=== PATIENT | male | born 1945 | race Caucasian/White ===

== ENCOUNTER 2016-12-02 07:48 | Emergency (ER) | payer MEDICARE ==
[2016-12-02 08:50] LABS: Urine Bacteria Absent (Absent); Urine Bilirubin Negative (Negative); Urine Glucose Negative (Negative); Urine Nitrite Negative (Negative)
[2016-12-02] MEDS ORDERED: Sulfamethox/Trimethoprim DS 800/160* TAB PO ONE (09:38)
--- NOTE | 2016-12-02 09:46 | ED ---
Nargis Carrasquillo Matthew, scribed for Ray Lodr MD on 12/02/16 at 0813 . GI/ HPI - HPI Summary HPI Summary: A 71 y/o male presents to the ED with urinary retention since yesterday night. Associated symptoms include subprapubic pain that is described as burning and rated 10/10 in severity, and dysuria. The patient denies fever. He has been unable to urinated since last night. He's on flomax for an enlarged prostate and hasn't recently been seen by a urologist. - History of Current Complaint Chief Complaint: EDUrogenitalProblems Time Seen by Provider: 12/02/16 08:03 Stated Complaint: UNABLE TO URINATE Hx Obtained From: Patient Onset/Duration: Started Days Ago, Atraumatic, Still Present Timing: Constant Severity: Moderate Current Severity: Moderate Pain Intensity: 10 Location of Pain: Suprapubic Pain Characteristics: Burning Associated Signs and Symptoms: Negative: Fever - Additional Pertinent History Primary Care Physician: CHUCK - Allergy/Home Medications Allergies/Adverse Reactions: Allergies Allergy/AdvReac Type Severity Reaction Status Date / Time Penicillins [PCN] Allergy Mild Rash Verified 12/02/16 07:50 PMH/Surg Hx/FS Hx/Imm Hx Endocrine/Hematology History: Denies: Hx Anticoagulant Therapy, Hx Diabetes, Hx Thyroid Disease Cardiovascular History: Denies: Hx Hypertension, Hx Pacemaker/ICD Respiratory History: Denies: Hx Asthma, Hx Chronic Obstructive Pulmonary Disease (COPD) History: Reports: Hx Benign Prostatic Hyperplasia Denies: Hx Renal Disease Musculoskeletal History: Denies: Hx Back Problems Sensory History: Reports: Hx Contacts or Glasses Opthamlomology History: Reports: Hx Contacts or Glasses Neurological History: Denies: Hx Dementia, Hx Seizures Psychiatric History: Denies: Hx Substance Abuse - Cancer History Cancer Type, Location and Year: bph - Surgical History Surgery Procedure, Year, and Place: HERNIA REPAIR 08/29/16. TESTICLE - Immunization History Date of Influenza Vaccine: up to date Infectious Disease History: No Infectious Disease History: Denies: Hx Hepatitis, Hx Human Immunodeficiency Virus (HIV), Traveled Outside the US in Last 30 Days - Family History Known Family History: Positive: Other - CA Family History: FHx of CA (brothers) - Social History Alcohol Use: Rare Hx Substance Use: No Substance Use Type: Reports: None Hx Tobacco Use: Yes Smoking Status (MU): Former Smoker Review of Systems Constitutional: Negative Negative: Fever Eyes: Negative ENT: Negative Cardiovascular: Negative Respiratory: Negative Gastrointestinal: Negative Genitourinary: Other - urinary retention Positive: burning, dysuria Musculoskeletal: Negative Skin: Negative Neurological: Negative Positive: Anxious All Other Systems Reviewed And Are Negative: Yes Physical Exam Triage Information Reviewed: Yes Vital Signs On Initial Exam: Initial Vitals Temp Pulse Resp BP Pulse Ox 98.8 F 96 16 146/78 98 12/02/16 07:50 12/02/16 07:50 12/02/16 07:50 12/02/16 07:50 12/02/16 07:50 Vital Signs Reviewed: Yes Appearance: Positive: Well-Appearing, Pain Distress - modertae Skin: Positive: Warm, Skin Color Reflects Adequate Perfusion, Dry Head/Face: Positive: Normal Head/Face Inspection Eyes: Positive: EOMI, [place] ENT: Positive: Normal ENT inspection Neck: Positive: Supple, Nontender Cardiovascular: Positive: RRR Abdomen Description: Positive: Soft, Other: - subprapubic tenderness. Negative : Guarding Musculoskeletal: Positive: Normal, Strength/ROM Intact Neurological: Positive: Normal, Sensory/Motor Intact, Alert, Oriented to Person Place, Time Psychiatric: Positive: Normal, Affect/Mood Appropriate Diagnostics - Vital Signs Vital Signs Temp Pulse Resp BP Pulse Ox 12/02/16 07:50 98.8 F 96 16 146/78 98 - Laboratory Lab Results: Lab Results 12/02/16 Range/Units 08:26 Urine Color Yellow Urine Appearance Clear Urine pH 6.0 (5-9) Ur Specific [place] 1.005 L (1.010-1.030) Urine Protein Negative (Negative) Urine Ketones Negative (Negative) Urine Blood 3+ H (Negative) Urine Nitrate Negative (Negative) Urine Bilirubin Negative (Negative) Urine Urobilinogen Negative (Negative) Ur Leukocyte Esterase 3+ H (Negative) Urine WBC (Auto) 2+(11-20/hpf) H (Absent) Urine RBC (Auto) 3+(>10/hpf) H (Absent) Urine Bacteria Absent (Absent) Urine Glucose Negative (Negative) Lab Statement: Any lab studies that have been ordered have been reviewed, and results considered in the medical decision making process. Re-Evaluation - Re-Evaluation First Eval Re-Evaluation Time: 09:36 Change: Improved Comment: The labs were reviewed with the patient and he states that he's feeling much better. GIGU Course/Dx - Course Assessment/Plan: WELL IN ED. PRESSURE RELIEVED WITH LUCERO. 400ML OUT. WILL RX BACTRIM AND F/U UROLOGY. DISCHARGE HOME STABLE. - Diagnoses Provider Diagnoses: Urinary retention, UTI (urinary tract infection) Discharge - Discharge Plan Condition: Stable Disposition: HOME Prescriptions: Sulfamethox/Trimethoprim DS* [Bactrim DS 800/160 TAB*] 1 tab PO BID #19 tab Patient Education Materials: Urinary Retention in Men (ED), Urinary Tract Infection in Men (ED), Lucero Catheter Placement and Care (ED) Referrals: Nickie Agosto, ASSOCIATE PROFESSOR OF ART [Primary Care Provider] - Additional Instructions: FOLLOW UP WITH YOUR DOCTOR AND WITH UROLOGY. CALL UROLOGY TODAY FOR FOLLOW UP. RETURN TO THE EMERGENCY DEPARTMENT FOR ANY WORSENING OF YOUR CONDITION; PAIN, FEVER, YOU FEEL ILL, THE LUCERO CATHETER IS NOT DRAINING OR QUESTIONS OR CONCERNS. The documentation as recorded by the Nargis smith Matthew accurately reflects the service I personally performed and the decisions made by me, Ray Lord MD.
[2016-12-02 10:02] VITALS: BP 113/70
--- NOTE | 2016-12-05 07:44 | PN ---
Progress Note - Progress Note Note: Patient discharged on Bactrim, which is sensitive on culture report. No further action needed.
== END 2016-12-02 10:01 | disposition home or self-care (01) ==
LOC: ED 07:48
DX: N40.1 Benign prostatic hyperplasia with lower urinary tract symptoms (principal); N39.0 Urinary tract infection, site not specified; R33.8 Other retention of urine; Z88.0 Allergy status to penicillin
CPT/HCPCS: 51702; 81003; 81015; 87077; 87086; 87186; 99282; A9270-GY

== ENCOUNTER 2017-01-24 08:15 | Inpatient (IN) | payer MEDICARE ==
[2017-01-24] MEDS ORDERED: NS 0.9% 1000 ML* 1,000 ML IV ONE (08:33)
--- NOTE | 2017-01-24 09:28 | RAD ---
INDICATION: Shortness of breath. COMPARISON: Comparison is made with a prior chest x-ray study from September 30, 2016. TECHNIQUE: AP and lateral views of the chest were obtained. FINDINGS: The heart is within normal limits in size. Mediastinal and hilar contours appear within normal limits. The lungs are hyperinflated and clear with flattening of the diaphragms consistent with chronic obstructive pulmonary disease. No pleural effusion is seen. IMPRESSION: COPD, NO EVIDENCE FOR ACUTE FINDING.
[2017-01-24] MEDS: Albuterol/Ipratropium NEB.SOL* Albuterol 2.5 MG/Ipratropium 0.5 MG 3 ML INH SCH ×3 (09:37→10:43)
[2017-01-24 09:52] LABS: Hematocrit 40 % (42-52); Hemoglobin 12.9 g/dl (14.0-18.0); Mean Corpuscular HGB Conc 32 g/dl (31-36); Mean Corpuscular Hemoglobin 28 pg (27-31); Mean Corpuscular Volume 86 fL (80-94); Mean Platelet Volume 10 um3 (7.4-10.4); Red Blood Count 4.64 10^6/ul (4.0-5.4); Red Cell Distribution Width 18 % (10.5-15)
[2017-01-24 10:05] LABS: C Reactive Protein 7.77 mg/L (< 5.00); Calcium 9.1 mg/dL (8.6-10.3); EGFR Non-African American 73.9 (>60); Globulin 2.5 g/dL (2-4); Potassium 3.3 mmol/L (3.5-5.0); Total Bilirubin 0.5 mg/dL (0.2-1.0); Total Protein 6.5 g/dL (6.4-8.9)
[2017-01-24 10:07] LABS: Troponin I 0.01 ng/mL (<0.04)
[2017-01-24] MEDS ORDERED: Albuterol/Ipratropium NEB.SOL* Albuterol 2.5 MG/Ipratropium 0.5 MG 3 ML INH PRN (11:36)
[2017-01-24] MEDS ORDERED: Potassium Chlor TAB* 20 MEQ TAB.ER PO ONE (11:38)
[2017-01-24] MEDS ORDERED: Acetaminophen TAB* 325 MG PO PRN (11:38)
--- NOTE | 2017-01-24 14:49 | ED ---
Jony Carrasquillo Billy, scribed for Bret Sanchez MD on 01/24/17 at 0832 . Shortness of Breath - HPI Summary HPI Summary: Patient is a 71 year-old male with a history of emphysema [place] [facility] [place]. Patient states that his symptoms began 3-4 days ago and have gradually worsened over time. SOB is improved with upright position, worse laying down. Duoneb and Solu-Medrol given en route LEAD NETWORK ARCHITECT improved his symptoms. He also reports a moderately productive cough, yellow sputum. Denies chest pain , N/V, fevers, or chills. - History of Current Complaint Chief Complaint: EDShortnessOfBreath Time Seen by Provider: 01/24/17 08:28 Hx Obtained From: Patient Onset/Duration: Gradual Onset, Lasting Days, Still Present Timing: Constant Current Severity: Moderate Dyspnea At: Rest Aggrevating Factors: Recumbent Position Alleviating Factors: EMS Tx, Upright Position Associated Signs & Symptoms: Cough (Productive) - Allergy/Home Medications Allergies/Adverse Reactions: Allergies Allergy/AdvReac Type Severity Reaction Status Date / Time Penicillins [PCN] Allergy Mild Rash Verified 12/02/16 07:50 PMH/Surg Hx/FS Hx/Imm Hx Endocrine/Hematology History: Denies: Hx Anticoagulant Therapy, Hx Diabetes, Hx Thyroid Disease Cardiovascular History: Denies: Hx Hypertension, Hx Pacemaker/ICD Respiratory History: Reports: Hx Chronic Obstructive Pulmonary Disease (COPD), Other Respiratory Problems/Disorders - emphysema Denies: Hx Asthma History: Reports: Hx Benign Prostatic Hyperplasia Denies: Hx Renal Disease Musculoskeletal History: Denies: Hx Back Problems Sensory History: Reports: Hx Contacts or Glasses Opthamlomology History: Reports: Hx Contacts or Glasses Neurological History: Denies: Hx Dementia, Hx Seizures Psychiatric History: Denies: Hx Substance Abuse - Cancer History Cancer Type, Location and Year: bph - Surgical History Surgery Procedure, Year, and Place: HERNIA REPAIR 08/29/16. TESTICLE - Immunization History Date of Influenza Vaccine: up to date Infectious Disease History: No Infectious Disease History: Denies: Hx Hepatitis, Hx Human Immunodeficiency Virus (HIV), Traveled Outside the US in Last 30 Days - Family History Known Family History: Positive: Diabetes - sister, Other - CA Family History: FHx of CA (brothers) - Social History Alcohol Use: Rare Hx Substance Use: No Substance Use Type: Reports: None Hx Tobacco Use: Yes Smoking Status (MU): Former Smoker - quit 2016 Review of Systems Negative: Fever, Chills Negative: Chest Pain Positive: Shortness Of Breath, Cough Negative: Vomiting, Nausea All Other Systems Reviewed And Are Negative: Yes Physical Exam - Summary Physical Exam Summary: The patient is a thin male in no acute distress and in no acute pain. The skin is warm and dry and skin color reflects adequate perfusion. HEENT: The head is normocephalic and atraumatic. The pupils are equal and reactive. The conjunctivae are clear and without drainage. Nares are patent and without drainage. Mouth reveals moist mucous membranes and the throat is without erythema and exudate. The external ears are intact. The ear canals are patent and without drainage. The tympanic membranes are intact. Neck is supple with full range of motion and non-tender. There are no carotid bruits. There is no neck vein distension. Respiratory: Chest is non-tender. Patient is speaking in full sentences. Bilateral wheezing, decreased breath sounds crackles in bases of the lungs. Cardiovascular: Heart is regular rate and rhythm. There is no murmur or rub auscultated. There is no peripheral edema and pulses are symmetrical and equal. Abdomen: The abdomen is soft and non-tender. There are normal bowel sounds heard in all four quadrants and there is no organomegaly palpated. Musculoskeletal: There is no back pain noted. Extremities are non-tender with full range of motion. There is good capillary refill. There is no peripheral edema or calf tenderness elicited. Neurological: Patient is alert and oriented to person, place and time. The patient has symmetrical motor strength in all four extremities. Cranial nerves are grossly intact. Deep tendon reflexes are symmetrical and equal in all four extremities. Psychiatric: The patient has an appropriate affect and does not exhibit any anxiety or depression. Triage Information Reviewed: Yes Vital Signs On Initial Exam: Initial Vitals Temp Pulse Resp BP Pulse Ox 98.6 F 77 22 144/73 95 01/24/17 08:22 01/24/17 08:22 01/24/17 08:22 01/24/17 08:22 01/24/17 08:22 Vital Signs Reviewed: Yes Diagnostics - Vital Signs Vital Signs Temp Pulse Resp BP Pulse Ox 01/24/17 08:22 98.6 F 77 22 144/73 95 - Laboratory Result Diagrams: 01/24/17 09:15 01/24/17 09:15 Lab Statement: Any lab studies that have been ordered have been reviewed, and results considered in the medical decision making process. - Radiology CXR Radiology Interpretation Completed By: Radiologist - COPD. NO ACUTE FINDINGS. - EKG 0834 EKG Interpretation: NSR 72 bpm, no ST elevation Course/Dx - Course Assessment/Plan: Patient is a 71 year-old male with a history of emphysema BIBA to [facility] presenting with SOB. Patient states that his symptoms began 3-4 days ago and have gradually worsened over time. SOB is improved with upright position , worse laying down. Duoneb and Solu-Medrol given en route LEAD NETWORK ARCHITECT improved his symptoms. He also reports a moderately productive cough, yellow sputum. Denies chest pain, N/V, fevers, or chills. Bloodwork with slight anemia, no bandemia, potassium of 3.3, and CRP of 7.77. Influenza A and B are negative. CXR shows COPD without evidence of acute findings. EKG showed NSR 77 bpm. EMS gave the patient 2x Duonebs, solu-medrol, and 2 g of magnesium en route. He was unable to speak in full sentences at that time. By the time of his arrival, he was able to speak in full sentences, although he still has diffuse wheezing and crackles. He was given more duonebs with improvement. However, when we removed the oxygen, he became hypoxic. Therefore I discussed the findings and test results with Dr. Herrera who accepted the patient for admission. A&Ox3, hemodynamically stable. - Diagnoses Provider Diagnoses: COPD exacerbation - Physician Notifications Discussed Care of Patient With: Dr. Herrera (hospitalist) @ 1030: accepted admission. Discharge - Discharge Plan Condition: Stable Disposition: ADMITTED TO [facility] Referrals: Nickie Agosto, AFTER SCHOOL PROGRAM TEACHER [Primary Care Provider] - The documentation as recorded by the Jony smith Billy accurately reflects the service I personally performed and the decisions made by me, Bret Sanchez MD.
--- NOTE | 2017-01-24 14:55 | HP ---
AMENDED REPORT NOW INCLUDES COSIGNER DESIGNATION - ESIGNED BEFORE ADJUSTMENT HISTORY AND PHYSICAL: DATE OF ADMISSION: 01/24/17 PRIMARY CARE PHYSICIAN: Nickie Agosto in [place]. ATTENDING PHYSICIAN: Dr. Justin Herrera *(dictation provided by Yara Kennedy NP). CHIEF COMPLAINT: Shortness of breath. HISTORY OF PRESENT ILLNESS: Mr. Reyes is a 71-year-old male with a past medical history of prolonged smoking for over 50 years and emphysema who presents to the hospital today with complaint of shortness of breath. Mr. Reyes states that his symptoms began approximately 2 to 3 days ago. He describes chest congestion and coughing. Last night he became acutely much more ill. He had difficulty lying flat in bed. He was very short of breath. By early this morning he could hardly catch his breath at all and EMS was called. EMS notes that the patient was tripoding and unable to speak in complete sentences. They transported him to the emergency room. En route, he was given Solu-Medrol and magnesium with good improvement. Mr. Reyes denies any other complaints. He has had no fevers, no chills, no unintended weight loss, no chest pain. No nausea or vomiting. He has been eating well. In the emergency room, Mr. Reyes was requiring 2 L nasal cannula but was breathing easily. Laboratory values were essentially unremarkable. Chest x- ray was negative. PAST MEDICAL HISTORY: 1. Emphysema. 2. BPH. 3. Duodenal ulcer in September 2016. 4. Right inguinal hernia repair in 2015. 5. Tonsillectomy. 6. Adenoidectomy. MEDICATIONS: 1. Finasteride 5 mg p.o. daily. 2. Omeprazole 20 mg p.o. b.i.d. 3. Tamsulosin 0.4 mg p.o. daily. 4. Albuterol p.r.n. ALLERGIES: PENICILLIN. FAMILY HISTORY: The patient's mother and father but he does not know the cause of their . He has 2 brothers who related to cancer. SOCIAL HISTORY: The patient is to be a 1 to 2 pack a day smoker for over 49 years but quit last year. Denies any alcohol use. Has been reported to have occasional marijuana use. He lives with his son but his daughter Jennifer Haile is the healthcare proxy. REVIEW OF SYSTEMS: A 14-point review of systems was completed on Mr. Reyes and all those not mentioned above were negative. PHYSICAL EXAMINATION GENERAL: Mr. Reyes is sitting up in the bed. He is in no acute distress. VITAL SIGNS: Blood pressure 128/67, heart rate 67, temperature 98.6, respiratory rate 21, O2 saturation 98% on 2 L nasal cannula. LUNGS: Diminished with wheezing bilaterally. There is no accessory muscle use. HEART: S1, S2. No murmur, rub or gallop and regular. ABDOMEN: Soft, nontender with bowel sounds positive x4. EXTREMITIES: There is no cyanosis or edema. NEUROLOGIC: He is alert and oriented x3. He moves all extremities equally. There is no facial asymmetry or focal weakness. Extraocular movements are intact. SKIN: Intact. LABORATORY DATA AND DIAGNOSTIC STUDIES: Sodium 140, potassium 3.3, chloride 100, serum bicarbonate 32, BUN 22, creatinine 1.00, glucose 130. WBC 5.0, hemoglobin 12.0, hematocrit 40, platelets 112. Lactic acid 1.4. CRP 7.77, troponin 0.01. Flu swab is negative. EKG shows a sinus rhythm with a heart rate in 80s. No evidence of ischemia. Chest x-ray is negative. ASSESSMENT: Mr. Reyes is a 71-year-old male with past medical history of emphysema who presents to the hospital today with 2 to 3 days of congestion culminating in severe shortness of breath last evening with suspected chronic obstructive pulmonary disease exacerbation. Our plans are for inpatient admission as the expected length of stay will be greater than 2 days for the following. 1. Chronic obstructive pulmonary disease exacerbation: The patient has been given Solu-Medrol en route to the hospital with good improvement. Plan to continue Solu- Medrol 60 mg IV q.12 h. The patient can go on to prednisone taper when clear clinical improvement is noted. The patient is on doxycycline for antibiotic coverage. I see no evidence of pneumonia on chest x-ray. The patient is on DuoNeb q.4 h. as needed. She will have oxygen available per respiratory therapy protocol. The patient is not currently on any medications other than albuterol outpatient. The patient would benefit from long-acting agent such as Spiriva and possibly Advair as well at the time of discharge. 2. Benign prostatic hypertrophy. Continue finasteride and tamsulosin. 3. History of duodenal ulcer. Continue omeprazole. 4. DVT prophylaxis with SCDs. 5. Code status is DNR with a trial period of intubation. A MOLST form has been completed. TIME SPENT: Approximately 60 minutes were spent on the admission of this patient, more than half time spent with the patient at the bedside reviewing the events leading up to this hospitalization, performing physical examination and reviewing my [place] [id number]/CPS #: [id number] JACQUELINE
[2017-01-24 15:07] LABS: Urine Bacteria Absent (Absent); Urine Bilirubin Negative (Negative); Urine Glucose Negative (Negative); Urine Nitrite Negative (Negative)
[2017-01-24] MEDS: Omeprazole CAP* 20 MG PO SCH (15:51)
[2017-01-24] MEDS: DOXYcycline CAP(*) 100 MG PO SCH (20:08)
[2017-01-24] MEDS: methylPREDNISolone SOD SUCC* 125 MG 2 ML VIAL IV SCH (20:08)
[2017-01-25] MEDS: Finasteride TAB* 5 MG PO SCH (07:48)
[2017-01-25] MEDS: DOXYcycline CAP(*) 100 MG PO SCH ×2 (07:48→21:07)
[2017-01-25] MEDS: methylPREDNISolone SOD SUCC* 125 MG 2 ML VIAL IV SCH ×2 (07:48→21:07)
[2017-01-25] MEDS: Omeprazole CAP* 20 MG PO SCH ×2 (07:48→17:23)
[2017-01-25] MEDS: Tamsulosin CAP* 0.4 MG PO SCH (07:48)
[2017-01-25 07:59] LABS: Hematocrit 38 % (42-52); Hemoglobin 12.5 g/dl (14.0-18.0); Mean Corpuscular HGB Conc 33 g/dl (31-36); Mean Corpuscular Hemoglobin 28 pg (27-31); Mean Corpuscular Volume 86 fL (80-94); Mean Platelet Volume 9 um3 (7.4-10.4); Red Blood Count 4.42 10^6/ul (4.0-5.4); Red Cell Distribution Width 18 % (10.5-15); White Blood Count 10.1 10^3/ul (3.5-10.8)
[2017-01-25 08:13] LABS: BUN/Creatinine Ratio 25.3 (8-20); Calcium 8.8 mg/dL (8.6-10.3); EGFR African American 124.7 (>60); Magnesium 1.9 mg/dL (1.9-2.7); Potassium 4.8 mmol/L (3.5-5.0)
--- NOTE | 2017-01-25 16:32 | PN ---
Subjective Date of Service: 01/25/17 Interval History: patient reports he feels better today. Continue to have intermittent cough that is occasionally productive reporting thick white/yellow sputum. Reports sob with exertion. No fever or chills. reports good appetite. Objective Active Medications: Acetaminophen (Tylenol Tab*) 650 mg PO Q6H PRN PRN Reason: PAIN Albuterol/Ipratropium (Duoneb Neb.Tammie*) 1 neb INH Q4H PRN PRN Reason: SOB/WHEEZING Doxycycline Hyclate (Vibramycin Cap(*)) 100 mg PO BID [facility] Last Admin: 01/25/17 07:48 Dose: 100 mg Finasteride (Proscar Tab*) 5 mg PO DAILY [facility] Last Admin: 01/25/17 07:48 Dose: 5 mg Methylprednisolone Sodium Succinate (Solu-Medrol*) 40 mg IV Q12H [facility] Omeprazole (Prilosec Cap*) 20 mg PO BID@0730,1630 [facility] Last Admin: 01/25/17 07:48 Dose: 20 mg Tamsulosin HCl (Flomax Cap*) 0.4 mg PO DAILY [facility] Last Admin: 01/25/17 07:48 Dose: 0.4 mg Vital Signs 01/24/17 01/24/17 01/24/17 16:48 19:43 20:00 Temperature 97.5 F Pulse Rate 65 Respiratory 20 20 Rate Blood Pressure 121/66 (mmHg) O2 Sat by Pulse 98 97 Oximetry 01/24/17 01/25/17 01/25/17 23:23 00:00 03:27 Temperature 97.6 F 97.4 F Pulse Rate 69 57 Respiratory 16 16 Rate Blood Pressure 122/67 114/66 (mmHg) O2 Sat by Pulse 98 97 99 Oximetry 01/25/17 01/25/17 01/25/17 08:00 08:04 09:09 Temperature 97.2 F Pulse Rate 63 72 Respiratory 16 19 16 Rate Blood Pressure 139/66 (mmHg) O2 Sat by Pulse 99 97 99 Oximetry Oxygen Devices in Use Now: None Appearance: elderly male sitting up in bed in NAD A+Ox3 Eyes: No Scleral Icterus, PERRLA Ears/Nose/Mouth/Throat: NL Teeth, Lips, Gums, Mucous Membranes Moist Neck: NL Appearance and Movements; NL JVP Respiratory: Symmetrical Chest Expansion and Respiratory Effort, - - expiratory wheezing throughout with good aeration noted Cardiovascular: NL Sounds; No Murmurs; No JVD, RRR, No Edema Abdominal: NL Sounds; No Tenderness; No Distention Extremities: No Edema, No Clubbing, Cyanosis Skin: No Rash or Ulcers, No Nodules or Sclerosis Neurological: Alert and Oriented x 3, NL Sensation, NL Muscle Strength and Tone Lines/Tubes/Other Access: Clean, Dry and Intact Peripheral IV Nutrition: Taking PO's Result Diagrams: 01/25/17 07:46 01/25/17 07:46 Microbiology and Other Data: Microbiology 01/24/17 14:35 Gram Stain - Final Sputum Expectorated Assess/Plan/Problems-Billing Assessment: Mr. Reyes is 71 yo male with PMH emphysema who presents to the hospital on 01/24 with c/o congestion and SOB. Per daughter 60 lb unintentional weight loss in the past year and is being worked up by PCP. - Patient Problems (1) COPD exacerbation Comment: - negative influenza. suspect reactive airway 2nd to viral illness. - negative blood cx. No leukocytosis or fevers. - improving. continue agressive pulm tolieting. - start Duoneb Q4hr while awake. - Continue Doxy, titrate solumedrol. - start mucinex (2) BPH (benign prostatic hyperplasia) Comment: - continue flomax (3) Hx of duodenal ulcer Comment: - 09/2016 - continue PPI (4) DVT prophylaxis Comment: HSQ Status and Disposition: inpatient with COPD exacerbation. Home when stable. Updated daughter Jennifer.
[2017-01-25] MEDS: guaiFENesin ER TAB 600 MG PO SCH ×2 (17:23→21:06)
[2017-01-25] MEDS: Albuterol/Ipratropium NEB.SOL* Albuterol 2.5 MG/Ipratropium 0.5 MG 3 ML INH SCH ×3 (17:45→23:02)
[2017-01-25] MEDS: Heparin VIAL(*) 5000 UNITS/ML VIAL (FIVE THOUSAND) SUBCUT SCH (21:02)
[2017-01-26] MEDS: Albuterol/Ipratropium NEB.SOL* Albuterol 2.5 MG/Ipratropium 0.5 MG 3 ML INH SCH ×3 (04:37→11:41)
[2017-01-26 08:35] VITALS: BP 108/58
[2017-01-26 09:08] LABS: Hematocrit 39 % (42-52); Hemoglobin 12.7 g/dl (14.0-18.0); Mean Corpuscular HGB Conc 33 g/dl (31-36); Mean Corpuscular Hemoglobin 28 pg (27-31); Mean Corpuscular Volume 85 fL (80-94); Mean Platelet Volume 10 um3 (7.4-10.4); Red Cell Distribution Width 18 % (10.5-15); White Blood Count 10.1 10^3/ul (3.5-10.8)
[2017-01-26 09:09] LABS: BUN/Creatinine Ratio 29.6 (8-20); EGFR African American 121.2 (>60); EGFR Non-African American 94.2 (>60); Potassium 4.3 mmol/L (3.5-5.0)
[2017-01-26] MEDS: guaiFENesin ER TAB 600 MG PO SCH (09:11)
[2017-01-26] MEDS: DOXYcycline CAP(*) 100 MG PO SCH (09:11)
[2017-01-26] MEDS: Finasteride TAB* 5 MG PO SCH (09:11)
[2017-01-26] MEDS: Tamsulosin CAP* 0.4 MG PO SCH (09:11)
[2017-01-26] MEDS: Heparin VIAL(*) 5000 UNITS/ML VIAL (FIVE THOUSAND) SUBCUT SCH (09:11)
[2017-01-26] MEDS: methylPREDNISolone SOD SUCC* 125 MG 2 ML VIAL IV SCH (09:12)
--- NOTE | 2017-01-26 11:30 | DCNOTE ---
Subjective Date of Service: 01/26/17 Interval History: Patient reports he feels much better today and wants to go home. Reports he slept well last nihght. Cough is much better, less sputum production. Reports SOB is much better and feels that he is at his baseline. He reports he isnt very active at home and mostly sits around and watches TV. Pt ambulated on RA 96 %. No fevers or chills. Reports good appetite. No N/V/D or abdominal pain. Discussed his weight loss over the past year per daughter around 60 lbs. He reports his appetite is good and he eats well. Denies night sweats. He reports his brothers also lost "a lot of weight" when they were older but states they did have colon and prostate cancer. His last colonoscopy was "a long time ago". Encouraged patient to f/u with his PCP and consider another colonoscopy. Objective Active Medications: Acetaminophen (Tylenol Tab*) 650 mg PO Q6H PRN PRN Reason: PAIN Albuterol/Ipratropium (Duoneb Neb.Tammie*) 1 neb INH [id number] AWAKE [facility] Last Admin: 01/26/17 08:10 Dose: 1 neb Doxycycline Hyclate (Vibramycin Cap(*)) 100 mg PO BID [facility] Last Admin: 01/26/17 09:11 Dose: 100 mg Finasteride (Proscar Tab*) 5 mg PO DAILY [facility] Last Admin: 01/26/17 09:11 Dose: 5 mg Guaifenesin (Mucinex*) 1,200 mg PO Q12HR [facility] Last Admin: 01/26/17 09:11 Dose: 1,200 mg Heparin Sodium (Porcine) (Heparin Vial(*)) 5,000 units SUBCUT Q12HR [facility] Last Admin: 01/26/17 09:11 Dose: 5,000 units Methylprednisolone Sodium Succinate (Solu-Medrol*) 40 mg IV Q12H [facility] Last Admin: 01/26/17 09:12 Dose: 40 mg Omeprazole (Prilosec Cap*) 20 mg PO BID@0730,1630 [facility] Last Admin: 01/25/17 17:23 Dose: 20 mg Tamsulosin HCl (Flomax Cap*) 0.4 mg PO DAILY [facility] Last Admin: 01/26/17 09:11 Dose: 0.4 mg Vital Signs 01/25/17 01/25/17 01/25/17 15:59 16:35 20:00 Temperature 98.2 F Pulse Rate 60 66 Respiratory 28 16 18 Rate Blood Pressure 126/79 (mmHg) O2 Sat by Pulse 99 93 Oximetry 01/25/17 01/25/17 01/26/17 23:03 23:43 00:00 Temperature 97.3 F Pulse Rate 60 73 Respiratory 18 16 Rate Blood Pressure 113/59 (mmHg) O2 Sat by Pulse 99 91 93 Oximetry 01/26/17 01/26/17 01/26/17 00:57 07:52 08:00 Temperature 97.7 F Pulse Rate 64 Respiratory 24 16 Rate Blood Pressure 108/58 (mmHg) O2 Sat by Pulse 93 94 99 Oximetry 01/26/17 08:12 Temperature Pulse Rate 78 Respiratory 16 Rate Blood Pressure (mmHg) O2 Sat by Pulse 99 Oximetry Oxygen Devices in Use Now: None Appearance: 71 yo male sitting up in bed in NAD. A+O x3. Eyes: No Scleral Icterus, PERRLA Ears/Nose/Mouth/Throat: NL Teeth, Lips, Gums, Mucous Membranes Moist Neck: NL Appearance and Movements; NL JVP Respiratory: Symmetrical Chest Expansion and Respiratory Effort, - - mild right exp wheezes noted in upper lobe, left lung clear. no dyspnes noted Cardiovascular: NL Sounds; No Murmurs; No JVD, RRR, No Edema Abdominal: NL Sounds; No Tenderness; No Distention Lymphatic: No Cervical Adenopathy Extremities: No Edema, No Clubbing, Cyanosis Skin: No Rash or Ulcers, No Nodules or Sclerosis Neurological: Alert and Oriented x 3, NL Sensation, NL Gait, NL Muscle Strength and Tone Lines/Tubes/Other Access: Clean, Dry and Intact PICC Line Nutrition: Taking PO's Result Diagrams: 01/26/17 08:39 01/26/17 08:39 Microbiology and Other Data: Microbiology 01/24/17 14:35 Gram Stain - Final Sputum Expectorated Assess/Plan/Problems-Billing Assessment: Mr. Reyes is 71 yo male with PMH emphysema who presents to the hospital on 01/24 with c/o congestion and SOB. Per daughter 60 lb unintentional weight loss in the past year - Patient Problems (1) COPD exacerbation Comment: - negative influenza. suspect reactive airway 2nd to viral illness. Much improvement today. Off oxygen. - negative blood, urine and sputum cx. No leukocytosis or fevers. - plan to set pt up with a home nebulizer - Continue Doxy x 5 days and prednisione x 3 days - continue mucinex - send pt home on Spirivia and albuterol HFA. Follow up with PCP and referral to pulm. (2) Weight loss Comment: - unointentional weight loss. Close f/u with PCP. Pt should undergo a colonoscopy and prostate screening - protein and albumin wnls. (3) BPH (benign prostatic hyperplasia) Comment: - continue flomax (4) Hx of duodenal ulcer Comment: - 09/2016 - continue PPI (5) DVT prophylaxis Comment: HSQ Status and Disposition: inpatient with COPD exacerbation. stable for DC to home.
[2017-01-26] MEDS: Omeprazole CAP* 20 MG PO SCH (12:42)
--- NOTE | 2017-01-26 13:21 | DS ---
DISCHARGE SUMMARY: DATE OF ADMISSION: 01/24/17 DATE OF DISCHARGE: 01/26/17 PROVIDER: Luis Angel Davis NP. ATTENDING PHYSICIAN: Dr. Rosado *(report dictated by Luis Angel Davis NP). PRIMARY CARE PROVIDER: Ashlyn Stinson. PRIMARY DIAGNOSIS: Chronic obstructive pulmonary disease exacerbation. SECONDARY DIAGNOSES: 1. Long history of tobacco abuse quitting 1 year ago. 2. Unintentional weight loss in the past year, approximately 60 pounds per daughter. 3. History of emphysema. 4. Benign prostatic hyperplasia. 5. Duodenal ulcer in September 2016 which was thought to be secondary to Aleve. 6. Right inguinal hernia repair in 2016. 7. Status post tonsillectomy. 8. Status post adenoidectomy. DISCHARGE MEDICATIONS: 1. Proscar 5 mg p.o. daily. 2. Flomax 0.4 mg p.o. daily. 3. Omeprazole 20 mg p.o. b.i.d. New medications prescribed at discharge: 1. Mucinex 600 mg p.o. b.i.d. p.r.n. x5 days. 2. Spiriva 1 cap inhalation daily. 3. Doxycycline 100 mg p.o. b.i.d. x5 days. 4. Albuterol HFA inhaler 1 puff INH q. 4 hours p.r.n. 5. Albuterol 2.5 mg/3mL nebulizer INH q. 4 hours p.r.n. shortness of breath. 6. Prednisone 40 mg p.o. daily x3. HISTORY OF PRESENT ILLNESS AND HOSPITAL COURSE: Please see history and physical by Yara Kennedy NP, for full admission details, but in summary, this is a 71-year-old male with a 50-year smoking history with history of emphysema who presented to the hospital on 01/24/17 with complaint of shortness of breath for 2 to 3 days. He reports initially he developed chest congestion, runny nose, and cough. He became concerned. He became very short of breath and he could hardly catch his breath and he called EMS. Per EMS notes, the patient was tripoding, unable to speak in complete sentences. He was brought to the emergency department and was admitted to the hospitalist service for COPD exacerbation. He was started on IV Solu-Medrol, doxycycline and DuoNebs with aggressive pulmonary toileting. The patient had no leukocytosis and his chest x -ray on admission showed "COPD, no evidence for acute finding." The patient initially was not requiring oxygen. On admission, he was noted to have O2 sats between 90 and 98. However, by the next day, the patient did require 3 L which has since resolved for the past 24 hours. The patient has done well throughout his hospitalization. Since last evening, he has been off oxygen and ambulating with noted O2 sat around 95% to 96%. Today, the patient reports that he feels much better and would like to go home. The patient was given a lot of education in the hospital about his lung disease and that he is not on the appropriate medications and will be started on Spiriva at discharge as well. He is being setup with a nebulizer machine for home with albuterol nebulizing solution and an albuterol HFA inhaler. The patient is interested in seeing a insurance loss adjuster at discharge. I have referred him to Dr. De Jesus, however due to that he goes to the CT and is unclear if this will be covered by his insurance and this was discussed with his daughter. I referred the patient to talk to his primary care provider and he may need to be referred to insurance loss adjuster at the CT. Per daughter, the patient has lost approximately 60 pounds of unintentional weight loss over the past year and reports that both of his brothers lost a lot of weight at this age, however talking with the daughter and the patient, his brothers had prostate and/or colon cancer. It was discussed with the daughter and the patient that he should undergo cancer screening for lung, colon, and prostate and follow up closely with his primary care provider. His protein and albumin levels are within normal limits. The patient reports that he has a good appetite. It sounds like the patient had a colonoscopy many years ago and is not thrilled to undergo that experience again, however I did discuss the patient that I do have concerns about his unintentional weight loss. The patient denies any night sweats. DISCHARGE PLAN: The patient is stable for discharge to home. He was instructed that he needs to call Nickie Agosto tomorrow to make an appointment to be seen this week. As well, he has been referred to Dr. De Jesus. I discussed with him he could call her office to give insurance information to see if it would be covered as it is local and the patient reports that it is difficult to drive to [place] at the [place]. If that is the case, then I encouraged the patient to follow up with the CT insurance loss adjuster. The patient has been setup with the nebulizing machine at home. Worsening signs and symptoms were discussed with the patient and when to return to the emergency department, he states understanding. TIME SPENT: Approximately 60 minutes was spent on this discharge. LUIS ANGEL DAVIS, SEAN [id number]/CPS #: [id number] [id number]
== END 2017-01-26 13:10 | disposition home or self-care (01) | DRG 191 ==
LOC: ED 08:15 → MED 10:31
PROVIDERS: ADMIT Internal Medicine; ATTEND Internal Medicine
DX: J44.1 Chronic obstructive pulmonary disease with (acute) exacerbation (principal); Z68.1 Body mass index [BMI] 19.9 or less, adult; N40.0 Benign prostatic hyperplasia without lower urinary tract symptoms; F12.90 Cannabis use, unspecified, uncomplicated; Z66 Do not resuscitate; R63.4 Abnormal weight loss; Z80.42 Family history of malignant neoplasm of prostate; Z87.891 Personal history of nicotine dependence; Z88.0 Allergy status to penicillin; Z80.0 Family history of malignant neoplasm of digestive organs
CPT/HCPCS: 36415; 71020; 80048; 80053; 81003; 81015; 82553; 83605; 83735; 83880; 84484; 85025; 86140; 87040; 87070; 87086; 87205; 87502; 93005; 94640; 94760; A9270-GY; J1644; J2930

== ENCOUNTER 2017-02-09 13:46 | Emergency (ER) | payer MEDICARE ==
[2017-02-09] MEDS ORDERED: Ondansetron INJ* 2 MG/ML VIAL IV ONE (14:07)
[2017-02-09] MEDS ORDERED: NS 0.9% 1000 ML* 1,000 ML IV ONE (14:07)
--- NOTE | 2017-02-09 14:37 | RAD ---
INDICATION: Constipation and abdominal distention COMPARISON: CT abdomen pelvis dated August 31, 2016 TECHNIQUE: Supine and upright views of the abdomen were obtained. FINDINGS: AP and lateral views of the abdomen depict a large amount of stool overlying the cecum and proximal colon with a relative possibility of stool and gas overlying the more distal colon. There is gas overlying the expected location of the rectum. There is no free intraperitoneal air. No grossly abnormal or pathologic appearing calcifications are noted. Visualized bones are within normal limits for the patient's age. IMPRESSION: Radiographic findings described in the bilateral port can be compatible with constipation in the correct clinical setting.
[2017-02-09 15:38] LABS: Hematocrit 37 % (42-52); Hemoglobin 12.1 g/dl (14.0-18.0); Mean Corpuscular HGB Conc 32 g/dl (31-36); Mean Corpuscular Hemoglobin 28 pg (27-31); Mean Corpuscular Volume 87 fL (80-94); Mean Platelet Volume 9 um3 (7.4-10.4); Red Blood Count 4.32 10^6/ul (4.0-5.4); Red Cell Distribution Width 19 % (10.5-15)
[2017-02-09 16:05] LABS: Albumin 3.9 g/dL (3.2-5.2); BUN/Creatinine Ratio 25.8 (8-20); C Reactive Protein 3.57 mg/L (< 5.00); Calcium 9.6 mg/dL (8.6-10.3); EGFR African American 103.3 (>60); EGFR Non-African American 80.3 (>60); Globulin 2.8 g/dL (2-4); Potassium 3.9 mmol/L (3.5-5.0); Total Bilirubin 0.9 mg/dL (0.2-1.0); Total Protein 6.7 g/dL (6.4-8.9)
[2017-02-09] MEDS ORDERED: Albuterol/Ipratropium NEB.SOL* Albuterol 2.5 MG/Ipratropium 0.5 MG 3 ML INH ONE (16:21)
[2017-02-09] MEDS ORDERED: Magnesium CITRATE* 300 ML BTL PO ONE (16:22)
[2017-02-09 16:54] VITALS: BP 122/77
--- NOTE | 2017-02-11 07:50 | ED ---
Adrianne Carrasquillo Erika, scribed for Jin Zambrano MD on 02/09/17 at 1422 . GI/ HPI - HPI Summary HPI Summary: Patient is a 71-year-old male presenting to the ED with a CC of constipation. Patient reports he normally has a BM every morning, but his last BM was yesterday morning. Last night, patient developed abdominal distension and diffuse abdominal pain, which has been worsening. Pain is aggravated by palpation. Patient also reports nausea and decreased appetite, and vomiting starting now while in the room. Patient denies urinary symptoms. PSHx inguinal hernia repair. - History of Current Complaint Chief Complaint: EDShortnessOfBreath Time Seen by Provider: 02/09/17 13:57 Stated Complaint: DIFF BREATHING Hx Obtained From: Patient Onset/Duration: Started Hours Ago, Atraumatic, Still Present Timing: Constant Severity: Moderate Pain Intensity: 6 Location of Pain: Diffuse Associated Signs and Symptoms: Positive: Nausea, Vomiting, Constipation, Abdominal Pain - Additional Pertinent History Primary Care Physician: CHUCK - Allergy/Home Medications Allergies/Adverse Reactions: Allergies Allergy/AdvReac Type Severity Reaction Status Date / Time Penicillins [PCN] Allergy Mild Rash Verified 02/09/17 13:50 PMH/Surg Hx/FS Hx/Imm Hx Endocrine/Hematology History: Denies: Hx Anticoagulant Therapy, Hx Diabetes, Hx Thyroid Disease Cardiovascular History: Denies: Hx Hypertension, Hx Pacemaker/ICD Respiratory History: Reports: Hx Chronic Obstructive Pulmonary Disease (COPD), Other Respiratory Problems/Disorders - emphysema Denies: Hx Asthma GI History: Reports: Hx Gastroesophageal Reflux Disease History: Reports: Hx Benign Prostatic Hyperplasia Denies: Hx Renal Disease Musculoskeletal History: Denies: Hx Back Problems Sensory History: Reports: Hx Contacts or Glasses Opthamlomology History: Reports: Hx Contacts or Glasses Neurological History: Denies: Hx Dementia, Hx Seizures Psychiatric History: Denies: Hx Substance Abuse - Surgical History Surgery Procedure, Year, and Place: HERNIA REPAIR 08/29/16. TESTICLE - Immunization History Date of Influenza Vaccine: up to date Infectious Disease History: No Infectious Disease History: Denies: Hx Hepatitis, Hx Human Immunodeficiency Virus (HIV), Traveled Outside the [place] in Last 30 Days - Family History Known Family History: Positive: Diabetes - sister, Other - CA Family History: FHx of CA (brothers) - Social History Lives: With Family Alcohol Use: Rare Hx Substance Use: No Substance Use Type: Reports: None Hx Tobacco Use: Yes Smoking Status (MU): Former Smoker - quit 2016 Review of Systems Gastrointestinal: Other - constipation Positive: Abdominal Pain, Vomiting, Nausea Negative: dysuria All Other Systems Reviewed And Are Negative: Yes Physical Exam Triage Information Reviewed: Yes Vital Signs On Initial Exam: Initial Vitals Temp Pulse Resp BP Pulse Ox 98.2 F 81 26 161/92 95 02/09/17 13:50 02/09/17 13:50 02/09/17 13:50 02/09/17 13:50 02/09/17 13:50 Vital Signs Reviewed: Yes Appearance: Positive: Well-Appearing, No Pain Distress Skin: Positive: Warm, Skin Color Reflects Adequate Perfusion, Dry Head/Face: Positive: Normal Head/Face Inspection Eyes: Positive: Normal ENT: Positive: Normal ENT inspection Neck: Positive: Supple, Nontender Cardiovascular: Positive: RRR Abdomen Description: Positive: Distended - and slightly tympanitic, Other: - tender diffusely, worse epigastric Bowel Sounds: Positive: Absent Musculoskeletal: Positive: Normal Neurological: Positive: Normal Psychiatric: Positive: Affect/Mood Appropriate Diagnostics - Vital Signs Vital Signs Temp Pulse Resp BP Pulse Ox 02/09/17 13:50 98.2 F 81 26 161/92 95 - Laboratory Lab Results: Lab Results 02/09/17 02/09/17 02/09/17 Range/Units 15:27 15:27 15:27 WBC 7.0 (3.5-10.8) 10^3/ul RBC 4.32 (4.0-5.4) 10^6/ul Hgb 12.1 L (14.0-18.0) g/dl Hct 37 L (42-52) % MCV 87 (80-94) fL MCH 28 (27-31) pg MCHC 32 (31-36) g/dl RDW 19 H (10.5-15) % Plt Count 152 (150-450) 10^3/ul MPV 9 (7.4-10.4) um3 Neut % (Auto) 87.4 H (38-83) % Lymph % (Auto) 6.5 L (25-47) % [place] % (Auto) 4.8 (1-9) % Eos % (Auto) 0.5 (0-6) % Baso % (Auto) 0.8 (0-2) % Absolute Neuts (auto) 6.1 (1.5-7.7) 10^3/ul Absolute Lymphs (auto) 0.5 L (1.0-4.8) 10^3/ul Absolute Monos (auto) 0.3 (0-0.8) 10^3/ul Absolute Eos (auto) 0 (0-0.6) 10^3/ul Absolute Basos (auto) 0.1 (0-0.2) 10^3/ul Absolute Nucleated RBC 0 10^3/ul Nucleated RBC % 0.1 INR (Anticoag Therapy) 0.92 (0.89-1.11) Sodium 139 (133-145) mmol/L Potassium 3.9 (3.5-5.0) mmol/L Chloride 98 L (101-111) mmol/L Carbon Dioxide 35 H (22-32) mmol/L Anion Gap 6 (2-11) mmol/L BUN 24 (6-24) mg/dL Creatinine 0.93 (0.67-1.17) mg/dL Est GFR ( Amer) 103.3 (>60) Est GFR (Non-Af Amer) 80.3 (>60) BUN/Creatinine Ratio 25.8 H (8-20) Glucose 123 H (70-100) mg/dL Calcium 9.6 (8.6-10.3) mg/dL Total Bilirubin 0.90 (0.2-1.0) mg/dL AST 17 (13-39) U/L ALT 14 (7-52) U/L Alkaline Phosphatase 56 (34-104) U/L C-Reactive Protein 3.57 (< 5.00) mg/L Total Protein 6.7 (6.4-8.9) g/dL Albumin 3.9 (3.2-5.2) g/dL Globulin 2.8 (2-4) g/dL Albumin/Globulin Ratio 1.4 (1-3) Result Diagrams: 02/09/17 15:27 02/09/17 15:27 Lab Statement: Any lab studies that have been ordered have been reviewed, and results considered in the medical decision making process. - Radiology Abdomen XR Radiology Interpretation Completed By: Radiologist - IMPRESSION: Radiographic findings described in the bilateral port can be compatible with constipation in the correct clinical setting. - EKG 13:50 Cardiac Rate: NL - at 78 bpm EKG Rhythm: Sinus Rhythm EKG Interpretation: Non-specific mild ST elevation in inferior leads EKG Comparison: Other - Slightly more pronounced than 01/24/2017 13:51 Cardiac Rate: NL - at 80 bpm EKG Rhythm: Sinus Rhythm EKG Interpretation: As above Re-Evaluation - Re-Evaluation First Eval Re-Evaluation Time: 16:20 Comment: Discussed lab and imaging results with patient and answered patient's questions. Patient requests a nebulizer as he usually has at home. Patient will then be discharged. GIGU Course/Dx - Course Course Of Treatment: Shortly after arrival, Mr. Reyes vomited voluminously and then began to feel better. He did still feel constipated and there was a great deal of stool on his plain film. He felt fine to go home and I gave him some laxative to try to prevent a second occurence. - Diagnoses Provider Diagnoses: Vomiting, Constipation Discharge - Discharge Plan Condition: Stable Disposition: HOME Patient Education Materials: Constipation (ED) Referrals: Nickie Agosto, ANGULAR JS DEVELOPER [Primary Care Provider] - 2 Days Additional Instructions: Please follow up with your PCP. The documentation as recorded by the Adrianne smith Erika accurately reflects the service I personally performed and the decisions made by me, Jin Zambrano MD.
== END 2017-02-09 16:53 | disposition home or self-care (01) ==
LOC: ED 13:46
DX: K59.00 Constipation, unspecified (principal); R11.2 Nausea with vomiting, unspecified; R10.9 Unspecified abdominal pain; Z87.891 Personal history of nicotine dependence
CPT/HCPCS: 36415; 74020; 80053; 85025; 85610; 86140; 93005; 96374; 99283; A9270-GY; J2405

== ENCOUNTER 2017-02-10 12:50 | Inpatient (IN) | payer MEDICARE ==
[2017-02-10] MEDS ORDERED: NS 0.9% 1000 ML* 2,000 ML IV ONE (14:32)
[2017-02-10] MEDS ORDERED: Morphine INJ* 4 MG/ML 1 ML SYRINGE IV ONE (14:32)
[2017-02-10] MEDS ORDERED: Ondansetron INJ* 2 MG/ML VIAL IV ONE (14:32)
[2017-02-10 15:36] LABS: Hematocrit 44 % (42-52); Hemoglobin 13.9 g/dl (14.0-18.0); Mean Corpuscular HGB Conc 32 g/dl (31-36); Mean Corpuscular Hemoglobin 28 pg (27-31); Mean Corpuscular Volume 87 fL (80-94); Mean Platelet Volume 10 um3 (7.4-10.4); Red Blood Count 5.02 10^6/ul (4.0-5.4); Red Cell Distribution Width 19 % (10.5-15); White Blood Count 8.1 10^3/ul (3.5-10.8)
[2017-02-10 15:48] LABS: ALT 16 U/L (7-52); AST 19 U/L (13-39); Albumin 4.7 g/dL (3.2-5.2); Alkaline Phosphatase 71 U/L (34-104); BUN/Creatinine Ratio 18.1 (8-20); Blood Urea Nitrogen 38 mg/dL (6-24); C Reactive Protein 5.12 mg/L (< 5.00); Calcium 10.6 mg/dL (8.6-10.3); Chloride 78 mmol/L (101-111); EGFR African American 40.4 (>60); EGFR Non-African American 31.4 (>60); Globulin 3.2 g/dL (2-4); Glucose 134 mg/dL (70-100); Lipase < 10 U/L (11.0-82.0); Potassium 3.3 mmol/L (3.5-5.0); Sodium 143 mmol/L (133-145); Total Protein 7.9 g/dL (6.4-8.9)
[2017-02-10] MEDS ORDERED: NS 0.9% 1000 ML* 1,000 ML IV ONE (16:03)
[2017-02-10 16:08] LABS: Anion Gap 18 mmol/L (2-11); CO2 Carbon Dioxide 47 mmol/L (22-32)
[2017-02-10] MEDS ORDERED: Iodixanol* (CONTRAST) 320 MG/ML 100 ML SDV IV ONE (16:21)
--- NOTE | 2017-02-10 16:56 | RAD ---
CLINICAL HISTORY: Abdominal pain, constipation, vomiting COMPARISON: August 31, 2016 TECHNIQUE: Multiple contiguous axial CT scans were obtained of the abdomen and pelvis after the administration of intravenous contrast. Coronal and sagittal multiplanar reformations are submitted for review. Oral contrast was administered. No FINDINGS: LUNG BASES: There are emphysematous changes of the lungs LIVER: The liver is diffusely low in attenuation compared to the spleen. There are no focal hepatic parenchymal masses. BILE DUCTS: There is no intrahepatic or extrahepatic biliary dilatation. GALLBLADDER: The gallbladder is normal, without pericholecystic inflammatory change. PANCREAS: The pancreas is normal, without mass or ductal dilatation. SPLEEN: Normal in size and appearance. UPPER GI TRACT: Evaluation of the gastrointestinal tract is limited by incomplete gastric distention. There is marked distention of the stomach and proximal duodenum to the level of the third stage of the duodenum SMALL BOWEL AND MESENTERY: The small bowel is normal in contour, course, and caliber. There is no obstruction or dilatation. COLON: The colon is normal in contour, course, caliber. There is no pericolonic inflammatory change. ADRENALS: Normal bilaterally. KIDNEYS: The kidneys are normal in shape, size, contour, and axis. There is no hydronephrosis or nephrolithiasis. BLADDER: The bladder is incompletely distended but is grossly normal. PELVIC ORGANS: The prostate is diffusely enlarged. The seminal vesicles are symmetric. AORTA: There is calcific atherosclerotic disease of the abdominal aorta and its branches, without aneurysmal dilatation IVC: Unremarkable LYMPH NODES: There is no lymphadenopathy by size criteria. ABDOMINAL WALL: There is no evidence for abdominal wall hernia. BONES AND SOFT TISSUES: Degenerative changes are noted of the spine OTHER: None IMPRESSION: THERE IS MARKED DISTENTION OF THE STOMACH, WITH DISTENTION OF THE PROXIMAL DUODENUM TO THE LEVEL OF THE THIRD STAGE OF THE DUODENUM SUGGESTIVE OF OBSTRUCTION OF THE UPPER GI TRACT AT THIS LEVEL.
[2017-02-10] MEDS ORDERED: Ondansetron INJ* 2 MG/ML VIAL IV PRN (16:59)
[2017-02-10] MEDS ORDERED: Morphine INJ* 4 MG/ML 1 ML SYRINGE IV PRN (17:01)
--- NOTE | 2017-02-10 20:05 | ED ---
Niles Carrasquillo Adam, scribed for Pinky Ochoa MD on 02/10/17 at 1406 . GI/ HPI - HPI Summary HPI Summary: Pt is a 71 year old male presenting with constipation and emesis. He has been constipated for the past 2 days and he began vomiting yesterday. He came to the ED yesterday and states that he was vomiting black emesis. He was given magnesium citrate which he drank yesterday but he continued to vomit black emesis throughout the night. Pt was a smoker for 49 years. He has a nebulizer for COPD. PMHx of GI bleed as well. No Hx of HTN, HLD, TN or CVA. FMHx of DM. - History of Current Complaint Chief Complaint: EDAbdPain Time Seen by Provider: 02/10/17 14:04 Stated Complaint: NO BOWEL MOVEMENT 2DAYS Hx Obtained From: Patient Onset/Duration: Started Days Ago, Atraumatic, Still Present Timing: Constant Severity: Moderate Current Severity: Moderate Pain Intensity: 4 Associated Signs and Symptoms: Positive: Vomiting, Constipation Aggravating Factor(s): Nothing Alleviating Factor(s): Nothing - Additional Pertinent History Primary Care Physician: [id number] - Allergy/Home Medications Allergies/Adverse Reactions: Allergies Allergy/AdvReac Type Severity Reaction Status Date / Time Penicillins [PCN] Allergy Mild Rash Verified 02/09/17 13:50 PMH/Surg Hx/FS Hx/Imm Hx Endocrine/Hematology History: Denies: Hx Anticoagulant Therapy, Hx Diabetes, Hx Thyroid Disease Cardiovascular History: Denies: Hx Hypertension, Hx Pacemaker/ICD Respiratory History: Reports: Hx Chronic Obstructive Pulmonary Disease (COPD), Other Respiratory Problems/Disorders - emphysema Denies: Hx Asthma GI History: Reports: Hx Gastroesophageal Reflux Disease History: Reports: Hx Benign Prostatic Hyperplasia Denies: Hx Renal Disease Musculoskeletal History: Denies: Hx Back Problems Sensory History: Reports: Hx Contacts or Glasses Opthamlomology History: Reports: Hx Contacts or Glasses Neurological History: Denies: Hx Dementia, Hx Seizures Psychiatric History: Denies: Hx Substance Abuse - Cancer History Cancer Type, Location and Year: bph - Surgical History Surgery Procedure, Year, and Place: HERNIA REPAIR 08/29/16. TESTICLE - Immunization History Date of Influenza Vaccine: up to date Infectious Disease History: No Infectious Disease History: Denies: Hx Hepatitis, Hx Human Immunodeficiency Virus (HIV), Traveled Outside the [place] in Last 30 Days - Family History Known Family History: Positive: Diabetes - sister, Other - CA Family History: FHx of CA (brothers) - Social History Occupation: Disabled Lives: Alone Alcohol Use: Rare Hx Substance Use: No Substance Use Type: Reports: None Hx Tobacco Use: Yes Smoking Status (MU): Former Smoker Review of Systems Negative: Fever Positive: Vomiting, Other - Constipation All Other Systems Reviewed And Are Negative: Yes Physical Exam Triage Information Reviewed: Yes Vital Signs On Initial Exam: Initial Vitals Temp Pulse Resp BP Pulse Ox 97.5 F 101 18 130/68 96 02/10/17 12:54 02/10/17 12:54 02/10/17 12:54 02/10/17 12:54 02/10/17 12:54 Vital Signs Reviewed: Yes Appearance: Positive: Well-Appearing, No Pain Distress Skin: Positive: Warm, Skin Color Reflects Adequate Perfusion, Dry Eyes: Positive: EOMI, [place] ENT: Positive: Pharynx normal, TMs normal Neck: Positive: Supple, Nontender Respiratory/Lung Sounds: Positive: Clear to Auscultation. Negative: Rales, Rhonchi, Wheezes Cardiovascular: Positive: RRR. Negative: Murmur, Rub Abdomen Description: Positive: Nontender, Soft. Negative: Distended, Guarding Bowel Sounds: Positive: Present Musculoskeletal: Positive: Strength/ROM Intact. Negative: Edema Left, Edema Right Neurological: Positive: Sensory/Motor Intact, Alert, Oriented to Person Place, Time, CN Intact II-III Psychiatric: Positive: Affect/Mood Appropriate Diagnostics - Vital Signs Vital Signs Temp Pulse Resp BP Pulse Ox 02/10/17 13:51 99.1 F 93 20 113/71 93 02/10/17 12:54 97.5 F 101 18 130/68 96 - Laboratory Lab Results: Lab Results 02/10/17 02/10/17 02/10/17 Range/Units 14:20 14:20 14:20 WBC 8.1 (3.5-10.8) 10^3/ul RBC 5.02 (4.0-5.4) 10^6/ul Hgb 13.9 L (14.0-18.0) g/dl Hct 44 (42-52) % MCV 87 (80-94) fL MCH 28 (27-31) pg MCHC 32 (31-36) g/dl RDW 19 H (10.5-15) % Plt Count 174 (150-450) 10^3/ul MPV 10 (7.4-10.4) um3 Neut % (Auto) 82.9 (38-83) % Lymph % (Auto) 8.5 L (25-47) % [place] % (Auto) 8.2 (1-9) % Eos % (Auto) 0.1 (0-6) % Baso % (Auto) 0.3 (0-2) % Absolute Neuts (auto) 6.7 (1.5-7.7) 10^3/ul Absolute Lymphs (auto) 0.7 L (1.0-4.8) 10^3/ul Absolute Monos (auto) 0.7 (0-0.8) 10^3/ul Absolute Eos (auto) 0 (0-0.6) 10^3/ul Absolute Basos (auto) 0 (0-0.2) 10^3/ul Absolute Nucleated RBC 0 10^3/ul Nucleated RBC % 0.1 Sodium 143 (133-145) mmol/L Potassium 3.3 L (3.5-5.0) mmol/L Chloride 78 L (101-111) mmol/L Carbon Dioxide 47 H* (22-32) mmol/L Anion Gap 18 H (2-11) mmol/L BUN 38 H (6-24) mg/dL Creatinine 2.10 H (0.67-1.17) mg/dL Est GFR ( Amer) 40.4 (>60) Est GFR (Non-Af Amer) 31.4 (>60) BUN/Creatinine Ratio 18.1 (8-20) Glucose 134 H (70-100) mg/dL Lactic Acid 3.2 H* (0.5-2.0) mmol/L Calcium 10.6 H (8.6-10.3) mg/dL Total Bilirubin 1.10 H (0.2-1.0) mg/dL AST 19 (13-39) U/L ALT 16 (7-52) U/L Alkaline Phosphatase 71 (34-104) U/L C-Reactive Protein 5.12 H (< 5.00) mg/L Total Protein 7.9 (6.4-8.9) g/dL Albumin 4.7 (3.2-5.2) g/dL Globulin 3.2 (2-4) g/dL Albumin/Globulin Ratio 1.5 (1-3) Lipase < 10 L (11.0-82.0) U/L Result Diagrams: 02/10/17 14:20 02/10/17 14:20 Lab Statement: Any lab studies that have been ordered have been reviewed, and results considered in the medical decision making process. - CT A/P CT Interpretation Completed By: Radiologist - IMPRESSION: THERE IS MARKED DISTENTION OF THE STOMACH, WITH DISTENTION OF THE PROXIMAL DUODENUM TO THE LEVEL OF THE THIRD STAGE OF THE DUODENUM SUGGESTIVE OF OBSTRUCTION OF THE UPPER GI TRACT AT THIS LEVEL. - Additional Comments Diagnostic Additional Comments: Carbon Dioxide - 47 Lactic Acid - 3.2 GIGU Course/Dx - Course Course Of Treatment: 71 yo male with upper gi bleed and likely obstruction and dehydration leading to renal failure. pt accepted by hospitalists for admission - Diagnoses Provider Diagnoses: ABDOMINAL PAIN, N/V, SARABJIT - Physician Notifications Discussed Care Of Patient With: Patient's daughter. Discussed lab results and informed her that we are awaiting CT results. Discharge - Discharge Plan Condition: Stable Disposition: ADMITTED TO [facility] The documentation as recorded by the Niles smith Adam accurately reflects the service I personally performed and the decisions made by me, Pinky Ochoa MD.
[2017-02-10] MEDS: Pantoprazole IV* 40 MG IV SCH (21:26)
[2017-02-10] MEDS: NS 0.9% 1000 ML* 1,000 ML IV SCH (23:50)
--- NOTE | 2017-02-11 01:23 | HP ---
ADDENDUM NOW INCLUDED ON THIS REPORT ADMISSION HISTORY AND PHYSICAL: DATE OF ADMISSION: PRIMARY CARE PROVIDER: Nickie Agosto NP ADMITTING PROVIDER: FREDDY Sterling SUPERVISING PHYSICIAN: Dr. Eun Haynes.* (DICTATED BY FREDDY STERLING) CHIEF COMPLAINT: Abdominal pain with vomiting. HISTORY OF PRESENT ILLNESS: This is a 71-year-old gentleman with a history of COPD, BPH, and prior history of bleeding duodenal ulcer, who presented to the emergency department for the second day in a row with complaints of abdominal pain. He was seen yesterday with these complaints and plain films indicated constipation. The patient was discharged to home with laxative. The patient states that he took the laxatives as directed and began vomiting last night. He reported some black- looking vomitus and associated abdominal pain. He denies any associated fevers or chills. The patient was admitted earlier this month with the COPD exacerbation, discharged on the . He states that he still has been having some difficulty breathing and occasional cough since discharge home. He believes that perhaps home oxygen is necessary for him. He states that he has been taking his inhaled medications as directed. Of note, the patient's daughter during his last admission reported that he had lost approximately 60 pounds over the last 6 months or so. He has a family history of both prostate cancer and colon cancer as well as significant smoking history personally, which raises the concern for malignancy associated with this weight loss. He again denies recent fevers or chills, denies night sweats. His weight loss has been unintentional. BMI is currently measuring 18.6. Recommendations at the time of discharge for followup with his primary care provider for prostate, lung, and colorectal cancer screenings. It does not appear that the patient was able to follow up approximately. PAST MEDICAL HISTORY: 1. COPD. 2. BPH. 3. History of bleeding duodenal ulcer. PAST SURGICAL HISTORY: 1. Inguinal hernia repair. 2. Tonsillectomy. 3. Adenoidectomy. HOME MEDICATIONS: 1. Nebulized albuterol 2.5 mg inhaled q.4 hours as needed for shortness of breath. 2. Finasteride 5 mg p.o. daily. 3. Omeprazole 20 mg p.o. b.i.d. 4. Spiriva 1 puff inhaled daily. 5. Flomax 0.4 mg p.o. daily. 6. Mucinex 600 mg p.o. twice daily. FAMILY HISTORY: The patient's brothers had history of prostate cancer and colon cancer. SOCIAL HISTORY: The patient lives at home with his grandson and his grandson's girlfriend. He has a [id number] smoking history, quit about 1 year ago. He denies any regular alcohol consumption. REVIEW OF SYSTEMS: As listed above in HPI, otherwise negative. PHYSICAL EXAMINATION GENERAL: This is a cachectic-appearing elderly gentleman, who is lying in hospital bed with frequent bouts of nausea and occasional emesis. VITAL SIGNS: Initial vitals, temperature 97.5 degrees Fahrenheit, pulse 101 beats per minute, respiratory rate 18 per minute, oxygen saturation 96% on room air, and blood pressure of 130/68 mmHg. HEENT: Head is normocephalic and atraumatic. Mucous membranes are dry. RESPIRATORY: Lungs are clear to auscultation without wheezes, crackles, or rhonchi. CARDIOVASCULAR: Heart has regular rate and rhythm without murmurs, rubs, or gallops. ABDOMEN: Distended with bowel sounds slightly hyperactive and diffusely tender to palpation. EXTREMITIES: No lower extremity edema. SKIN: No concerning rashes or lesions. DIAGNOSTIC STUDIES/LAB DATA: CBC is unremarkable with a white blood cell count of 8100, hemoglobin 13.9 g/dL, and platelet count 174,000. Comprehensive metabolic panel: Sodium of 143 mmol/L, potassium is 3.3, serum bicarb of 47, anion gap of 18, BUN 38, creatinine 2.1, random glucose of 134, lactic acid 3.2, calcium of 10.6. Total bilirubin 1.1, and remainder of transaminases within normal limits. CRP essentially normal at 5.1. Lipase normal at less than 10. Imaging: CT of the abdomen and pelvis demonstrates a significantly distended stomach and proximal small bowel indicative of small bowel obstruction. ASSESSMENT AND PLAN: This is a 71-year-old gentleman with history of chronic obstructive pulmonary disease and benign prostatic hyperplasia, who presents with a small bowel obstruction and significant weight loss over the last 6 months as well as multiple metabolic derangements secondary to gastrointestinal loss. 1. Small bowel obstruction. The patient is vomiting frequently in the emergency department. Order has been given to place an NG tube. P.r.n. antiemetics have been administered as well. Given his history of significant weight loss as well as his smoking history and family history of malignancy, this destruction is concerning for possibly being related to a malignancy. We will treat supportively at this time either during this hospital admission or at a later date, the patient requires upper and lower endoscopy. 2. Metabolic alkalosis secondary to severe gastrointestinal losses. Rehydrating with normal saline. At this time, we will repeat labs in the morning. 3. Acute kidney injury secondary to hypovolemia - treat with IV fluids. 4. Elevated lactic acid secondary to hypoperfusion related to hypovolemia. 5. Suspected gastrointestinal bleed - of note gastric occult testing was positive with some concern for black-appearing emesis. We will start on bolus IV Protonix. Hemoglobin is within normal limits at this time and no evidence of significant amount of bleeding. The patient is normotensive without significant tachycardia. 6. Code status. The patient is full code. 7. DVT prophylaxis. Place on SCDs. Chemical prophylaxis is contraindicated in the setting of possible gastrointestinal bleed. 8. Healthcare proxy is the patient's daughter, Jennifer Haile. DISPOSITION: The patient is being admitted to the inpatient service. Anticipate length of stay to be greater than 2 midnights. FREDDY STERLING ADDENDUM: SECONDARY ADMISSION DIAGNOSES: 1. Chronic obstructive pulmonary disease without evidence of acute exacerbation. We will continue inhaled home medications including Spiriva and p.r.n. albuterol. 2. Benign prostatic hyperplasia. Resume Flomax and finasteride when he is able to take oral medications again. FREDDY STERLING CC: Nickie Agosto, SEAN* [id number]/[facility] #: [id number]/[facility] #: [id number] JACQUELINE
--- NOTE | 2017-02-11 01:40 | HP ---
HISTORY AND PHYSICAL:* ADDENDUM: SECONDARY ADMISSION DIAGNOSES: 1. Chronic obstructive pulmonary disease without evidence of acute exacerbation. We will continue inhaled home medications including Spiriva and p.r.n. albuterol. 2. Benign prostatic hyperplasia. Resume Flomax and finasteride when he is able to take oral medications again. FREDDY STERLING [id number]/[facility] #: [id number] [facility]ITAL[facility]
[2017-02-11] MEDS: NS 0.9% 1000 ML* 1,000 ML IV SCH (06:00)
[2017-02-11 07:24] LABS: Hematocrit 34 % (42-52); Hemoglobin 11.1 g/dl (14.0-18.0); Mean Corpuscular HGB Conc 32 g/dl (31-36); Mean Corpuscular Hemoglobin 29 pg (27-31); Mean Corpuscular Volume 88 fL (80-94); Mean Platelet Volume 10 um3 (7.4-10.4); Red Blood Count 3.88 10^6/ul (4.0-5.4); Red Cell Distribution Width 19 % (10.5-15)
[2017-02-11 07:39] LABS: Albumin 3.3 g/dL (3.2-5.2); BUN/Creatinine Ratio 21.3 (8-20); EGFR African American 42.2 (>60); EGFR Non-African American 32.8 (>60); Globulin 2.3 g/dL (2-4); Potassium 2.8 mmol/L (3.5-5.0); Total Bilirubin 1.3 mg/dL (0.2-1.0); Total Protein 5.6 g/dL (6.4-8.9)
[2017-02-11] MEDS ORDERED: Spiriva Inhaler DEVICE* 1 EACH DEVICE ONE (08:00)
[2017-02-11] MEDS: Finasteride TAB* 5 MG PO SCH (08:07)
[2017-02-11] MEDS: Pantoprazole IV* 40 MG IV SCH ×2 (08:07→20:32)
[2017-02-11] MEDS: Tamsulosin CAP* 0.4 MG PO SCH (08:07)
[2017-02-11] MEDS: Tiotropium CAP.INH* CAP.INH/18 MCG INH SCH (08:07)
[2017-02-11] MEDS ORDERED: Magnesium Sulfate 2 GM IV* 2 GM/50 ML BAG IVPB ONE (09:00)
[2017-02-11 09:23] LABS: Magnesium 2.4 mg/dL (1.9-2.7)
[2017-02-11] MEDS: KCL 10 MEQ/50 ML IVPREMIX* 10 MEQ/50 ML BAG IV SCH ×3 (10:21→12:48)
[2017-02-11 11:20] LABS: Urine Bacteria Absent (Absent); Urine Bilirubin Negative (Negative); Urine Glucose Negative (Negative); Urine Nitrite Negative (Negative)
[2017-02-11] MEDS ORDERED: KCL 10 MEQ/50 ML IVPREMIX* 10 MEQ/50 ML BAG ONE (12:45)
--- NOTE | 2017-02-11 13:44 | RAD ---
INDICATION: Small bowel obstruction COMPARISON: Abdomen February 09, 2017 TECHNIQUE: A single view of the abdomen is submitted. FINDINGS: Bones: There are no acute bony findings. Soft tissues: The soft tissues appear normal. The psoas margins are sharp. Bowel gas pattern: Nondiagnostic. The stomach is decompressed with nasogastric tube. There is no small bowel dilatation. There is stool small amount of air within the colon. No small bowel Calcifications: There are no abnormal calcifications. Other: Residual contrast within the bladder and kidneys from earlier CT imaging IMPRESSION: THE STOMACH IS DECOMPRESSED WITH A. NASOGASTRIC TUBE. THERE ARE NO PLAIN RADIOGRAPHIC FINDINGS OF OBSTRUCTION ON THE SINGLE VIEW
[2017-02-11 14:56] LABS: Venous Bicarbonate HCO3 36.8 mmol/L (24-28)
[2017-02-11 15:12] LABS: BUN/Creatinine Ratio 23.6 (8-20); Calcium 8.1 mg/dL (8.6-10.3); EGFR African American 47.6 (>60); Potassium 3.6 mmol/L (3.5-5.0)
--- NOTE | 2017-02-11 16:12 | PN ---
Subjective Date of Service: 02/11/17 Interval History: This is a 71 yo gentleman with BPH and COPD who presented with SBO yesterday. NG tube was placed at admission. He had ~3.5L of gastric output overnight, but rate has slowed this am. Patient reports that he is hungry and would very much like his NG tube out. He has not passed gas or had a BM. He denies abd pain. He was trialed on clear liquids which was successful and NG tube is out at this time. This am, patient was unable to urinate, bladder scan demonstrated >700ml urine. Straight cath performed. Patient reports no prior h/o urinary obstruction but is treated for BPH. Finesteride and Flomax and have resumed. Objective Active Medications: Albuterol/Ipratropium (Duoneb (Albuterol 2.5 Mg/Ipratropium 0.5 Mg)) 1 neb INH [id number] AWAKE PRN PRN Reason: sob/wheexing Finasteride (Proscar Tab*) 5 mg PO DAILY [facility] Last Admin: 02/11/17 08:07 Dose: 5 mg Potassium Chloride 40 meq/ (Lactated Ringer's) 1,020 mls @ 150 mls/hr IVPB Q6H [facility] Last Admin: 02/11/17 09:12 Dose: 150 mls/hr Morphine Sulfate (Morphine Inj (Syringe)*) 4 mg IV Q4H PRN PRN Reason: PAIN Ondansetron HCl (Zofran Inj*) 4 mg IV Q4H PRN PRN Reason: VOMITING Pantoprazole Sodium (Protonix Iv*) 40 mg IV BID [facility] Last Admin: 02/11/17 08:07 Dose: 40 mg Tamsulosin HCl (Flomax Cap*) 0.4 mg PO DAILY [facility] Last Admin: 02/11/17 08:07 Dose: 0.4 mg Tiotropium Ethel (Spiriva Cap.Inh*) 1 cap INH DAILY [facility] Last Admin: 02/11/17 08:07 Dose: 1 cap Vital Signs: Temp Pulse Resp BP Pulse Ox 97.3 F 82 14 102/56 92 02/11/17 15:38 02/11/17 15:38 02/11/17 15:38 02/11/17 15:38 02/11/17 15:38 Appearance: Well appearing, in NAD Respiratory: Symmetrical Chest Expansion and Respiratory Effort, Clear to Auscultation Cardiovascular: NL Sounds; No Murmurs; No JVD, RRR Abdominal: NL Sounds; No Tenderness; No Distention, - - bowel sounds hypoactive Extremities: No Edema Skin: No Rash or Ulcers Neurological: Alert and Oriented x 3 Result Diagrams: 02/11/17 06:27 02/11/17 14:35 Additional Lab and Data: . Diagnostic Imaging: CT abd/pelvis 02/10 - SBO, distended stomach and proximal small bowel KUB 02/11 - decompressed stomach and small bowel Assess/Plan/Problems-Billing Assessment: This is a 71 yo male with COPD and BPH with recent significant weight loss who presents with SBO. - Patient Problems (1) SBO (small bowel obstruction) Comment: NG tube now removed, stomch appears decompressed on KUB Patient is tolerating clear liquids Will continue clear liquids until his bowel begin to move Plan to repeat KUB in am (2) Urinary obstruction Comment: Acute obstruction this am, requiring straight cath h/o BPH Finesteride and flomax resumed Monitor post void residual (3) Hypokalemia Comment: Replaced IV, resolved Secondary to GI loss (4) Metabolic alkalosis Comment: Improving Secondary to GI loss (5) COPD (chronic obstructive pulmonary disease) Comment: No associated exacerbation Cont home inhaled medications (6) BPH (benign prostatic hyperplasia) Comment: Continue flomax and finesteride (7) Weight loss Comment: Patient has lost ~60 lbs in the last 6 months He has a cachectic appearance Strong family h/o malignancy and personal h/o smoking Concern that his SBO may be related to occult malignancy, no obvious mass on abdominal CT Patient requires upper and lower endoscopy and chest CT for further evaluation Status and Disposition: Patient requires continues continued hospital stay. Anticipate dc in 1-2d. Inpatient status.
[2017-02-12 06:15] LABS: BUN/Creatinine Ratio 27.5 (8-20); Calcium 7.6 mg/dL (8.6-10.3); EGFR African American 63.4 (>60); EGFR Non-African American 49.3 (>60); Potassium 4.2 mmol/L (3.5-5.0)
--- NOTE | 2017-02-12 08:38 | RAD ---
Indication: Small bowel obstruction follow-up. Comparison: February 11, 2017 abdomen radiograph and February 10, 2017 CT abdomen. Technique: Supine abdomen. Report: No suggestion of persistent gastric distention. The nasogastric tube has been removed. No dilated small or large bowel loops evident. Moderate rectal distention with stool. No suspicious calcifications or mass effect. Elevated lung volumes with rarefaction of the pulmonary markings consistent with emphysema. IMPRESSION: No evidence for bowel obstruction.
[2017-02-12] MEDS ORDERED: Bisacodyl SUPP* 10 MG SUPP PR ONE (08:47)
[2017-02-12] MEDS: Tamsulosin CAP* 0.4 MG PO SCH (08:55)
[2017-02-12] MEDS: Pantoprazole IV* 40 MG IV SCH ×2 (08:55→22:08)
[2017-02-12] MEDS: Tiotropium CAP.INH* CAP.INH/18 MCG INH SCH (08:55)
[2017-02-12] MEDS: Finasteride TAB* 5 MG PO SCH (08:55)
[2017-02-12] MEDS: Albuterol/Ipratropium NEB.SOL* Albuterol 2.5 MG/Ipratropium 0.5 MG 3 ML INH PRN ×3 (10:31→17:40)
--- NOTE | 2017-02-12 11:43 | PN ---
Subjective Date of Service: 02/12/17 Interval History: Patient tolerated clear liquids well yesterday. Denies recurrence of abdominal pain nausea or vomiting. He had a large BM this am after a suppository. He denies any acute complaints Objective Active Medications: Albuterol/Ipratropium (Duoneb (Albuterol 2.5 Mg/Ipratropium 0.5 Mg)) 1 neb INH [id number] AWAKE PRN PRN Reason: sob/wheexing Last Admin: 02/12/17 10:31 Dose: 1 neb Finasteride (Proscar Tab*) 5 mg PO DAILY [facility] Last Admin: 02/12/17 08:55 Dose: 5 mg Morphine Sulfate (Morphine Inj (Syringe)*) 4 mg IV Q4H PRN PRN Reason: PAIN Ondansetron HCl (Zofran Inj*) 4 mg IV Q4H PRN PRN Reason: VOMITING Pantoprazole Sodium (Protonix Iv*) 40 mg IV BID [facility] Last Admin: 02/12/17 08:55 Dose: 40 mg Tamsulosin HCl (Flomax Cap*) 0.4 mg PO DAILY [facility] Last Admin: 02/12/17 08:55 Dose: 0.4 mg Tiotropium [place] (Spiriva Cap.Inh*) 1 cap INH DAILY [facility] Last Admin: 02/12/17 08:55 Dose: 1 cap Vital Signs: Temp Pulse Resp BP Pulse Ox 97.9 F 59 18 96/62 100 02/12/17 07:17 02/12/17 07:17 02/12/17 08:00 02/12/17 07:17 02/12/17 07:17 Oxygen Devices in Use Now: None Appearance: Well appearing, elderly gentleman in NAD Neck: NL Appearance and Movements; NL JVP Respiratory: Symmetrical Chest Expansion and Respiratory Effort, Clear to Auscultation Cardiovascular: NL Sounds; No Murmurs; No JVD, RRR Abdominal: NL Sounds; No Tenderness; No Distention Extremities: No Edema Skin: No Rash or Ulcers Neurological: Alert and Oriented x 3 Result Diagrams: 02/11/17 06:27 02/12/17 05:13 Additional Lab and Data: . Diagnostic Imaging: CT abd/pelvis 02/10 - SBO, distended stomach and proximal small bowel KUB 02/11 - decompressed stomach and small bowel KUB 02/12 - no distended bowel. Rectal distention with a large amount of stool Assess/Plan/Problems-Billing Assessment: This is a 71 yo male with COPD and BPH with recent significant weight loss who presents with SBO. - Patient Problems (1) SBO (small bowel obstruction) Comment: Repeat KUB remains WNL He had a large BM this am Will advance to a soft diet and re-evaulate in the afternoon (2) Urinary obstruction Comment: Resolved Acute obstruction yesterday am, requiring straight cath h/o BPH Finesteride and flomax resumed Now able to void freely (3) Hypokalemia Comment: Replaced IV, resolved Secondary to GI loss (4) Metabolic alkalosis Comment: Improving Secondary to GI loss (5) COPD (chronic obstructive pulmonary disease) Comment: No associated exacerbation Cont home inhaled medications (6) BPH (benign prostatic hyperplasia) Comment: Continue flomax and finesteride (7) Weight loss Comment: Patient has lost ~60 lbs in the last 6 months He has a cachectic appearance Strong family h/o malignancy and personal h/o smoking Concern that his SBO may be related to occult malignancy, no obvious mass on abdominal CT Patient requires upper and lower endoscopy and chest CT for further evaluation LM with his PCP Nickie Agosto NP to discuss concerns for acute malignancy Status and Disposition: Patient requires continues continued hospital stay. Anticipate dc tomorrow. Inpatient status.
[2017-02-12] MEDS: Mometasone/Formoter 200/5 MDI INH SCH (21:09)
[2017-02-12] MEDS ORDERED: Pantoprazole TAB (NF) 40 MG TAB PO ONE (22:00)
[2017-02-13 07:48] VITALS: BP 122/81
[2017-02-13 08:34] LABS: Hematocrit 30 % (42-52); Hemoglobin 10.2 g/dl (14.0-18.0); Mean Corpuscular HGB Conc 34 g/dl (31-36); Mean Corpuscular Hemoglobin 30 pg (27-31); Mean Corpuscular Volume 88 fL (80-94); Mean Platelet Volume 10 um3 (7.4-10.4); Red Blood Count 3.45 10^6/ul (4.0-5.4); Red Cell Distribution Width 19 % (10.5-15); White Blood Count 5.8 10^3/ul (3.5-10.8)
[2017-02-13] MEDS: Tiotropium CAP.INH* CAP.INH/18 MCG INH SCH (08:36)
[2017-02-13] MEDS: Mometasone/Formoter 200/5 MDI INH SCH (08:37)
[2017-02-13 08:48] LABS: BUN/Creatinine Ratio 24.3 (8-20); Calcium 7.8 mg/dL (8.6-10.3); EGFR African American 84.2 (>60); EGFR Non-African American 65.5 (>60); Potassium 3.7 mmol/L (3.5-5.0)
[2017-02-13] MEDS: Tamsulosin CAP* 0.4 MG PO SCH (09:29)
[2017-02-13] MEDS: Finasteride TAB* 5 MG PO SCH (09:29)
--- NOTE | 2017-02-13 09:46 | DS ---
DISCHARGE SUMMARY: * DATE OF ADMISSION: 02/10/17 ADDENDUM: Please add this to the original dictation. Included in primary discharge diagnoses should be acute kidney injury secondary to hypovolemia related to GI losses, which resolved with IV fluids hydration by the time of discharge. FREDDY STERLING [id number]/[facility] #: [id number] JACQUELINE
--- NOTE | 2017-02-13 10:03 | DS ---
DIAGNOSIS ADDENDUM NOW INCLUDED ON THIS REPORT DISCHARGE SUMMARY: DATE OF ADMISSION: 02/10/17 DATE OF DISCHARGE: 02/13/17 PRIMARY CARE PROVIDER: Nickie Agosto NP DISCHARGING PROVIDER: FREDDY Sterling SUPERVISING PHYSICIAN: Dr. Eun Haynes *(dictated by FREDDY Sterling) PRIMARY DISCHARGE DIAGNOSES: 1. Small-bowel obstruction - resolved. 2. GI bleed. 3. Metabolic alkalosis - resolved. 4. Hypokalemia - resolved. 5. Acute urinary obstruction - resolved. ADDENDUM: Please include in primary discharge diagnoses: 6. Acute kidney injury secondary to hypovolemia related to GI losses, which resolved with IV fluids hydration by the time of discharge. SECONDARY DISCHARGE DIAGNOSES: 1. COPD without acute exacerbation. 2. BPH. 3. Significant weight loss requiring further malignancy evaluation. HOME MEDICATIONS: 1. Nebulized albuterol q.4 hours as needed for shortness of breath. 2. Albuterol inhaler one puff inhaled q.4 hours as needed for shortness of breath. 3. Finasteride 5 mg p.o. daily. 4. Dulera two puffs inhaled twice daily. 5. Protonix 40 mg p.o. daily x2 weeks. 6. Spiriva one capsule inhaled daily. 7. Flomax 0.4 mg p.o. daily. 7. Mucinex 600 mg p.o. b.i.d. as needed. MEDICATION CHANGES: 1. Start Dulera. 2. Protonix x2 weeks. HOSPITAL IMAGIN. CT of the abdomen and pelvis on 02/10/17 shows marked distention of the stomach with distention of the proximal duodenum to the level of the third stage of the duodenum suggestive of obstruction of the upper GI tract at this level. 2. Abdominal x-ray on 02/11/17 shows stomach is decompressed with a nasogastric tube. No evidence of obstruction. 3. Abdominal x-ray on 02/12/17 shows no evidence of bowel obstruction. 4. Overnight pulse oximetry shows oxygen saturation dropped as low as 87% for just a few moments; the mean low was 89% and mean high 93.9%. HOSPITAL COURSE: This is a very pleasant 71-year-old gentleman with a history of COPD and BPH, as well as marked weight loss in the last 6 months, who presented to the emergency department on two occasions with complaints of abdominal pain. His initial evaluation in the emergency department revealed constipation, and the patient was discharged home with laxative. He returned the following day with intractable vomiting and CT scan demonstrated a small- bowel obstruction. The patient was subsequently admitted for management of his small-bowel obstruction. He required placement of an NG tube for gastric decompression. The NG tube was removed the day following admission, and the patient was able to tolerate clear liquids without abdominal pain, nausea, or vomiting. He had a bowel movement the following morning and was advanced to a soft diet, again without return of abdominal pain, nausea, or vomiting. Gastric sampling at the time of admission was positive for occult blood. The patient was started on IV Protonix. He had no evidence of severe bleeding. The patient also was significantly hypokalemic with evidence of a metabolic alkalosis secondary to GI losses, which were corrected with IV fluid replacement. The patient was recently hospitalized with a COPD exacerbation. At the time of this admission, he had no evidence of an acute exacerbation. He did have some complaints of shortness of breath during his hospital stay that would resolve with the use of a nebulizer. He felt that he would benefit from home oxygen. Oxygen saturation throughout his hospital stay remained in the high 90s. He was placed on overnight pulse oximetry to evaluate for need for nighttime oxygen. He did dip to 87% on one occasion, but this was for a brief period of time did not qualify for home oxygen therapy. The patient is currently on Spiriva and as-needed albuterol nebs at home. Recommend adding a long-acting beta agonist and inhaled corticosteroid to his home inhaler regimen. He was discharged with Dulera as described above. In regards to the patient's marked weight loss, he has a strong family history of malignancy and a personal history of smoking. CT scan of his abdomen and pelvis did not demonstrate an obvious mass, but his weight loss in the setting of recent small bowel obstruction is certainly concerning for an occult malignancy. Strongly recommend upper and lower endoscopy as well as a PSA and CT scan of the chest to evaluate for possibility of underlying malignancy. Left a message for the patient's primary care provider on two occasions to discuss these concerns, but, unfortunately, was not able to discuss this prior to his discharge. DISPOSITION: The patient is being discharged from the hospital to home where he lives with his grandson. Followup is recommended with his primary care provider regarding this hospital admission. Referral initiated to Gastroenterology for upper and lower endoscopy. As described above, the patient also requires PSA screening and a CT scan of the chest to evaluate for concern for occult malignancy. Recommend using Dulera as described above and a PPI for the next two weeks. FREDDY STERLING CC: Nickie Agosto NP; Dr. Eddie Howell* [id number]/CPS #: [id number] #: [id number] JACQUELINE
== END 2017-02-13 13:20 | disposition home or self-care (01) | DRG 389 ==
LOC: ED 12:50 → SSU 16:16
PROVIDERS: ADMIT Internal Medicine; ATTEND Hospitalist
PROC: 0D9670Z Drainage of Stomach with Drainage Device, Via Natural or Artificial Opening (ICD-10-PCS; principal; 2017-02-10)
DX: K56.60 Unspecified intestinal obstruction (principal); K92.2 Gastrointestinal hemorrhage, unspecified; N17.9 Acute kidney failure, unspecified; E87.3 Alkalosis; C17.9 Malignant neoplasm of small intestine, unspecified; J44.1 Chronic obstructive pulmonary disease with (acute) exacerbation; N13.8 Other obstructive and reflux uropathy; E86.1 Hypovolemia; Z68.1 Body mass index [BMI] 19.9 or less, adult; E87.6 Hypokalemia; N40.1 Benign prostatic hyperplasia with lower urinary tract symptoms; R63.4 Abnormal weight loss; Z83.3 Family history of diabetes mellitus; Z87.891 Personal history of nicotine dependence; Z80.42 Family history of malignant neoplasm of prostate; Z80.0 Family history of malignant neoplasm of digestive organs
CPT/HCPCS: 36415; 74000; 74177; 80048; 80053; 81003; 81015; 82271; 82803; 83605; 83690; 83735; 85025; 86140; 93005; 94640; 94760; 94762; A9270-GY; J2270; J2405; J3480; Q9967

== ENCOUNTER 2017-02-13 20:03 | Emergency (ER) | payer MEDICARE ==
[2017-02-13 21:39] LABS: Urine Bacteria Absent (Absent); Urine Bilirubin Negative (Negative); Urine Glucose Negative (Negative); Urine Nitrite Negative (Negative)
--- NOTE | 2017-02-13 22:12 | ED ---
Prasanna Carrasquillo Claudia, scribed for Pinky Ochoa MD on 02/13/17 at 2035 . Complex/Multi-Sys Presentation - HPI Summary HPI Summary: 71 year old male presents to the ED with dysuria and the inability to urinate. Pt was d/c from [facility] at 12:30pm today after SBO and Upper GI Bleed. His family noted that he was able to urinate on his own before he was d/c however pt mentioned to them at 7:30pm that he has been unable to urinate with some burning and discomfort. They then decided to bring him to the ED. Upon entering the ED pt became SOB and suffered a mechanical fall. He does note once in ED and in a room he feels comfortable and no longer SOB. It is noted that he does not used O2 at home. - History Of Current Complaint Chief Complaint: EDUrogenitalProblems Time Seen by Provider: 02/13/17 20:13 Hx Obtained From: Patient Onset/Duration: Sudden Onset Associated Signs And Symptoms: Positive: SOB, Dysuria, Other - unable to urinate - Allergies/Home Medications Allergies/Adverse Reactions: Allergies Allergy/AdvReac Type Severity Reaction Status Date / Time Penicillins [PCN] Allergy Mild Rash Verified 02/09/17 13:50 PMH/Surg Hx/FS Hx/Imm Hx Previously Healthy: Yes Endocrine/Hematology History: Denies: Hx Anticoagulant Therapy, Hx Diabetes, Hx Thyroid Disease Cardiovascular History: Denies: Hx Hypertension, Hx Pacemaker/ICD Respiratory History: Reports: Hx Chronic Obstructive Pulmonary Disease (COPD), Other Respiratory Problems/Disorders - emphysema Denies: Hx Asthma, Hx Chronic Bronchitis, Hx Pneumonia GI History: Reports: Hx Gastroesophageal Reflux Disease, Hx Ulcer - duoden, Other GI Disorders - recent GI bleed History: Reports: Hx Benign Prostatic Hyperplasia Denies: Hx Renal Disease Musculoskeletal History: Denies: Hx Back Problems Sensory History: Reports: Hx Contacts or Glasses Denies: Hx Hearing Aid Opthamlomology History: Reports: Hx Contacts or Glasses Neurological History: Denies: Hx Dementia, Hx Seizures Psychiatric History: Denies: Hx Substance Abuse - Cancer History Cancer Type, Location and Year: bph - Surgical History Surgery Procedure, Year, and Place: HERNIA REPAIR 08/29/16. TESTICLE Hx Anesthesia Reactions: No - Immunization History Date of Influenza Vaccine: up to date Infectious Disease History: Denies: Hx Hepatitis, Hx Human Immunodeficiency Virus (HIV), Traveled Outside the [place] in Last 30 Days - Family History Known Family History: Positive: Diabetes - sister, Other - CA Family History: FHx of CA (brothers) - Social History Occupation: Retired Lives: With Family Alcohol Use: Rare Hx Substance Use: No Substance Use Type: Reports: None Hx Tobacco Use: Yes Smoking Status (MU): Former Smoker - quit 2016 Review of Systems Constitutional: Negative Eyes: Negative ENT: Negative Cardiovascular: Negative Positive: Shortness Of Breath Gastrointestinal: Negative Positive: burning, other - unable to urinate Skin: Negative Neurological: Negative Psychological: Normal All Other Systems Reviewed And Are Negative: Yes Physical Exam Triage Information Reviewed: Yes Vital Signs On Initial Exam: Initial Vitals Temp Pulse Resp BP Pulse Ox 96.8 F 83 24 151/84 100 02/13/17 20:09 02/13/17 20:09 02/13/17 20:09 02/13/17 20:09 02/13/17 20:09 Vital Signs Reviewed: Yes Appearance: Positive: Well-Appearing, No Pain Distress Skin: Positive: Warm, Skin Color Reflects Adequate Perfusion, Dry Eyes: Positive: EOMI, [place] Neck: Positive: Supple, Nontender Respiratory/Lung Sounds: Positive: Clear to Auscultation, Breath Sounds Present. Negative: Rales, Rhonchi, Wheezes Cardiovascular: Positive: RRR. Negative: Murmur, Rub, Leg Edema Left, Leg Edema Right Abdomen Description: Positive: Nontender, Soft. Negative: Distended, Guarding Bowel Sounds: Positive: Present Musculoskeletal: Positive: Normal, Strength/ROM Intact Neurological: Positive: Sensory/Motor Intact, Alert, Oriented to Person Place, Time, CN Intact II-III Psychiatric: Positive: Affect/Mood Appropriate Diagnostics - Vital Signs Vital Signs Temp Pulse Resp BP Pulse Ox 02/13/17 20:09 96.8 F 83 24 151/84 100 - Laboratory Lab Results: Lab Results 02/13/17 Range/Units 20:45 Urine Color Yellow Urine Appearance Clear Urine pH 8.0 (5-9) Ur Specific [place] 1.016 (1.010-1.030) Urine Protein Negative (Negative) Urine Ketones Negative (Negative) Urine Blood 2+ H (Negative) Urine Nitrate Negative (Negative) Urine Bilirubin Negative (Negative) Urine Urobilinogen Negative (Negative) Ur Leukocyte Esterase Negative (Negative) Urine WBC (Auto) Trace(0-5/hpf) (Absent) Urine RBC (Auto) 3+(>10/hpf) H (Absent) Urine Bacteria Absent (Absent) Urine Glucose Negative (Negative) Lab Statement: Any lab studies that have been ordered have been reviewed, and results considered in the medical decision making process. - EKG 2102 Cardiac Rate: NL EKG Rhythm: Sinus Bradycardia - 58 beats/min Complex Multi-Symp Course/Dx Course Of Treatment: pt arrived apparently seeming sob but also with bladder obstruction, once johnson in pt felt much better able to ambulate without being sob. Ok to go home, ua negative except for blood will be cultured - Diagnoses Provider Diagnoses: Urinary obstruction Discharge - Discharge Plan Condition: Stable Disposition: HOME The documentation as recorded by the Prasanna smith Claudia accurately reflects the service I personally performed and the decisions made by me, Pinky Ochoa MD.
[2017-02-13 23:50] VITALS: BP 123/73
== END 2017-02-13 23:45 | disposition home or self-care (01) ==
LOC: ED 20:03
DX: N13.8 Other obstructive and reflux uropathy (principal); R06.02 Shortness of breath; R30.0 Dysuria; Z87.891 Personal history of nicotine dependence
CPT/HCPCS: 81003; 81015; 99282

== ENCOUNTER 2017-03-13 14:28 | Inpatient (IN) | payer MEDICARE ==
[2017-03-13] MEDS ORDERED: NS 0.9% 1000 ML* 2,000 ML IV ONE (15:00)
[2017-03-13] MEDS ORDERED: Morphine INJ* 4 MG/ML 1 ML SYRINGE IV ONE ×2 (15:00→20:26)
[2017-03-13] MEDS ORDERED: Ondansetron INJ* 2 MG/ML VIAL IV ONE (15:00)
[2017-03-13 16:56] LABS: Hematocrit 36 % (42-52); Hemoglobin 11.6 g/dl (14.0-18.0); Mean Corpuscular HGB Conc 33 g/dl (31-36); Mean Corpuscular Hemoglobin 30 pg (27-31); Mean Corpuscular Volume 92 fL (80-94); Mean Platelet Volume 9 um3 (7.4-10.4); Red Blood Count 3.89 10^6/ul (4.0-5.4); Red Cell Distribution Width 17 % (10.5-15); White Blood Count 7.8 10^3/ul (3.5-10.8)
[2017-03-13 17:10] LABS: Albumin 3.4 g/dL (3.2-5.2); BUN/Creatinine Ratio 23.3 (8-20); C Reactive Protein 4.22 mg/L (< 5.00); Calcium 8.2 mg/dL (8.6-10.3); EGFR African American 91.8 (>60); EGFR Non-African American 71.4 (>60); Globulin 2.6 g/dL (2-4); Magnesium 1.8 mg/dL (1.9-2.7); Potassium 4.8 mmol/L (3.5-5.0); Total Bilirubin 1.2 mg/dL (0.2-1.0)
[2017-03-13] MEDS ORDERED: Iohexol 350* (CONTRAST) 500 ML MDV IV ONE (17:22)
[2017-03-13 17:45] LABS: Troponin I 0.01 ng/mL (<0.04)
[2017-03-13 18:23] LABS: TSH (Thyroid Stimulating Horm) 0.72 mcIU/mL (0.34-5.60)
--- NOTE | 2017-03-13 19:20 | RAD ---
INDICATION: Abdominal pain, diarrhea, shortness of breath and cough. The patient is status post right inguinal hernia repair August 29, 2016. COMPARISON: CT abdomen pelvis February 10, 2017 TECHNIQUE: Multidetector CT images of the chest, abdomen and pelvis were obtained from the lung apices to the ischial tuberosities after the injection of 100 mL Omnipaque 350. The patient received oral contrast as well. CHEST: There are diffuse centrilobular emphysematous changes. At the right lower lobe there is a 5 mm pulmonary nodule (image 49) unchanged from the previous CT examination. More superiorly there is a 6 mm pulmonary nodule (image 43) unchanged from the previous CT examination. There is no mediastinal or hilar lymphadenopathy. The heart and major vascular structures are grossly normal in appearance. ABDOMEN \T\ PELVIS: The liver, spleen, pancreas and adrenal glands are grossly normal in appearance. The gallbladder is normal. The kidneys are normal in appearance without focal mass, calcification or signs of hydronephrosis. The oral contrast has progressed as far as the transverse colon. The small and large bowel are not distended. The normal appendix is identified in the right lower quadrant (image 48 of 82). There is no gross retroperitoneal or mesenteric lymphadenopathy. The prostate is heterogeneous and enlarged measuring 4.6 x 5.5 cm in the axial plane and 5.5 cm in the cephalocaudal projection. The prostate gland extends into the base of the urinary bladder. The coarsely calcified abdominal aorta does not exhibit any pathologic dilatation. Atherosclerosis is seen in the bilateral common femoral arteries and iliac arteries. There are multilevel degenerative changes of the thoracic and lumbar spine including loss of intervertebral disc height and marginal osteophyte formation. There are no sinister bone lesions. IMPRESSION: 1. No CT evidence of acute pulmonary embolism. 2. There are 2 pulmonary nodules in the right lower lobe measuring 5 and 6 cm in diameter. These can be followed up according to the Fleischner Society criteria. 3. The stomach appears to be mildly distended, but to a lesser degree than was described on the previous CT examination. Please correlate to signs and symptoms of gastric outlet obstruction and/or GI hypomotility. 4. Prostatomegaly. 5. There are additional chronic and degenerative changes described in the body of the report that are unlikely to be directly related to the patient's current presentation.
[2017-03-13] MEDS: NS 0.9% 1000 ML* 1,000 ML IV SCH ×2 (20:37→23:21)
[2017-03-13] MEDS ORDERED: guaiFENesin ER TAB 600 MG PO PRN (21:26)
[2017-03-13] MEDS ORDERED: Albuterol 2.5 MG/3 ML NEB.SOL* (0.083%) INH PRN (21:26)
[2017-03-13] MEDS ORDERED: Albuterol HFA INHALER* 8 gm MDI INH PRN (21:26)
--- NOTE | 2017-03-13 22:06 | ED ---
Christopher Carrasquillo Anna, scribed for Ray Lord MD on 03/13/17 at 1455 . Abdominal Pain/Male - HPI Summary HPI Summary: Patient is a 71 y/o male coming to [facility] presenting with the sudden onset of central abdominal pain that began yesterday morning. He describes the severity of the pain as 9/10. He had additionally had watery diarrhea. He has had a few episodes of diarrhea today, most recently 2-3 hours ago. He has had no appetite since yesterday morning and has not eaten since then. He denies melena, blood in stool, fever, or urinary symptoms. Denies recent Abx use. Since November, he has had unintentional weight loss. He has been taking his stool softener as normal. On 03/05/2017, he had a transurethral resection of prostate, removal of bladder calculi with Dr. White. His HR has been low since then. His Hx is significant for ulcers. His current pain is in the same spot but of worse severity than his ulcer pain. His Hx is significant for hernia surgery. - History of Current Complaint Chief Complaint: EDAbdPain Stated Complaint: ABD PAIN / DIARRHEA Time Seen by Provider: 03/13/17 14:46 Hx Obtained From: Patient, Family/Practice Or Student Teacher - Accompanied by family Onset/Duration: Still Present Timing: Lasting Days Severity Initially: Moderate Severity Currently: Moderate Pain Intensity: 9 Pain Scale Used: 0-10 Numeric - Allergies/Home Medications Allergies/Adverse Reactions: Allergies Allergy/AdvReac Type Severity Reaction Status Date / Time Penicillins [PCN] Allergy Mild Rash Verified 03/13/17 14:32 PMH/Surg Hx/FS Hx/Imm Hx Endocrine/Hematology History: Reports: Hx Anemia - r/t bleeding ulcer - on protonix Denies: Hx Anticoagulant Therapy, Hx Diabetes, Hx Thyroid Disease Cardiovascular History: Denies: Hx Hypertension, Hx Pacemaker/ICD Respiratory History: Reports: Hx Chronic Obstructive Pulmonary Disease (COPD), Other Respiratory Problems/Disorders - emphysema Denies: Hx Asthma, Hx Chronic Bronchitis, Hx Pneumonia GI History: Reports: Hx Gastroesophageal Reflux Disease, Hx Ulcer - duodenal ulcer - 1-2 months ago, Other GI Disorders - hx of SBO History: Reports: Hx Benign Prostatic Hyperplasia, Hx Kidney Stones - bladder calculi, Other Problems/Disorders - BPH - has a lucero Denies: Hx Renal Disease Musculoskeletal History: Reports: Hx Arthritis - right knee Denies: Hx Back Problems Sensory History: Reports: Hx Cataracts - slight cataract, Hx Contacts or Glasses Denies: Hx Hearing Aid Opthamlomology History: Reports: Hx Cataracts - slight cataract, Hx Contacts or Glasses Neurological History: Denies: Hx Dementia, Hx Seizures Psychiatric History: Denies: Hx Substance Abuse - Cancer History Cancer Type, Location and Year: bph - Surgical History Surgery Procedure, Year, and Place: right inguinal HERNIA REPAIR 08/29/16. tonsillectomy and adenoids as a child Hx Anesthesia Reactions: No - Immunization History Date of Influenza Vaccine: up to date Infectious Disease History: Denies: Hx Hepatitis, Hx Human Immunodeficiency Virus (HIV), Traveled Outside the US in Last 30 Days - Family History Known Family History: Positive: Diabetes - sister, Other - [place] Family History: FHx of [place] (brothers) - Social History Occupation: Retired Alcohol Use: Rare Hx Substance Use: No Substance Use Type: Reports: None Hx Tobacco Use: Yes Smoking Status (MU): Former Smoker Review of Systems Positive: Other - decreased appetite, unintentional weight loss. Negative: Fever Positive: Abdominal Pain, Diarrhea Negative: frequency All Other Systems Reviewed And Are Negative: Yes Physical Exam Triage Information Reviewed: Yes Vital Signs On Initial Exam: Initial Vitals Temp Pulse Resp BP Pulse Ox 98.5 F 52 16 143/73 95 03/13/17 14:32 03/13/17 14:32 03/13/17 14:32 03/13/17 14:32 03/13/17 14:32 Vital Signs Reviewed: Yes Appearance: Positive: Well-Appearing, Pain Distress - mild Skin: Positive: Warm, Skin Color Reflects Adequate Perfusion, Dry Head/Face: Positive: Normal Head/Face Inspection Eyes: Positive: EOMI, [place] ENT: Positive: Other - Dry mucous membranes Neck: Positive: Supple, Nontender Respiratory/Lung Sounds: Positive: Clear to Auscultation, Breath Sounds Present Cardiovascular: Positive: RRR Abdomen Description: Positive: Soft, Other: - Tender in periumbilical region Bowel Sounds: Positive: Hypoactive Musculoskeletal: Positive: Normal, Strength/ROM Intact Neurological: Positive: Normal, Sensory/Motor Intact, Alert, Oriented to Person Place, Time Psychiatric: Positive: Affect/Mood Appropriate Diagnostics - Vital Signs Vital Signs Temp Pulse Resp BP Pulse Ox 04/27/17 14:32 98.5 F 52 16 143/73 95 - Laboratory Lab Results: Lab Results 03/13/17 03/13/17 03/13/17 Range/Units 16:45 16:45 16:45 WBC 7.8 (3.5-10.8) 10^3/ul RBC 3.89 L (4.0-5.4) 10^6/ul Hgb 11.6 L (14.0-18.0) g/dl Hct 36 L (42-52) % MCV 92 (80-94) fL MCH 30 (27-31) pg MCHC 33 (31-36) g/dl RDW 17 H (10.5-15) % Plt Count 175 (150-450) 10^3/ul MPV 9 (7.4-10.4) um3 Neut % (Auto) 72.1 (38-83) % Lymph % (Auto) 17.7 L (25-47) % [place] % (Auto) 8.4 (1-9) % Eos % (Auto) 0.5 (0-6) % Baso % (Auto) 1.3 (0-2) % Absolute Neuts (auto) 5.6 (1.5-7.7) 10^3/ul Absolute Lymphs (auto) 1.4 (1.0-4.8) 10^3/ul Absolute Monos (auto) 0.7 (0-0.8) 10^3/ul Absolute Eos (auto) 0 (0-0.6) 10^3/ul Absolute Basos (auto) 0.1 (0-0.2) 10^3/ul Absolute Nucleated RBC 0 10^3/ul Nucleated RBC % 0 INR (Anticoag Therapy) 0.90 (0.89-1.11) APTT 31.2 (26.0-36.3) seconds Sodium 134 (133-145) mmol/L Potassium 4.8 (3.5-5.0) mmol/L Chloride 103 (101-111) mmol/L Carbon Dioxide 20 L (22-32) mmol/L Anion Gap 11 (2-11) mmol/L BUN 24 (6-24) mg/dL Creatinine 1.03 (0.67-1.17) mg/dL Est GFR ( Amer) 91.8 (>60) Est GFR (Non-Af Amer) 71.4 (>60) BUN/Creatinine Ratio 23.3 H (8-20) Glucose 73 (70-100) mg/dL Lactic Acid (0.5-2.0) mmol/L Calcium 8.2 L (8.6-10.3) mg/dL Magnesium 1.8 L (1.9-2.7) mg/dL Total Bilirubin 1.20 H (0.2-1.0) mg/dL AST 13 (13-39) U/L ALT 8 (7-52) U/L Alkaline Phosphatase 54 (34-104) U/L Troponin I 0.01 (<0.04) ng/mL C-Reactive Protein 4.22 (< 5.00) mg/L B-Natriuretic Peptide ( - 100) pg/mL Total Protein 6.0 L (6.4-8.9) g/dL Albumin 3.4 (3.2-5.2) g/dL Globulin 2.6 (2-4) g/dL Albumin/Globulin Ratio 1.3 (1-3) Lipase 27 (11.0-82.0) U/L TSH 0.72 (0.34-5.60) mcIU/mL 03/13/17 03/13/17 Range/Units 16:45 16:45 WBC (3.5-10.8) 10^3/ul RBC (4.0-5.4) 10^6/ul Hgb (14.0-18.0) g/dl Hct (42-52) % MCV (80-94) fL MCH (27-31) pg MCHC (31-36) g/dl RDW (10.5-15) % Plt Count (150-450) 10^3/ul MPV (7.4-10.4) um3 Neut % (Auto) (38-83) % Lymph % (Auto) (25-47) % [place] % (Auto) (1-9) % Eos % (Auto) (0-6) % Baso % (Auto) (0-2) % Absolute Neuts (auto) (1.5-7.7) 10^3/ul Absolute Lymphs (auto) (1.0-4.8) 10^3/ul Absolute Monos (auto) (0-0.8) 10^3/ul Absolute Eos (auto) (0-0.6) 10^3/ul Absolute Basos (auto) (0-0.2) 10^3/ul Absolute Nucleated RBC 10^3/ul Nucleated RBC % INR (Anticoag Therapy) (0.89-1.11) APTT (26.0-36.3) seconds Sodium (133-145) mmol/L Potassium (3.5-5.0) mmol/L Chloride (101-111) mmol/L Carbon Dioxide (22-32) mmol/L Anion Gap (2-11) mmol/L BUN (6-24) mg/dL Creatinine (0.67-1.17) mg/dL Est GFR ( Amer) (>60) Est GFR (Non-Af Amer) (>60) BUN/Creatinine Ratio (8-20) Glucose (70-100) mg/dL Lactic Acid 1.4 (0.5-2.0) mmol/L Calcium (8.6-10.3) mg/dL Magnesium (1.9-2.7) mg/dL Total Bilirubin (0.2-1.0) mg/dL AST (13-39) U/L ALT (7-52) U/L Alkaline Phosphatase (34-104) U/L Troponin I (<0.04) ng/mL C-Reactive Protein (< 5.00) mg/L B-Natriuretic Peptide 128 H ( - 100) pg/mL Total Protein (6.4-8.9) g/dL Albumin (3.2-5.2) g/dL Globulin (2-4) g/dL Albumin/Globulin Ratio (1-3) Lipase (11.0-82.0) U/L TSH (0.34-5.60) mcIU/mL Result Diagrams: 03/13/17 16:45 03/13/17 16:45 Lab Statement: Any lab studies that have been ordered have been reviewed, and results considered in the medical decision making process. - CT CTA Chest/Abd/Pel CT Interpretation: Positive (See Comments) CT Interpretation Completed By: Radiologist - IMPRESSION: 1. No CT evidence of acute pulmonary embolism. 2. There are 2 pulmonary nodules in the right lower lobe measuring 5 and 6 cm in diameter. These can be followed up according to the Fleischner Society criteria. 3. The stomach appears to be mildly distended, but to a lesser degree than was described on the previous CT examination. Please correlate to signs and symptoms of gastric outlet obstruction and/or GI hypomotility. 4. Prostatomegaly. 5. There are additional chronic and degenerative changes described in the body of the report that are unlikely to be directly related to the patient's current presentation. Re-Evaluation - Re-Evaluation First Eval Re-Evaluation Time: 20:17 Change: Worse Comment: He still has his pain. He now has suprapubic tenderness because he has not urinated today. Discussed plan for bladder scan and additional pain medications. Patient and family are agreeable with plan. Second Eval Re-Evaluation Time: 21:30 Comment: Discussed with patient and family possibilities to help the patient urinate. They voice understanding and agreement. Abdominal Pain Fem Course/Dx - Course Course Of Treatment: NO CRITICAL CARE TIME Assessment/Plan: PAIN CONTINUES IN ED. URINARY RETENTION DEVELOPED IN ED. DISCUSSED WITH DR WHITE. PATIENT AMBULATED AND WAS STILL UNABLE TO URINATE SO, LUCERO CATHETER WAS PLACED. ADMIT HOSPITALIST STABLE. - Diagnoses Provider Diagnoses: Abdominal pain, Urinary retention - Provider Notifications Discussed Care Of Patient With: Dr. Duron (hospitalist) at 2041. Agrees to accept patient for admission. Dr. White (urologist) at 2120. He recommended the patient walk around and proceed with treatment plan. Discharge - Discharge Plan Condition: Stable Disposition: ADMITTED TO [facility] documentation as recorded by the Christopher smith Anna accurately reflects the service I personally performed and the decisions made by me, Ray Lord MD.
[2017-03-13 22:50] LABS: Urine Bacteria Absent (Absent); Urine Bilirubin Negative (Negative); Urine Glucose Negative (Negative); Urine Nitrite Negative (Negative)
[2017-03-13] MEDS: Heparin VIAL(*) 5000 UNITS/ML VIAL (FIVE THOUSAND) SUBCUT SCH (23:22)
[2017-03-13] MEDS: Omeprazole CAP* 20 MG PO SCH (23:22)
--- NOTE | 2017-03-13 23:47 | HP ---
HOSPITAL MEDICINE HISTORY AND PHYSICAL: DATE OF ADMISSION: 03/13/17 PRIMARY CARE PHYSICIAN: Nickie Agosto NP ATTENDING PHYSICIAN: Dr. Justin Duron* (dictation provided by Yara Kennedy NP) CHIEF COMPLAINT: Abdominal pain. HISTORY OF PRESENT ILLNESS: Mr. Reyes is a 71-year-old male with 3 recent admissions to our hospital with a history of recent transurethral resection of the prostate on 02/18/17 as well as admission on 01/24/17 for COPD exacerbation and an admission on 02/10/17 for bowel obstruction. Mr. Reyes states that after his most recent admission for transurethral resection of the prostate, he has been doing well. He was able to have his catheter removed. The blood in the urine has resolved and he was peeing easily; however, yesterday at 11 o' clock, he had a sudden onset of diarrhea. He has said that he has diarrhea all during the day and all through the night, he was unable to sleep due to constant diarrhea. He also had abdominal pain, which was epigastric in location. He says the pain was a constant cramping. It was a 9/10. He denied any nausea or vomiting. He has had poor oral intake over the past 2 days because his appetite has been decreased due to the pain he was experiencing. He ultimately came to the emergency room for evaluation. He states that this was similar to the pain he experienced late in January when he had a bowel obstruction though that pain was much more severe and was associated with nausea and vomiting. He denies any fevers, chills, headache chest pain or shortness of breath. He states that his breathing has in fact been quite good and he has not been requiring use of his nebulizer. In the emergency room, Mr. Reyes began to complain of some lower abdominal discomfort and was having difficulty voiding. He had a bladder ultrasound at the bedside, which showed greater than 500 in the bladder. The patient was unable to void and was complaining of some discomfort at the tip of his penis. ED providers are now calling Dr. White to determine if a Donis catheter can be placed for him tonight at the bedside. Workup was essentially unrevealing. His lab values were unremarkable and it is unchanged from previous. He went on for a chest, abdomen, pelvis CTA, which showed concern for gastric distention, but it is actually much improved from his previous CT, which had been done on and showed profound gastric distention. PAST MEDICAL HISTORY: 1. Chronic obstructive pulmonary disease. 2. Benign prostatic hypertrophy, status post transurethral resection of the bladder tumor on 03/07/17. 3. History of duodenal ulcer found on endoscopy from 01/30/16, described as follows "very large deep ulcer." 4. Inguinal hernia repair. 5. History of tonsillectomy. 6. History of adenoidectomy. 7. History of recent small bowel obstruction. MEDICATIONS: 1. Guaifenesin p.r.n. 2. Albuterol nebulizer p.r.n. 3. Albuterol metered dose inhaler p.r.n. 4. Symbicort 160/4.5 two puffs inhaled b.i.d. ALLERGIES: To PENICILLIN. FAMILY HISTORY: The patient's mother and father , but he does not know the cause of their . He has 2 brothers who related to cancer. SOCIAL HISTORY: The patient was a 1 to 2 pack a day smoker for 49 years, but quit last year. He denies any alcohol use. He has been reported to have occasional marijuana use. He lives with his son and his daughter, Jennifer Haile, who is the healthcare proxy. REVIEW OF SYSTEMS: A 14-point review of systems was completed with Mr. Reyes and all those not mentioned above were negative. PHYSICAL EXAMINATION GENERAL: Mr. Reyes is sitting up in the bed. He is complaining of pain to the tip of his penis, but states his abdominal pain feels better and he is in no acute distress. VITAL SIGNS: Temperature 98.2, heart rate 55, respiratory rate 24, O2 saturation 96% on room air, blood pressure 134/62. LUNGS: Clear to auscultation bilaterally with no accessory muscle use and good aeration. HEART: S1, S2. No murmur, rub, gallop, and regular. ABDOMEN: Soft and nontender with bowel sounds positive x4. EXTREMITIES: No cyanosis or edema. NEURO: He is alert and oriented x3. He moves all extremities equally. There is no facial asymmetry or focal weakness. Extraocular movements are intact. SKIN: Intact. DIAGNOSTIC STUDIES/LAB DATA: WBC 7.8, hemoglobin 11.6, hematocrit 36, platelet count 175. INR 0.98. Sodium 134, potassium 4.8, chloride 103, sodium bicarbonate 20, BUN 24, creatinine 1.03, glucose 73, lactic acid 1.4. Troponin 0.01, BNP 128. Chest, abdomen, and pelvis CT is read as follows: "No CT evidence of acute pulmonary embolism. There are two pulmonary nodules in the right lower lobe measuring 5 and 6 cm in diameter. This can be followed up according to the Fleischner Society criteria. The stomach appears to be mildly distended but to a less degree than was described on the previous CT examination. Please correlate to signs and symptoms of gastric outlet obstruction and/or GI hypomotility, prostatomegaly. There are additional chronic and degenerative change as described in the body of the report. They are directly related to the patient's current presentation. ASSESSMENT AND PLAN: Mr. Reyes is a 71-year-old male who had a transurethral resection of the prostate on 03/07/17 and was admitted in late January for small bowel obstruction with gastric distention who presents today at the hospital with concern for abdominal pain with associated diarrhea, now with urinary retention as well. Our plans are for observation in the hospital for the following. 1. Abdominal pain. The patient states this pain is a little bit better at this point, but he has received narcotics in the emergency room. There is no clear cause of his discomfort, perhaps he has a gastroenteritis with associated irritation based on his symptoms of diarrhea at home. As there is no report of diarrhea here in the emergency room, stool culture can be sent if he does continue to have diarrhea. The patient also had noted a large duodenal ulcer in September 2016 and now has continued pain and history of recent obstruction. I question whether or not an endoscopy should be performed again to reevaluate this ulcer and or any associated stricture or scarring that may be causing obstruction. This can be reevaluated tomorrow based on the patient's clinical course and GI can be involved as needed. They were not called this evening. 2. Urinary retention. Dr. Lord is reaching out to Dr. White this evening to verify that it is okay for us to place a Donis catheter and that will be done in the emergency room if approved per Dr. White. Otherwise, recommendations will be followed per Dr. White. 3. Chronic obstructive pulmonary disease. No evidence of exacerbation. Continue home medications. 4. DVT prophylaxis with heparin subcu. 5. Disposition to medical floor. 6. Code status is full code. TIME SPENT: Approximately 60 minutes were spent on the admission of this patient, more than half the time was spent with patient at the bedside reviewing the events leading up to this hospitalization, performing the physical examination, and reviewing my plan of care. YARA KENNEDY NP CC: Nickie Agosto NP* [id number]/[facility] #: [id number] MTDD
[2017-03-13] MEDS: Mometasone/Formoter 100/5 MDI INH SCH (23:52)
[2017-03-14] MEDS: Dicyclomine CAP* 10 MG PO PRN ×3 (05:28→20:37)
[2017-03-14] MEDS: NS 0.9% 1000 ML* 1,000 ML IV SCH ×3 (05:29→20:02)
[2017-03-14] MEDS: Heparin VIAL(*) 5000 UNITS/ML VIAL (FIVE THOUSAND) SUBCUT SCH ×3 (05:30→22:42)
[2017-03-14 06:15] LABS: BUN/Creatinine Ratio 18.4 (8-20); Calcium 7.8 mg/dL (8.6-10.3); EGFR African American 97.2 (>60); EGFR Non-African American 75.6 (>60); Potassium 4.2 mmol/L (3.5-5.0)
[2017-03-14] MEDS: Mometasone/Formoter 100/5 MDI INH SCH ×2 (07:54→19:46)
[2017-03-14] MEDS: Omeprazole CAP* 20 MG PO SCH ×3 (08:44→20:37)
[2017-03-14] MEDS: Morphine INJ* 2 MG/ML 1 ML SYRINGE IV PRN ×4 (08:44→22:43)
--- NOTE | 2017-03-14 11:10 | PN ---
Subjective Date of Service: 03/14/17 Interval History: Mr. Reyes reports persistent abdominal pain to the epigastric and mid abdomen. He is unable to qualify or give much detail about the pain except that "it gets pretty bad." He has only gotten relief with morphine thus far. He cannot say with certainty that the pain gets better or worse with eating. He does report having diarrhea for the 1.5 days preceding admission but denies any diarrhea here. Denies any recent n/v. He does report "a sour taste" in his mouth and states that he feels like he has "stuff flowing up." His daughter, Jennifer, reports a previous hx of duodenal ulcer in 2016 and recent SBO. He is due for upper and lower GI in the next week or so to evaluate cause of the suspected obstruction. Mr. Reyes has also had a significant weight loss. He does not endorse any CP, SOB. He appears to be tolerating clear liquids, though it is unclear if they aggravate his stomach pain. Family History: Unchanged from Admission Social History: Unchanged from Admission Past Medical History: Unchanged from Admission Objective Active Medications: Albuterol (Ventolin 2.5 Mg/3 Ml Neb.Tammie*) 2.5 mg INH Q4H PRN PRN Reason: SOB/WHEEZING Albuterol (Ventolin Hfa Inhaler*) 1 puff INH Q4H PRN PRN Reason: SOB/WHEEZING Dicyclomine HCl (Bentyl Cap*) 10 mg PO TID PRN PRN Reason: abdominal pain/cramping Last Admin: 03/14/17 05:28 Dose: 10 mg Guaifenesin (Mucinex*) 600 mg PO BID PRN PRN Reason: COUGH Heparin Sodium (Porcine) (Heparin Vial(*)) 5,000 units SUBCUT Q8HR [facility] Last Admin: 03/14/17 05:30 Dose: 5,000 units Sodium Chloride (Ns 0.9% 1000 Ml*) 1,000 mls @ 150 mls/hr IV PER RATE [facility] Last Admin: 03/14/17 05:29 Dose: 150 mls/hr Mometasone Furoate/Formoterol Fumar (Dulera 100/5 Mdi*) 2 puff INH BID [facility] Last Admin: 03/14/17 07:54 Dose: 2 puff Morphine Sulfate (Morphine Inj (Syringe)*) 2 mg IV Q4H PRN PRN Reason: PAIN Last Admin: 03/14/17 08:44 Dose: 2 mg Omeprazole (Prilosec Cap*) 20 mg PO BID JOSEPH Last Admin: 03/14/17 08:44 Dose: 20 mg Vital Signs 03/13/17 03/13/17 03/13/17 22:05 22:57 23:05 Temperature 98.6 F 98.6 F Pulse Rate 77 61 61 Respiratory 14 14 Rate Blood Pressure 140/73 140/73 (mmHg) O2 Sat by Pulse 91 96 96 Oximetry 03/14/17 03/14/17 03/14/17 01:52 05:28 05:47 Temperature 98.4 F Pulse Rate 55 Respiratory 14 16 16 Rate Blood Pressure 126/61 (mmHg) O2 Sat by Pulse 98 Oximetry 03/14/17 03/14/17 07:56 08:44 Temperature Pulse Rate 57 Respiratory 14 12 Rate Blood Pressure (mmHg) O2 Sat by Pulse 98 Oximetry Oxygen Devices in Use Now: None Appearance: Older male, lying in bed, NAD Eyes: PERRLA Ears/Nose/Mouth/Throat: Clear Oropharnyx, Mucous Membranes Moist Neck: NL Appearance and Movements; NL JVP Respiratory: Symmetrical Chest Expansion and Respiratory Effort, Clear to Auscultation Cardiovascular: NL Sounds; No Murmurs; No JVD, RRR Abdominal: - - BS present, tenderness to epigastrum and periumbilical regions Extremities: No Edema Skin: No Rash or Ulcers Neurological: Alert and Oriented x 3 Lines/Tubes/Other Access: Clean, Dry and Intact Johnson, Clean, Dry and Intact Peripheral IV Nutrition: Taking PO's Result Diagrams: 03/13/17 16:45 03/14/17 05:38 Additional Lab and Data: Lab Results 03/13/17 03/13/17 03/13/17 Range/Units 16:45 16:45 16:45 WBC 7.8 (3.5-10.8) 10^3/ul RBC 3.89 L (4.0-5.4) 10^6/ul Hgb 11.6 L (14.0-18.0) g/dl Hct 36 L (42-52) % MCV 92 (80-94) fL MCH 30 (27-31) pg MCHC 33 (31-36) g/dl RDW 17 H (10.5-15) % Plt Count 175 (150-450) 10^3/ul MPV 9 (7.4-10.4) um3 Neut % (Auto) 72.1 (38-83) % Lymph % (Auto) 17.7 L (25-47) % [place] % (Auto) 8.4 (1-9) % Eos % (Auto) 0.5 (0-6) % Baso % (Auto) 1.3 (0-2) % Absolute Neuts (auto) 5.6 (1.5-7.7) 10^3/ul Absolute Lymphs (auto) 1.4 (1.0-4.8) 10^3/ul Absolute Monos (auto) 0.7 (0-0.8) 10^3/ul Absolute Eos (auto) 0 (0-0.6) 10^3/ul Absolute Basos (auto) 0.1 (0-0.2) 10^3/ul Absolute Nucleated RBC 0 10^3/ul Nucleated RBC % 0 INR (Anticoag Therapy) 0.90 (0.89-1.11) APTT 31.2 (26.0-36.3) seconds Sodium 134 (133-145) mmol/L Potassium 4.8 (3.5-5.0) mmol/L Chloride 103 (101-111) mmol/L Carbon Dioxide 20 L (22-32) mmol/L Anion Gap 11 (2-11) mmol/L BUN 24 (6-24) mg/dL Creatinine 1.03 (0.67-1.17) mg/dL Est GFR ( Amer) 91.8 (>60) Est GFR (Non-Af Amer) 71.4 (>60) BUN/Creatinine Ratio 23.3 H (8-20) Glucose 73 (70-100) mg/dL Lactic Acid (0.5-2.0) mmol/L Calcium 8.2 L (8.6-10.3) mg/dL Magnesium 1.8 L (1.9-2.7) mg/dL Total Bilirubin 1.20 H (0.2-1.0) mg/dL AST 13 (13-39) U/L ALT 8 (7-52) U/L Alkaline Phosphatase 54 (34-104) U/L Troponin I 0.01 (<0.04) ng/mL C-Reactive Protein 4.22 (< 5.00) mg/L B-Natriuretic Peptide ( - 100) pg/mL Total Protein 6.0 L (6.4-8.9) g/dL Albumin 3.4 (3.2-5.2) g/dL Globulin 2.6 (2-4) g/dL Albumin/Globulin Ratio 1.3 (1-3) Lipase 27 (11.0-82.0) U/L TSH 0.72 (0.34-5.60) mcIU/mL 03/13/17 03/13/17 Range/Units 16:45 16:45 WBC (3.5-10.8) 10^3/ul RBC (4.0-5.4) 10^6/ul Hgb (14.0-18.0) g/dl Hct (42-52) % MCV (80-94) fL MCH (27-31) pg MCHC (31-36) g/dl RDW (10.5-15) % Plt Count (150-450) 10^3/ul MPV (7.4-10.4) um3 Neut % (Auto) (38-83) % Lymph % (Auto) (25-47) % [place] % (Auto) (1-9) % Eos % (Auto) (0-6) % Baso % (Auto) (0-2) % Absolute Neuts (auto) (1.5-7.7) 10^3/ul Absolute Lymphs (auto) (1.0-4.8) 10^3/ul Absolute Monos (auto) (0-0.8) 10^3/ul Absolute Eos (auto) (0-0.6) 10^3/ul Absolute Basos (auto) (0-0.2) 10^3/ul Absolute Nucleated RBC 10^3/ul Nucleated RBC % INR (Anticoag Therapy) (0.89-1.11) APTT (26.0-36.3) seconds Sodium (133-145) mmol/L Potassium (3.5-5.0) mmol/L Chloride (101-111) mmol/L Carbon Dioxide (22-32) mmol/L Anion Gap (2-11) mmol/L BUN (6-24) mg/dL Creatinine (0.67-1.17) mg/dL Est GFR ( Amer) (>60) Est GFR (Non-Af Amer) (>60) BUN/Creatinine Ratio (8-20) Glucose (70-100) mg/dL Lactic Acid 1.4 (0.5-2.0) mmol/L Calcium (8.6-10.3) mg/dL Magnesium (1.9-2.7) mg/dL Total Bilirubin (0.2-1.0) mg/dL AST (13-39) U/L ALT (7-52) U/L Alkaline Phosphatase (34-104) U/L Troponin I (<0.04) ng/mL C-Reactive Protein (< 5.00) mg/L B-Natriuretic Peptide 128 H ( - 100) pg/mL Total Protein (6.4-8.9) g/dL Albumin (3.2-5.2) g/dL Globulin (2-4) g/dL Albumin/Globulin Ratio (1-3) Lipase (11.0-82.0) U/L TSH (0.34-5.60) mcIU/mL Diagnostic Imaging: CTA chest/abd/pelvis: 1. No CT evidence of acute pulmonary embolism. 2. There are 2 pulmonary nodules in the right lower lobe measuring 5 and 6 cm in diameter. These can be followed up according to the Fleischner Society criteria. 3. The stomach appears to be mildly distended, but to a lesser degree than was described on the previous CT examination. Please correlate to signs and symptoms of gastric outlet obstruction and/or GI hypomotility. 4. Prostatomegaly. 5. There are additional chronic and degenerative changes described in the body of the report that are unlikely to be directly related to the patient's current presentation. Assess/Plan/Problems-Billing Assessment: Mr. Reyes is a 71 yo male with a PMH of recent TURP, BPH, duodenal ulcer, COPD , recent small bowel obstruction, and inguinal hernia repair who was admitted with concern for abdominal pain and urinary retention. - Patient Problems (1) Abdominal pain Code(s): R10.9 - UNSPECIFIED ABDOMINAL PAIN Comment: Unclear etiology No further episodes of diarrhea, no n/v Patient a poor historian but with known hx of large duodenal ulcer Pain unrelieved by Bentyl, continue prn morphine Will start Carafate Appreciate GI input to see if any benefit would be gleaned from endoscopy this admission Patient due for outpatient upper and lower GI scope in the upcoming week, per the daughter. (2) Urinary retention Code(s): R33.9 - RETENTION OF URINE, UNSPECIFIED Comment: S/p TURP, patient was urinating well at home prior to abdominal pain onset Patient reports PO intake, may have been precipitated by dehydration Per Dr. White, will keep johnson in and attempt to d/c in AM Outpatient follow-up (3) COPD (chronic obstructive pulmonary disease) Code(s): J44.9 - CHRONIC OBSTRUCTIVE PULMONARY DISEASE, UNSPECIFIED Comment: No associated exacerbation Cont home inhaled medications (4) Hx of duodenal ulcer Code(s): Z87.19 - PERSONAL HISTORY OF OTHER DISEASES OF THE DIGESTIVE SYSTEM Comment: Noted in September 2016 Continue omeprazole BID Outpatient upper and lower GI scope planned (5) DVT prophylaxis Code(s): FJZ3114 - Comment: SQ heparin Status and Disposition: OBV admit. D/c to home when medically stable.
[2017-03-14] MEDS: Sucralfate TAB* 1 GM PO SCH ×2 (12:54→17:36)
--- NOTE | 2017-03-14 22:13 | CONS ---
GASTROENTEROLOGY CONSULT: DATE: 03/14/17 CONSULTING PRACTITIONER: Grecia Holder NP; Erin Agosto NP [facility] REASON FOR CONSULTATION: Epigastric pain in a man known to have an ulcer induced by naproxen in September 2016 when he presented with melena and hemoglobin of 6. HISTORY: This 71-year-old man had recent prostate surgery on 02/18/17 preceded by a COPD exacerbation admission on 01/24/17 and now is complaining of epigastric pain. He is a very vague historian but says pain came on a couple of days ago. He has not had any vomiting. He has had no obvious blood in his stool. He can tell me that he is not taking any Aleve and says he has been on Tylenol for various pains. However, an admission note from a month ago lists meloxicam and does not list omeprazole (also not listed this admission), which was given to him last fall to treat his ulcer. He recalls a stomach medicine but says the bottle ran out. The admission note from 02/12/17 when he had an apparent gastric outlet obstruction on CT does list omeprazole but then on 03/05/17, the omeprazole is not there and meloxicam is listed. He lives with his grandson and with his daughter in [place] and what they know about his medications is unknown. He follows up with the [facility]. PAST MEDICAL HISTORY: 1. COPD. 2. History of duodenal ulcer - September 2016, followup treatment unclear. 3. Status post recent TURP. 4. Right inguinal hernia repair at [facility]. MEDICATIONS: Current med reconciliation form lists: Albuterol, Budesonide inhaler, Mucinex. Since hospitalization, he has been on omeprazole 20 mg p.o. b.i.d. REVIEW OF SYSTEMS: No palpitations, chest pain, or syncope. He has had no complaints of tingling or weakness. There have been no falls or fractures. He has been losing some weight, details to be determined. The post op Donis catheter was discontinued today - there was an ER visit for inability to urinate after Donis stopped 02/13/17 the day discharged from the O PHYSICAL EXAM: He is an older man, in bed, complaining of epigastric pain, though in no other overt distress. He is afebrile, pulse 65, blood pressure 154 /90 when last checked. HEENT exam shows edentulous state and no icterus. He has no adenopathy. His lungs are clear and heart sounds are regular. The abdomen is flat with slightly reduced bowel sounds, though they are present. Rectal: Deferred. Extremities show no edema. DIAGNOSTIC STUDIES/LAB DATA: On 03/13/17, hemoglobin 11.6, hematocrit 36, MCV 92, white count 7.8. LFTs normal. Albumin 3.4, lipase 27. Creatinine 0.98, BUN 18. There is an entry for a lithium level August 2016. IMPRESSION: This 71-year-old man complains of epigastric pain suggestive of a peptic ulcer and indeed he has had one in the past. His treatment since discharge September 2016 is uncertain and there is certainly the probability that he has been taking NSAIDs at least sporadically. He will be placed on a Protonix drip and upper endoscopy will be performed. He had a GOO a month ago and that could lead to weight loss. Engaging his family and possibly visiting nurse services in his home county would appear to be essential in instituting and verifying a discharge plan. [id number]/[facility] #: [id number] JACQUELINE
[2017-03-15] MEDS ORDERED: Al Hydrox/Mg Hydrox/Simet LIQ* 30 ML UDC PO PRN (00:04)
[2017-03-15] MEDS ORDERED: Sucralfate TAB* 1 GM PO SCH (00:30)
[2017-03-15 00:44] LABS: Hematocrit 31 % (42-52); Hemoglobin 10.4 g/dl (14.0-18.0); Mean Corpuscular HGB Conc 33 g/dl (31-36); Mean Corpuscular Hemoglobin 30 pg (27-31); Mean Corpuscular Volume 91 fL (80-94); Mean Platelet Volume 9 um3 (7.4-10.4); Red Blood Count 3.41 10^6/ul (4.0-5.4); Red Cell Distribution Width 17 % (10.5-15); White Blood Count 8.1 10^3/ul (3.5-10.8)
[2017-03-15] MEDS ORDERED: Pantoprazole IV* 40 MG IV ONE (01:00)
[2017-03-15] MEDS: Pantoprazole IV* 80 MG in NS 0.9% 250 ML* 250 ML IVPB SCH ×3 (01:09→19:57)
[2017-03-15] MEDS: NS 0.9% 1000 ML* 1,000 ML IV SCH ×3 (02:41→19:57)
[2017-03-15 05:39] LABS: Hematocrit 30 % (42-52); Hemoglobin 9.7 g/dl (14.0-18.0); Mean Corpuscular HGB Conc 33 g/dl (31-36); Mean Corpuscular Hemoglobin 30 pg (27-31); Mean Corpuscular Volume 92 fL (80-94); Mean Platelet Volume 9 um3 (7.4-10.4); Red Blood Count 3.23 10^6/ul (4.0-5.4); Red Cell Distribution Width 17 % (10.5-15); White Blood Count 6.9 10^3/ul (3.5-10.8)
[2017-03-15 05:51] LABS: BUN/Creatinine Ratio 18.9 (8-20); Calcium 6.9 mg/dL (8.6-10.3); EGFR African American 134.5 (>60); EGFR Non-African American 104.6 (>60); Potassium 3.8 mmol/L (3.5-5.0)
[2017-03-15] MEDS: Heparin VIAL(*) 5000 UNITS/ML VIAL (FIVE THOUSAND) SUBCUT SCH ×3 (06:06→22:04)
[2017-03-15] MEDS: Morphine INJ* 2 MG/ML 1 ML SYRINGE IV PRN (08:01)
[2017-03-15] MEDS: Mometasone/Formoter 100/5 MDI INH SCH ×2 (08:18→20:28)
--- NOTE | 2017-03-15 09:13 | PN ---
Subjective Date of Service: 03/15/17 Interval History: Mr. Reyes reports feeling better this morning and states, "the medicine they' re giving me is helping." He denies CP, SOB, n/v/d. He is tolerating clear liquids. No other acute concerns at this time. Family History: Unchanged from Admission Social History: Unchanged from Admission Past Medical History: Unchanged from Admission Objective Active Medications: Al Hydrox/Mg Hydrox/Simethicone (Maalox Plus*) 30 ml PO Q4H PRN PRN Reason: INDIGESTION Albuterol (Ventolin 2.5 Mg/3 Ml Neb.Tammie*) 2.5 mg INH Q4H PRN PRN Reason: SOB/WHEEZING Albuterol (Ventolin Hfa Inhaler*) 1 puff INH Q4H PRN PRN Reason: SOB/WHEEZING Dicyclomine HCl (Bentyl Cap*) 10 mg PO TID PRN PRN Reason: abdominal pain/cramping Last Admin: 03/14/17 20:37 Dose: 10 mg Guaifenesin (Mucinex*) 600 mg PO BID PRN PRN Reason: COUGH Heparin Sodium (Porcine) (Heparin Vial(*)) 5,000 units SUBCUT Q8HR [facility] Last Admin: 03/15/17 06:06 Dose: 5,000 units Sodium Chloride (Ns 0.9% 1000 Ml*) 1,000 mls @ 150 mls/hr IV PER RATE [facility] Last Admin: 03/15/17 02:41 Dose: 150 mls/hr Pantoprazole Sodium 80 mg/ (Sodium Chloride) 250 mls @ 25 mls/hr IVPB Q10H [facility] PRN Reason: Protocol Last Admin: 03/15/17 01:09 Dose: 25 mls/hr Mometasone Furoate/Formoterol Fumar (Dulera 100/5 Mdi*) 2 puff INH BID [facility] Last Admin: 03/15/17 08:18 Dose: 2 puff Morphine Sulfate (Morphine Inj (Syringe)*) 2 mg IV Q4H PRN PRN Reason: PAIN Last Admin: 03/15/17 08:01 Dose: 2 mg Vital Signs 03/14/17 03/14/17 03/14/17 09:44 12:52 13:52 Temperature Pulse Rate Respiratory 14 14 14 Rate Blood Pressure (mmHg) O2 Sat by Pulse Oximetry 03/14/17 03/14/17 03/14/17 17:36 18:36 19:51 Temperature Pulse Rate 65 Respiratory 14 16 Rate Blood Pressure (mmHg) O2 Sat by Pulse 96 Oximetry 03/14/17 03/14/17 03/14/17 20:37 22:37 22:43 Temperature Pulse Rate Respiratory 16 16 16 Rate Blood Pressure (mmHg) O2 Sat by Pulse Oximetry 03/14/17 03/14/17 03/15/17 23:32 23:43 05:15 Temperature 98.4 F 98.2 F Pulse Rate 51 52 Respiratory 16 16 16 Rate Blood Pressure 126/61 128/66 (mmHg) O2 Sat by Pulse 96 97 Oximetry 03/15/17 03/15/17 08:01 08:20 Temperature Pulse Rate 66 Respiratory 18 16 Rate Blood Pressure (mmHg) O2 Sat by Pulse 94 Oximetry Oxygen Devices in Use Now: None Appearance: Older male patient, sitting up in bed, NAD Eyes: PERRLA Ears/Nose/Mouth/Throat: Mucous Membranes Moist Respiratory: Symmetrical Chest Expansion and Respiratory Effort, Clear to Auscultation Cardiovascular: NL Sounds; No Murmurs; No JVD, RRR Abdominal: - - BS present, diffuse tenderness with palpation Extremities: No Edema Skin: No Rash or Ulcers Neurological: Alert and Oriented x 3 Lines/Tubes/Other Access: Clean, Dry and Intact Peripheral IV Nutrition: Taking PO's Result Diagrams: 03/15/17 05:17 03/15/17 05:17 Additional Lab and Data: Lab Results 03/13/17 03/13/17 03/13/17 Range/Units 16:45 16:45 16:45 WBC 7.8 (3.5-10.8) 10^3/ul RBC 3.89 L (4.0-5.4) 10^6/ul Hgb 11.6 L (14.0-18.0) g/dl Hct 36 L (42-52) % MCV 92 (80-94) fL MCH 30 (27-31) pg MCHC 33 (31-36) g/dl RDW 17 H (10.5-15) % Plt Count 175 (150-450) 10^3/ul MPV 9 (7.4-10.4) um3 Neut % (Auto) 72.1 (38-83) % Lymph % (Auto) 17.7 L (25-47) % [place] % (Auto) 8.4 (1-9) % Eos % (Auto) 0.5 (0-6) % Baso % (Auto) 1.3 (0-2) % Absolute Neuts (auto) 5.6 (1.5-7.7) 10^3/ul Absolute Lymphs (auto) 1.4 (1.0-4.8) 10^3/ul Absolute Monos (auto) 0.7 (0-0.8) 10^3/ul Absolute Eos (auto) 0 (0-0.6) 10^3/ul Absolute Basos (auto) 0.1 (0-0.2) 10^3/ul Absolute Nucleated RBC 0 10^3/ul Nucleated RBC % 0 INR (Anticoag Therapy) 0.90 (0.89-1.11) APTT 31.2 (26.0-36.3) seconds Sodium 134 (133-145) mmol/L Potassium 4.8 (3.5-5.0) mmol/L Chloride 103 (101-111) mmol/L Carbon Dioxide 20 L (22-32) mmol/L Anion Gap 11 (2-11) mmol/L BUN 24 (6-24) mg/dL Creatinine 1.03 (0.67-1.17) mg/dL Est GFR ( Amer) 91.8 (>60) Est GFR (Non-Af Amer) 71.4 (>60) BUN/Creatinine Ratio 23.3 H (8-20) Glucose 73 (70-100) mg/dL Lactic Acid (0.5-2.0) mmol/L Calcium 8.2 L (8.6-10.3) mg/dL Magnesium 1.8 L (1.9-2.7) mg/dL Total Bilirubin 1.20 H (0.2-1.0) mg/dL AST 13 (13-39) U/L ALT 8 (7-52) U/L Alkaline Phosphatase 54 (34-104) U/L Troponin I 0.01 (<0.04) ng/mL C-Reactive Protein 4.22 (< 5.00) mg/L B-Natriuretic Peptide ( - 100) pg/mL Total Protein 6.0 L (6.4-8.9) g/dL Albumin 3.4 (3.2-5.2) g/dL Globulin 2.6 (2-4) g/dL Albumin/Globulin Ratio 1.3 (1-3) Lipase 27 (11.0-82.0) U/L TSH 0.72 (0.34-5.60) mcIU/mL 03/13/17 03/13/17 Range/Units 16:45 16:45 WBC (3.5-10.8) 10^3/ul RBC (4.0-5.4) 10^6/ul Hgb (14.0-18.0) g/dl Hct (42-52) % MCV (80-94) fL MCH (27-31) pg MCHC (31-36) g/dl RDW (10.5-15) % Plt Count (150-450) 10^3/ul MPV (7.4-10.4) um3 Neut % (Auto) (38-83) % Lymph % (Auto) (25-47) % [place] % (Auto) (1-9) % Eos % (Auto) (0-6) % Baso % (Auto) (0-2) % Absolute Neuts (auto) (1.5-7.7) 10^3/ul Absolute Lymphs (auto) (1.0-4.8) 10^3/ul Absolute Monos (auto) (0-0.8) 10^3/ul Absolute Eos (auto) (0-0.6) 10^3/ul Absolute Basos (auto) (0-0.2) 10^3/ul Absolute Nucleated RBC 10^3/ul Nucleated RBC % INR (Anticoag Therapy) (0.89-1.11) APTT (26.0-36.3) seconds Sodium (133-145) mmol/L Potassium (3.5-5.0) mmol/L Chloride (101-111) mmol/L Carbon Dioxide (22-32) mmol/L Anion Gap (2-11) mmol/L BUN (6-24) mg/dL Creatinine (0.67-1.17) mg/dL Est GFR ( Amer) (>60) Est GFR (Non-Af Amer) (>60) BUN/Creatinine Ratio (8-20) Glucose (70-100) mg/dL Lactic Acid 1.4 (0.5-2.0) mmol/L Calcium (8.6-10.3) mg/dL Magnesium (1.9-2.7) mg/dL Total Bilirubin (0.2-1.0) mg/dL AST (13-39) U/L ALT (7-52) U/L Alkaline Phosphatase (34-104) U/L Troponin I (<0.04) ng/mL C-Reactive Protein (< 5.00) mg/L B-Natriuretic Peptide 128 H ( - 100) pg/mL Total Protein (6.4-8.9) g/dL Albumin (3.2-5.2) g/dL Globulin (2-4) g/dL Albumin/Globulin Ratio (1-3) Lipase (11.0-82.0) U/L TSH (0.34-5.60) mcIU/mL Microbiology and Other Data: Microbiology 03/13/17 22:31 Urine Culture - Final Urine No Growth (<1,000 CFU/mL) Diagnostic Imaging: CTA chest/abd/pelvis: 1. No CT evidence of acute pulmonary embolism. 2. There are 2 pulmonary nodules in the right lower lobe measuring 5 and 6 cm in diameter. These can be followed up according to the Fleischner Society criteria. 3. The stomach appears to be mildly distended, but to a lesser degree than was described on the previous CT examination. Please correlate to signs and symptoms of gastric outlet obstruction and/or GI hypomotility. 4. Prostatomegaly. 5. There are additional chronic and degenerative changes described in the body of the report that are unlikely to be directly related to the patient's current presentation. Assess/Plan/Problems-Billing Assessment: Mr. Reyes is a 71 yo male with a PMH of recent TURP, BPH, duodenal ulcer, COPD , recent small bowel obstruction, and inguinal hernia repair who was admitted with concern for abdominal pain and urinary retention. - Patient Problems (1) Abdominal pain Code(s): R10.9 - UNSPECIFIED ABDOMINAL PAIN Comment: Suspect peptic ulcer disease, appreciate GI input Continue protonix gtt Plan for endoscopy today Patient a poor historian but with known hx of large duodenal ulcer Continue prn analgesia (2) Urinary retention Code(s): R33.9 - RETENTION OF URINE, UNSPECIFIED Comment: Resolved. Donis catheter remove and patient voiding independently. May have been precipitated by dehydration due to decreased PO intake Outpatient follow-up with Dr. White (3) COPD (chronic obstructive pulmonary disease) Code(s): J44.9 - CHRONIC OBSTRUCTIVE PULMONARY DISEASE, UNSPECIFIED Comment: No associated exacerbation Cont home inhaled medications (4) Hx of duodenal ulcer Code(s): Z87.19 - PERSONAL HISTORY OF OTHER DISEASES OF THE DIGESTIVE SYSTEM Comment: Noted in September 2016 Continue pantoprazole gtt Plan for endoscopy today (5) DVT prophylaxis Code(s): TEG5262 - Comment: SQ heparin Status and Disposition: Inpatient admit. D/c to home when medically stable.
[2017-03-15] MEDS ORDERED: Meperidine SYRINGE* 50 MG/ML ONE (09:49)
[2017-03-15] MEDS ORDERED: Midazolam* 1 MG/ML 10 ML VIAL (10 MG) ONE (09:49)
[2017-03-15] MEDS ORDERED: Pantoprazole IV* 40 MG ONE (12:25)
[2017-03-15] MEDS: Dicyclomine CAP* 10 MG PO PRN (19:57)
[2017-03-16] MEDS: NS 0.9% 1000 ML* 1,000 ML IV SCH ×3 (03:20→17:52)
--- NOTE | 2017-03-16 05:31 | PRO ---
DATE: 03/15/17 REFERRING PRACTITIONER: Nickie Agosto NP, [facility] PROCEDURE: Upper gastrointestinal endoscopy, CLOtest, biopsy from gastric body , and net retrieval of gastric bezoar. INDICATION: This 71-year-old man has had recurrent nausea and vomiting. He complains of upper abdominal pain. CT scan has shown gastric distention in January and then also just a few days ago though to a lesser degree. Reviewing his meds reveals that on the last 2 history and physicals in our system, he had no Omeprazole listed, but did once have meloxicam listed. He had a bleeding duodenal ulcer in September 2016. ENDOSCOPIST: Dr. Munoz MEDICATION: Midazolam 4, meperidine 25. FINDINGS: He is an older man in no apparent distress though appearing a little fragile and frail. He is in no respiratory distress. EGD: Larynx - edema around the base of the vocal cords and arytenoids. It is smooth and without erythema. There is no exudate or purulent secretions in the larynx. The findings are symmetric. Esophagus - easily entered. Mucosa is normal from 17 down to about 28 and then some erosions are seen and they increase and are maximally severe in the last 3 to 4 cm of esophagus. There is a mild laxity of the EG junction and a small hiatal hernia though no fundic prolapse. The patient had a very little gagging. There was no stricture. Stomach - some old blood and secretions are present and there are a couple of dozen small fragments of vegetable debris. The rugal pattern appears normal. The antrum appears normal. There was no erythema or ulcer in the stomach. Duodenum - the pylorus is wide open and static. Duodenal bulb is normal proximally, but then there is accumulation of vegetable fragments at the end of the duodenal bulb plugging a narrowed aperture going to the second portion of the duodenum. There are a couple of 1 cm ulcers with a yellow chronic base each having blood vessel stigmata. Though no protruding vessel and no active bleeding or clot. The vegetable fragments were pulled into the stomach with a biopsy forceps individually. At this point, the scope was nestled into a cleft at the apex of the duodenal bulb could identify the path of the distal duodenum, but could not actually hit through the stricture. It appeared to be 6.5 to 7 mm. The scope was then withdrawn back into the stomach and a retrieval ne t used to pull out of the body and discarded numerous large wedges of vegetables. It was noted that the patient is edentulous. IMPRESSION: 1. Duodenal ulcers - presumably from NSAIDs though a CLOtest was also taken Addendum: Clotest negative 2. Gastric outlet obstruction at the level of the duodenal bulb - a bezoar removed from the stomach and after a few days of IV PPI treatment, consideration could be given to endoscopic dilation or surgery. He can be started on clear liquids and possibly advance to full liquids or a pureed diet. It is noted that one of issues is his being edentulous. He has an upper plate, but does not wear it for meals characteristically. [id number]/[facility] #: [id number] [facility]
[2017-03-16] MEDS: Pantoprazole IV* 80 MG in NS 0.9% 250 ML* 250 ML IVPB SCH ×2 (06:04→17:51)
[2017-03-16] MEDS: Heparin VIAL(*) 5000 UNITS/ML VIAL (FIVE THOUSAND) SUBCUT SCH ×2 (06:04→14:39)
[2017-03-16 07:24] LABS: Hematocrit 28 % (42-52); Hemoglobin 9.4 g/dl (14.0-18.0); Mean Corpuscular HGB Conc 33 g/dl (31-36); Mean Corpuscular Hemoglobin 30 pg (27-31); Mean Corpuscular Volume 92 fL (80-94); Mean Platelet Volume 9 um3 (7.4-10.4); Red Blood Count 3.09 10^6/ul (4.0-5.4); Red Cell Distribution Width 17 % (10.5-15); White Blood Count 6.3 10^3/ul (3.5-10.8)
[2017-03-16] MEDS: Mometasone/Formoter 100/5 MDI INH SCH ×2 (07:57→20:11)
--- NOTE | 2017-03-16 08:40 | PN ---
Subjective Date of Service: 03/16/17 Interval History: Mr. Reyes admits to not getting out of bed much and asked for SCDs. Patient encouraged to ambulate and get OOB to chair in order to prevent deconditioning, which he agrees with. He reports improvement in his abdominal pain but states he did have a large dark BM this morning. He denies n/v. Denies fever/chills, CP , SOB. He is hopeful that surgery is an option so he can go back to eating regular food. Family History: Unchanged from Admission Social History: Unchanged from Admission Past Medical History: Unchanged from Admission Objective Active Medications: Al Hydrox/Mg Hydrox/Simethicone (Maalox Plus*) 30 ml PO Q4H PRN PRN Reason: INDIGESTION Albuterol (Ventolin 2.5 Mg/3 Ml Neb.Tammie*) 2.5 mg INH Q4H PRN PRN Reason: SOB/WHEEZING Albuterol (Ventolin Hfa Inhaler*) 1 puff INH Q4H PRN PRN Reason: SOB/WHEEZING Dicyclomine HCl (Bentyl Cap*) 10 mg PO TID PRN PRN Reason: abdominal pain/cramping Last Admin: 03/15/17 19:57 Dose: 10 mg Guaifenesin (Mucinex*) 600 mg PO BID PRN PRN Reason: COUGH Heparin Sodium (Porcine) (Heparin Vial(*)) 5,000 units SUBCUT Q8HR [facility] Last Admin: 03/16/17 06:04 Dose: 5,000 units Sodium Chloride (Ns 0.9% 1000 Ml*) 1,000 mls @ 150 mls/hr IV PER RATE [facility] Last Admin: 03/16/17 03:20 Dose: 150 mls/hr Pantoprazole Sodium 80 mg/ (Sodium Chloride) 250 mls @ 25 mls/hr IVPB Q10H [facility] PRN Reason: Protocol Last Admin: 03/16/17 06:04 Dose: 25 mls/hr Mometasone Furoate/Formoterol Fumar (Dulera 100/5 Mdi*) 2 puff INH BID [facility] Last Admin: 03/16/17 07:57 Dose: 2 puff Morphine Sulfate (Morphine Inj (Syringe)*) 2 mg IV Q4H PRN PRN Reason: PAIN Last Admin: 03/15/17 08:01 Dose: 2 mg Vital Signs 03/15/17 03/15/17 03/15/17 15:45 19:35 19:57 Temperature 97.6 F 98.0 F Pulse Rate 64 59 Respiratory 16 20 16 Rate Blood Pressure 126/81 137/72 (mmHg) O2 Sat by Pulse 99 99 Oximetry 03/15/17 03/15/17 03/15/17 20:00 20:42 21:57 Temperature Pulse Rate 70 Respiratory 18 18 Rate Blood Pressure (mmHg) O2 Sat by Pulse 98 Oximetry 03/16/17 03/16/17 03/16/17 00:13 03:24 07:59 Temperature 98.2 F 98.2 F Pulse Rate 54 52 68 Respiratory 16 16 16 Rate Blood Pressure 115/58 120/56 (mmHg) O2 Sat by Pulse 99 98 96 Oximetry Oxygen Devices in Use Now: None Appearance: Elderly male, sitting up in bed, NAD Eyes: PERRLA Ears/Nose/Mouth/Throat: Mucous Membranes Moist Respiratory: Symmetrical Chest Expansion and Respiratory Effort, Clear to Auscultation Cardiovascular: NL Sounds; No Murmurs; No JVD, RRR Abdominal: - - abdomen soft, tenderness through epigastrum and mid abdomen with palpation, no distention Extremities: No Edema Skin: No Rash or Ulcers Neurological: Alert and Oriented x 3 Lines/Tubes/Other Access: Clean, Dry and Intact Peripheral IV Result Diagrams: 03/16/17 06:19 03/15/17 05:17 Additional Lab and Data: Lab Results 03/13/17 03/13/17 03/13/17 Range/Units 16:45 16:45 16:45 WBC 7.8 (3.5-10.8) 10^3/ul RBC 3.89 L (4.0-5.4) 10^6/ul Hgb 11.6 L (14.0-18.0) g/dl Hct 36 L (42-52) % MCV 92 (80-94) fL MCH 30 (27-31) pg MCHC 33 (31-36) g/dl RDW 17 H (10.5-15) % Plt Count 175 (150-450) 10^3/ul MPV 9 (7.4-10.4) um3 Neut % (Auto) 72.1 (38-83) % Lymph % (Auto) 17.7 L (25-47) % [place] % (Auto) 8.4 (1-9) % Eos % (Auto) 0.5 (0-6) % Baso % (Auto) 1.3 (0-2) % Absolute Neuts (auto) 5.6 (1.5-7.7) 10^3/ul Absolute Lymphs (auto) 1.4 (1.0-4.8) 10^3/ul Absolute Monos (auto) 0.7 (0-0.8) 10^3/ul Absolute Eos (auto) 0 (0-0.6) 10^3/ul Absolute Basos (auto) 0.1 (0-0.2) 10^3/ul Absolute Nucleated RBC 0 10^3/ul Nucleated RBC % 0 INR (Anticoag Therapy) 0.90 (0.89-1.11) APTT 31.2 (26.0-36.3) seconds Sodium 134 (133-145) mmol/L Potassium 4.8 (3.5-5.0) mmol/L Chloride 103 (101-111) mmol/L Carbon Dioxide 20 L (22-32) mmol/L Anion Gap 11 (2-11) mmol/L BUN 24 (6-24) mg/dL Creatinine 1.03 (0.67-1.17) mg/dL Est GFR ( Amer) 91.8 (>60) Est GFR (Non-Af Amer) 71.4 (>60) BUN/Creatinine Ratio 23.3 H (8-20) Glucose 73 (70-100) mg/dL Lactic Acid (0.5-2.0) mmol/L Calcium 8.2 L (8.6-10.3) mg/dL Magnesium 1.8 L (1.9-2.7) mg/dL Total Bilirubin 1.20 H (0.2-1.0) mg/dL AST 13 (13-39) U/L ALT 8 (7-52) U/L Alkaline Phosphatase 54 (34-104) U/L Troponin I 0.01 (<0.04) ng/mL C-Reactive Protein 4.22 (< 5.00) mg/L B-Natriuretic Peptide ( - 100) pg/mL Total Protein 6.0 L (6.4-8.9) g/dL Albumin 3.4 (3.2-5.2) g/dL Globulin 2.6 (2-4) g/dL Albumin/Globulin Ratio 1.3 (1-3) Lipase 27 (11.0-82.0) U/L TSH 0.72 (0.34-5.60) mcIU/mL 03/13/17 03/13/17 Range/Units 16:45 16:45 WBC (3.5-10.8) 10^3/ul RBC (4.0-5.4) 10^6/ul Hgb (14.0-18.0) g/dl Hct (42-52) % MCV (80-94) fL MCH (27-31) pg MCHC (31-36) g/dl RDW (10.5-15) % Plt Count (150-450) 10^3/ul MPV (7.4-10.4) um3 Neut % (Auto) (38-83) % Lymph % (Auto) (25-47) % [place] % (Auto) (1-9) % Eos % (Auto) (0-6) % Baso % (Auto) (0-2) % Absolute Neuts (auto) (1.5-7.7) 10^3/ul Absolute Lymphs (auto) (1.0-4.8) 10^3/ul Absolute Monos (auto) (0-0.8) 10^3/ul Absolute Eos (auto) (0-0.6) 10^3/ul Absolute Basos (auto) (0-0.2) 10^3/ul Absolute Nucleated RBC 10^3/ul Nucleated RBC % INR (Anticoag Therapy) (0.89-1.11) APTT (26.0-36.3) seconds Sodium (133-145) mmol/L Potassium (3.5-5.0) mmol/L Chloride (101-111) mmol/L Carbon Dioxide (22-32) mmol/L Anion Gap (2-11) mmol/L BUN (6-24) mg/dL Creatinine (0.67-1.17) mg/dL Est GFR ( Amer) (>60) Est GFR (Non-Af Amer) (>60) BUN/Creatinine Ratio (8-20) Glucose (70-100) mg/dL Lactic Acid 1.4 (0.5-2.0) mmol/L Calcium (8.6-10.3) mg/dL Magnesium (1.9-2.7) mg/dL Total Bilirubin (0.2-1.0) mg/dL AST (13-39) U/L ALT (7-52) U/L Alkaline Phosphatase (34-104) U/L Troponin I (<0.04) ng/mL C-Reactive Protein (< 5.00) mg/L B-Natriuretic Peptide 128 H ( - 100) pg/mL Total Protein (6.4-8.9) g/dL Albumin (3.2-5.2) g/dL Globulin (2-4) g/dL Albumin/Globulin Ratio (1-3) Lipase (11.0-82.0) U/L TSH (0.34-5.60) mcIU/mL Microbiology and Other Data: Microbiology 03/13/17 22:31 Urine Culture - Final Urine No Growth (<1,000 CFU/mL) Diagnostic Imaging: CTA chest/abd/pelvis: 1. No CT evidence of acute pulmonary embolism. 2. There are 2 pulmonary nodules in the right lower lobe measuring 5 and 6 cm in diameter. These can be followed up according to the Fleischner Society criteria. 3. The stomach appears to be mildly distended, but to a lesser degree than was described on the previous CT examination. Please correlate to signs and symptoms of gastric outlet obstruction and/or GI hypomotility. 4. Prostatomegaly. 5. There are additional chronic and degenerative changes described in the body of the report that are unlikely to be directly related to the patient's current presentation. Assess/Plan/Problems-Billing Assessment: Mr. Reyes is a 71 yo male with a PMH of recent TURP, BPH, duodenal ulcer, COPD , recent small bowel obstruction, and inguinal hernia repair who was admitted with concern for abdominal pain and urinary retention. - Patient Problems (1) Chronic duodenal ulcer with gastric outlet obstruction Code(s): K26.7 - CHRONIC DUODENAL ULCER WITHOUT HEMORRHAGE OR PERFORATION Comment: Appreciate GI input Surgery consult requested by GI Continue clear liquid diet, pantoprazole gtt Continue supportive care (2) Urinary retention Code(s): R33.9 - RETENTION OF URINE, UNSPECIFIED Comment: Resolved. May have been precipitated by dehydration due to decreased PO intake Outpatient follow-up with Dr. White (3) COPD (chronic obstructive pulmonary disease) Code(s): J44.9 - CHRONIC OBSTRUCTIVE PULMONARY DISEASE, UNSPECIFIED Comment: No associated exacerbation Cont home inhaled medications (4) Hx of duodenal ulcer Code(s): Z87.19 - PERSONAL HISTORY OF OTHER DISEASES OF THE DIGESTIVE SYSTEM Comment: Noted in September 2016 Continue pantoprazole gtt (5) DVT prophylaxis Code(s): CVL9614 - Comment: SQ heparin Status and Disposition: Inpatient admit. Surgery consult pending to determine dispo of patient.
[2017-03-16] MEDS: Morphine INJ* 2 MG/ML 1 ML SYRINGE IV PRN (10:52)
[2017-03-16 12:06] LABS: Hematocrit 30 % (42-52); Hemoglobin 9.6 g/dl (14.0-18.0)
[2017-03-16] MEDS ORDERED: Pantoprazole IV* 40 MG ONE (17:38)
[2017-03-17] MEDS: Pantoprazole IV* 80 MG in NS 0.9% 250 ML* 250 ML IVPB SCH ×3 (02:51→23:35)
[2017-03-17] MEDS: NS 0.9% 1000 ML* 1,000 ML IV SCH ×3 (02:52→23:06)
--- NOTE | 2017-03-17 07:53 | PN ---
Subjective Date of Service: 03/17/17 Interval History: Mr. Reyes denies any specific complaint, including chest pain, SOB, abd pain, n /v. He denies any more "dark stools." He states his reflux is better. He is tolerating pureed foods but admits to not liking the texture. No acute concerns. Family History: Unchanged from Admission Social History: Unchanged from Admission Past Medical History: Unchanged from Admission Objective Active Medications: Al Hydrox/Mg Hydrox/Simethicone (Maalox Plus*) 30 ml PO Q4H PRN PRN Reason: INDIGESTION Albuterol (Ventolin 2.5 Mg/3 Ml Neb.Tammie*) 2.5 mg INH Q4H PRN PRN Reason: SOB/WHEEZING Albuterol (Ventolin Hfa Inhaler*) 1 puff INH Q4H PRN PRN Reason: SOB/WHEEZING Dicyclomine HCl (Bentyl Cap*) 10 mg PO TID PRN PRN Reason: abdominal pain/cramping Last Admin: 03/15/17 19:57 Dose: 10 mg Guaifenesin (Mucinex*) 600 mg PO BID PRN PRN Reason: COUGH Sodium Chloride (Ns 0.9% 1000 Ml*) 1,000 mls @ 150 mls/hr IV PER RATE [facility] Last Admin: 03/17/17 02:52 Dose: 150 mls/hr Pantoprazole Sodium 80 mg/ (Sodium Chloride) 250 mls @ 25 mls/hr IVPB Q10H JOSEPH PRN Reason: Protocol Last Admin: 03/17/17 02:51 Dose: 25 mls/hr Mometasone Furoate/Formoterol Fumar (Dulera 100/5 Mdi*) 2 puff INH BID [facility] Last Admin: 03/16/17 20:11 Dose: 2 puff Morphine Sulfate (Morphine Inj (Syringe)*) 2 mg IV Q4H PRN PRN Reason: PAIN Last Admin: 03/16/17 10:52 Dose: 2 mg Vital Signs 03/16/17 03/16/17 03/16/17 07:59 08:00 10:52 Temperature Pulse Rate 68 Respiratory 16 16 16 Rate Blood Pressure (mmHg) O2 Sat by Pulse 96 Oximetry 03/16/17 03/16/17 03/16/17 11:43 11:52 15:12 Temperature 98.3 F 97.8 F Pulse Rate 49 62 Respiratory 16 12 16 Rate Blood Pressure 135/66 122/64 (mmHg) O2 Sat by Pulse 99 100 Oximetry 03/16/17 03/16/17 03/16/17 20:00 20:14 23:13 Temperature 98.1 F Pulse Rate 71 70 Respiratory 16 16 Rate Blood Pressure 86/59 (mmHg) O2 Sat by Pulse 98 98 Oximetry 03/16/17 03/17/17 23:31 03:20 Temperature 98.0 F Pulse Rate 52 Respiratory 16 Rate Blood Pressure 112/58 116/61 (mmHg) O2 Sat by Pulse 98 Oximetry Oxygen Devices in Use Now: None Appearance: Well appearing, pleasant, elderly male, sitting up in bed, NAD Eyes: PERRLA Ears/Nose/Mouth/Throat: Mucous Membranes Moist Respiratory: Symmetrical Chest Expansion and Respiratory Effort, Clear to Auscultation Cardiovascular: NL Sounds; No Murmurs; No JVD, RRR Abdominal: - - tenderness with palpation to mid abdomen, abd soft, non-distended , BS x 4 Extremities: No Edema Neurological: Alert and Oriented x 3 Lines/Tubes/Other Access: Clean, Dry and Intact Peripheral IV Nutrition: Taking PO's Result Diagrams: 03/16/17 11:49 03/15/17 05:17 Additional Lab and Data: Lab Results 03/13/17 03/13/17 03/13/17 Range/Units 16:45 16:45 16:45 WBC 7.8 (3.5-10.8) 10^3/ul RBC 3.89 L (4.0-5.4) 10^6/ul Hgb 11.6 L (14.0-18.0) g/dl Hct 36 L (42-52) % MCV 92 (80-94) fL MCH 30 (27-31) pg MCHC 33 (31-36) g/dl RDW 17 H (10.5-15) % Plt Count 175 (150-450) 10^3/ul MPV 9 (7.4-10.4) um3 Neut % (Auto) 72.1 (38-83) % Lymph % (Auto) 17.7 L (25-47) % [place] % (Auto) 8.4 (1-9) % Eos % (Auto) 0.5 (0-6) % Baso % (Auto) 1.3 (0-2) % Absolute Neuts (auto) 5.6 (1.5-7.7) 10^3/ul Absolute Lymphs (auto) 1.4 (1.0-4.8) 10^3/ul Absolute Monos (auto) 0.7 (0-0.8) 10^3/ul Absolute Eos (auto) 0 (0-0.6) 10^3/ul Absolute Basos (auto) 0.1 (0-0.2) 10^3/ul Absolute Nucleated RBC 0 10^3/ul Nucleated RBC % 0 INR (Anticoag Therapy) 0.90 (0.89-1.11) APTT 31.2 (26.0-36.3) seconds Sodium 134 (133-145) mmol/L Potassium 4.8 (3.5-5.0) mmol/L Chloride 103 (101-111) mmol/L Carbon Dioxide 20 L (22-32) mmol/L Anion Gap 11 (2-11) mmol/L BUN 24 (6-24) mg/dL Creatinine 1.03 (0.67-1.17) mg/dL Est GFR ( Amer) 91.8 (>60) Est GFR (Non-Af Amer) 71.4 (>60) BUN/Creatinine Ratio 23.3 H (8-20) Glucose 73 (70-100) mg/dL Lactic Acid (0.5-2.0) mmol/L Calcium 8.2 L (8.6-10.3) mg/dL Magnesium 1.8 L (1.9-2.7) mg/dL Total Bilirubin 1.20 H (0.2-1.0) mg/dL AST 13 (13-39) U/L ALT 8 (7-52) U/L Alkaline Phosphatase 54 (34-104) U/L Troponin I 0.01 (<0.04) ng/mL C-Reactive Protein 4.22 (< 5.00) mg/L B-Natriuretic Peptide ( - 100) pg/mL Total Protein 6.0 L (6.4-8.9) g/dL Albumin 3.4 (3.2-5.2) g/dL Globulin 2.6 (2-4) g/dL Albumin/Globulin Ratio 1.3 (1-3) Lipase 27 (11.0-82.0) U/L TSH 0.72 (0.34-5.60) mcIU/mL 03/13/17 03/13/17 Range/Units 16:45 16:45 WBC (3.5-10.8) 10^3/ul RBC (4.0-5.4) 10^6/ul Hgb (14.0-18.0) g/dl Hct (42-52) % MCV (80-94) fL MCH (27-31) pg MCHC (31-36) g/dl RDW (10.5-15) % Plt Count (150-450) 10^3/ul MPV (7.4-10.4) um3 Neut % (Auto) (38-83) % Lymph % (Auto) (25-47) % [place]oul[place] % (Auto) (1-9) % Eos % (Auto) (0-6) % Baso % (Auto) (0-2) % Absolute Neuts (auto) (1.5-7.7) 10^3/ul Absolute Lymphs (auto) (1.0-4.8) 10^3/ul Absolute Monos (auto) (0-0.8) 10^3/ul Absolute Eos (auto) (0-0.6) 10^3/ul Absolute Basos (auto) (0-0.2) 10^3/ul Absolute Nucleated RBC 10^3/ul Nucleated RBC % INR (Anticoag Therapy) (0.89-1.11) APTT (26.0-36.3) seconds Sodium (133-145) mmol/L Potassium (3.5-5.0) mmol/L Chloride (101-111) mmol/L Carbon Dioxide (22-32) mmol/L Anion Gap (2-11) mmol/L BUN (6-24) mg/dL Creatinine (0.67-1.17) mg/dL Est GFR ( Amer) (>60) Est GFR (Non-Af Amer) (>60) BUN/Creatinine Ratio (8-20) Glucose (70-100) mg/dL Lactic Acid 1.4 (0.5-2.0) mmol/L Calcium (8.6-10.3) mg/dL Magnesium (1.9-2.7) mg/dL Total Bilirubin (0.2-1.0) mg/dL AST (13-39) U/L ALT (7-52) U/L Alkaline Phosphatase (34-104) U/L Troponin I (<0.04) ng/mL C-Reactive Protein (< 5.00) mg/L B-Natriuretic Peptide 128 H ( - 100) pg/mL Total Protein (6.4-8.9) g/dL Albumin (3.2-5.2) g/dL Globulin (2-4) g/dL Albumin/Globulin Ratio (1-3) Lipase (11.0-82.0) U/L TSH (0.34-5.60) mcIU/mL Microbiology and Other Data: Microbiology 03/13/17 22:31 Urine Culture - Final Urine No Growth (<1,000 CFU/mL) Diagnostic Imaging: CTA chest/abd/pelvis: 1. No CT evidence of acute pulmonary embolism. 2. There are 2 pulmonary nodules in the right lower lobe measuring 5 and 6 cm in diameter. These can be followed up according to the Fleischner Society criteria. 3. The stomach appears to be mildly distended, but to a lesser degree than was described on the previous CT examination. Please correlate to signs and symptoms of gastric outlet obstruction and/or GI hypomotility. 4. Prostatomegaly. 5. There are additional chronic and degenerative changes described in the body of the report that are unlikely to be directly related to the patient's current presentation. Assess/Plan/Problems-Billing Assessment: Mr. Reyes is a 71 yo male with a PMH of recent TURP, BPH, duodenal ulcer, COPD , recent small bowel obstruction, and inguinal hernia repair who was admitted with concern for abdominal pain and urinary retention. - Patient Problems (1) Chronic duodenal ulcer with gastric outlet obstruction Code(s): K26.7 - CHRONIC DUODENAL ULCER WITHOUT HEMORRHAGE OR PERFORATION Comment: Appreciate GI input Surgery consult pending Continue pureed diet, pantoprazole gtt Continue supportive care (2) Urinary retention Code(s): R33.9 - RETENTION OF URINE, UNSPECIFIED Comment: Resolved. May have been precipitated by dehydration due to decreased PO intake Outpatient follow-up with Dr. White (3) COPD (chronic obstructive pulmonary disease) Code(s): J44.9 - CHRONIC OBSTRUCTIVE PULMONARY DISEASE, UNSPECIFIED Comment: No associated exacerbation Cont home inhaled medications (4) Hx of duodenal ulcer Code(s): Z87.19 - PERSONAL HISTORY OF OTHER DISEASES OF THE DIGESTIVE SYSTEM Comment: Noted in September 2016 Continue pantoprazole gtt (5) DVT prophylaxis Code(s): KDQ3117 - Comment: SQ heparin Status and Disposition: Inpatient admit. Surgery consult pending to determine dispo of patient.
[2017-03-17] MEDS: Mometasone/Formoter 100/5 MDI INH SCH ×2 (08:00→19:47)
[2017-03-17] MEDS ORDERED: NS 0.9% 250 ML* 0 ML ONE (23:10)
--- NOTE | 2017-03-18 00:33 | CONS ---
SURGICAL CONSULT NOTE: DATE OF CONSULT: 03/17/17 ATTENDING SURGEON: Dr. Randolph Silveira. (DICTATED BY FREDDY PETE) CHIEF COMPLAINT: Gastric outlet obstruction. HISTORY OF PRESENT ILLNESS: This is a 71-year-old male who was admitted on with symptoms of upper abdominal pain accompanied by diarrhea. He states that the diarrhea was very dark. He also had concurrent issues with inability to urinate and is status post recent TURP on 03/07/17. His workup included a CT of the chest, abdomen, and pelvis, which showed some mild gastric dilatation , but less so versus study done in January (when he was admitted with a small bowel obstruction). He had had a prior EGD in September showing a large duodenal ulcer with significant upper GI bleed requiring transfusion at that time. He was recommended to continue PPI and avoid NSAIDs. There was some evidence that he was possibly receiving meloxicam and no recent mention of PPI in his medical record (the patient is a relatively poor historian). Most of the rest of his medical history is obtained from his current record. At the present time, the patient denies any significant abdominal pain. He is tolerating pureed diet without nausea or vomiting. He has had 2 loose bowel movements today which he states were light brown in color. He has been passing some flatus as well. PAST MEDICAL HISTORY: Includes COPD, BPH (status post TURP, 03/07/17), SBO with significant gastric dilatation, 02/10/17, with improvement with conservative treatment. He had also undergone an open right inguinal herniorrhaphy with mesh in August 2016 at the [facility] in [place]. He is normally followed for primary care at the [facility] in [place]. MEDICATIONS UPON ADMISSION: Include: 1. Symbicort 2 puffs b.i.d. 2. Albuterol nebulizer p.r.n. (was not requiring recently). 3. Guaifenesin p.r.n. (not requiring recently). 4. Tylenol p.r.n. DRUG ALLERGIES: Include PENICILLIN. I did not ask about reaction. FAMILY HISTORY: See admission history and physical. SOCIAL HISTORY: The patient is a prior smoker, who quit within the past year. He currently lives with his grandson in [place]. REVIEW OF SYSTEMS: General: As above per HPI. He does relate a 30 to 40- pound weight loss in recent months though states that he has had a good appetite other than when the diarrhea commenced. No additions other than above. HEENT: He is edentulous. He does use an upper denture at times, but not a lower denture because of poor fit and in the past had typically eaten without his dentures (see Dr. Munoz's EGD report). Cardiovascular: Heart regular rate and rhythm. No murmur appreciated. Distal pulses, posterior tibial and dorsalis pedis are palpable in the lower extremities. Respiratory: Distant breath sounds. No rales or wheezes at the present time. Abdomen: Well -healed right inguinal herniorrhaphy scar. Bowel sounds are present. Flat, nondistended, soft, nontender to palpation. No palpable masses or organomegaly. Genitalia: Not examined. Rectal: Not done. Back: No spinous process or CVA tenderness. Extremities: He does have trace to 1+ edema, most notable on the left distally. Pulses as noted. Distal extremities are warm. Neurological: Grossly intact. DIAGNOSTIC STUDIES/LAB DATA: Of note, his white blood cell count has been normal since admission. His hemoglobin drifted down from 11.6 to 9.6 and has been stable the last couple of days. Basic chemistries are normal as of 2 days ago. His CLOtest was negative at the time of his EGD. EGD from 03/15/17 showed some distal esophageal erosions, a small hiatal hernia, both gastric and duodenal food bezoars, which were removed mechanically. There were at least two 1-cm duodenal ulcers with stricture in the second portion of the duodenum with a lumen estimated at 6.[address] Munoz was unable to traverse the scope through the area, but he did suggest in his procedure report that after a few days of PPI and liquid to pureed diet, it was possible to consider balloon dilation of the duodenal stricture. IMPRESSION: Gastric outlet obstruction related to recurrent duodenal ulcers ( etiology not entirely clear). PLAN: As the patient is currently tolerating pureed diet, this could certainly be maintained for a period of time both as inpatient and outpatient. If he is able to undergo balloon dilation per Dr. Munoz, then there may be no indication for any surgical intervention. If, however, that is not possible or unsuccessful, the patient would be considered for surgical intervention, which could include, but would not be limited to vagotomy and possible gastrojejunal bypass. There are no immediate indications for surgical intervention. Therefore, the patient will be continue to be managed medically, and we will follow while in-house. We will also discuss options for balloon dilatation with Dr. Munoz. FREDDY RUSSELL CC: Dr. Prieto Munoz; Nickie Agosto NP, [facility], [place]* [id number]/[facility] #: [id number] [facility]
[2017-03-18] MEDS: NS 0.9% 1000 ML* 1,000 ML IV SCH (05:35)
--- NOTE | 2017-03-18 09:21 | PN ---
Progress Note - Progress Note SOAP: Subjective: Doing well, finished eating breakfast, asking for another bowel of oatmeal. Denies any pain, N/V or other complaints. Tolerating diet well. Moving his bowel. Objective: Awake and alert, comfortable and pleasant. VSS, afebrile Abdomen soft, NT, ND Bowelsounds normoactive Assessment: A 71 y/o gentleman with gastric outlet obstruction, likely secondary to hx of recurrent duodenal ulcers, doing well and tolerating soft diet. Plan: He appears to be doing well. No surgical interventions at this time. Will discuss with hospitalist and GI, possible arrangement for EGD with balloon dilatation inpatient vs outpatient. Patient can F/U with surgical services as needed.
[2017-03-18] MEDS: Mometasone/Formoter 100/5 MDI INH SCH (10:05)
--- NOTE | 2017-03-18 10:05 | PN ---
Subjective Date of Service: 03/18/17 Interval History: Patient reports feeling better. He is "somewhat disappointed" that he is unable to have surgery at this time but understands and agrees with the plan of care for outpatient GI follow-up. Denies CP, SOB, abd pain, n/v. No acute concerns. Discussed pureed food choices for home. Plan also discussed with patient's daughter Jennifer, via phone. Family History: Unchanged from Admission Social History: Unchanged from Admission Past Medical History: Unchanged from Admission Objective Active Medications: Al Hydrox/Mg Hydrox/Simethicone (Maalox Plus*) 30 ml PO Q4H PRN PRN Reason: INDIGESTION Albuterol (Ventolin 2.5 Mg/3 Ml Neb.Tammie*) 2.5 mg INH Q4H PRN PRN Reason: SOB/WHEEZING Albuterol (Ventolin Hfa Inhaler*) 1 puff INH Q4H PRN PRN Reason: SOB/WHEEZING Dicyclomine HCl (Bentyl Cap*) 10 mg PO TID PRN PRN Reason: abdominal pain/cramping Last Admin: 03/15/17 19:57 Dose: 10 mg Guaifenesin (Mucinex*) 600 mg PO BID PRN PRN Reason: COUGH Sodium Chloride (Ns 0.9% 1000 Ml*) 1,000 mls @ 150 mls/hr IV PER RATE [facility] Last Admin: 03/18/17 05:35 Dose: 150 mls/hr Pantoprazole Sodium 80 mg/ (Sodium Chloride) 250 mls @ 25 mls/hr IVPB Q10H JOSEPH PRN Reason: Protocol Last Admin: 03/17/17 23:35 Dose: 25 mls/hr Mometasone Furoate/Formoterol Fumar (Dulera 100/5 Mdi*) 2 puff INH BID [facility] Last Admin: 03/18/17 10:05 Dose: 2 puff Morphine Sulfate (Morphine Inj (Syringe)*) 2 mg IV Q4H PRN PRN Reason: PAIN Last Admin: 03/16/17 10:52 Dose: 2 mg Vital Signs 03/17/17 03/17/17 03/17/17 11:05 11:06 12:44 Temperature 97.8 F 97.8 F 97.9 F Pulse Rate 73 73 60 Respiratory 24 24 18 Rate Blood Pressure 124/66 124/66 125/66 (mmHg) O2 Sat by Pulse 99 99 99 Oximetry 03/17/17 03/17/17 03/17/17 15:34 15:44 19:51 Temperature 97.4 F 98.0 F Pulse Rate 66 69 66 Respiratory 16 Rate Blood Pressure 118/86 121/65 (mmHg) O2 Sat by Pulse 99 97 98 Oximetry 03/17/17 03/17/17 20:00 23:31 Temperature Pulse Rate 63 Respiratory 18 16 Rate Blood Pressure 129/59 (mmHg) O2 Sat by Pulse 98 Oximetry Oxygen Devices in Use Now: None Appearance: Elderly male, lying in bed, NAD Eyes: PERRLA Ears/Nose/Mouth/Throat: Mucous Membranes Moist Neck: NL Appearance and Movements; NL JVP Respiratory: Symmetrical Chest Expansion and Respiratory Effort, Clear to Auscultation Cardiovascular: NL Sounds; No Murmurs; No JVD, RRR Abdominal: NL Sounds; No Tenderness; No Distention Extremities: No Edema Skin: No Rash or Ulcers Neurological: Alert and Oriented x 3 Lines/Tubes/Other Access: Clean, Dry and Intact Peripheral IV Nutrition: Taking PO's Result Diagrams: 03/16/17 11:49 03/15/17 05:17 Additional Lab and Data: Lab Results 03/13/17 03/13/17 03/13/17 Range/Units 16:45 16:45 16:45 WBC 7.8 (3.5-10.8) 10^3/ul RBC 3.89 L (4.0-5.4) 10^6/ul Hgb 11.6 L (14.0-18.0) g/dl Hct 36 L (42-52) % MCV 92 (80-94) fL MCH 30 (27-31) pg MCHC 33 (31-36) g/dl RDW 17 H (10.5-15) % Plt Count 175 (150-450) 10^3/ul MPV 9 (7.4-10.4) um3 Neut % (Auto) 72.1 (38-83) % Lymph % (Auto) 17.7 L (25-47) % King % (Auto) 8.4 (1-9) % Eos % (Auto) 0.5 (0-6) % Baso % (Auto) 1.3 (0-2) % Absolute Neuts (auto) 5.6 (1.5-7.7) 10^3/ul Absolute Lymphs (auto) 1.4 (1.0-4.8) 10^3/ul Absolute Monos (auto) 0.7 (0-0.8) 10^3/ul Absolute Eos (auto) 0 (0-0.6) 10^3/ul Absolute Basos (auto) 0.1 (0-0.2) 10^3/ul Absolute Nucleated RBC 0 10^3/ul Nucleated RBC % 0 INR (Anticoag Therapy) 0.90 (0.89-1.11) APTT 31.2 (26.0-36.3) seconds Sodium 134 (133-145) mmol/L Potassium 4.8 (3.5-5.0) mmol/L Chloride 103 (101-111) mmol/L Carbon Dioxide 20 L (22-32) mmol/L Anion Gap 11 (2-11) mmol/L BUN 24 (6-24) mg/dL Creatinine 1.03 (0.67-1.17) mg/dL Est GFR ( Amer) 91.8 (>60) Est GFR (Non-Af Amer) 71.4 (>60) BUN/Creatinine Ratio 23.3 H (8-20) Glucose 73 (70-100) mg/dL Lactic Acid (0.5-2.0) mmol/L Calcium 8.2 L (8.6-10.3) mg/dL Magnesium 1.8 L (1.9-2.7) mg/dL Total Bilirubin 1.20 H (0.2-1.0) mg/dL AST 13 (13-39) U/L ALT 8 (7-52) U/L Alkaline Phosphatase 54 (34-104) U/L Troponin I 0.01 (<0.04) ng/mL C-Reactive Protein 4.22 (< 5.00) mg/L B-Natriuretic Peptide ( - 100) pg/mL Total Protein 6.0 L (6.4-8.9) g/dL Albumin 3.4 (3.2-5.2) g/dL Globulin 2.6 (2-4) g/dL Albumin/Globulin Ratio 1.3 (1-3) Lipase 27 (11.0-82.0) U/L TSH 0.72 (0.34-5.60) mcIU/mL 03/13/17 03/13/17 Range/Units 16:45 16:45 WBC (3.5-10.8) 10^3/ul RBC (4.0-5.4) 10^6/ul Hgb (14.0-18.0) g/dl Hct (42-52) % MCV (80-94) fL MCH (27-31) pg MCHC (31-36) g/dl RDW (10.5-15) % Plt Count (150-450) 10^3/ul MPV (7.4-10.4) um3 Neut % (Auto) (38-83) % Lymph % (Auto) (25-47) % King % (Auto) (1-9) % Eos % (Auto) (0-6) % Baso % (Auto) (0-2) % Absolute Neuts (auto) (1.5-7.7) 10^3/ul Absolute Lymphs (auto) (1.0-4.8) 10^3/ul Absolute Monos (auto) (0-0.8) 10^3/ul Absolute Eos (auto) (0-0.6) 10^3/ul Absolute Basos (auto) (0-0.2) 10^3/ul Absolute Nucleated RBC 10^3/ul Nucleated RBC % INR (Anticoag Therapy) (0.89-1.11) APTT (26.0-36.3) seconds Sodium (133-145) mmol/L Potassium (3.5-5.0) mmol/L Chloride (101-111) mmol/L Carbon Dioxide (22-32) mmol/L Anion Gap (2-11) mmol/L BUN (6-24) mg/dL Creatinine (0.67-1.17) mg/dL Est GFR ( Amer) (>60) Est GFR (Non-Af Amer) (>60) BUN/Creatinine Ratio (8-20) Glucose (70-100) mg/dL Lactic Acid 1.4 (0.5-2.0) mmol/L Calcium (8.6-10.3) mg/dL Magnesium (1.9-2.7) mg/dL Total Bilirubin (0.2-1.0) mg/dL AST (13-39) U/L ALT (7-52) U/L Alkaline Phosphatase (34-104) U/L Troponin I (<0.04) ng/mL C-Reactive Protein (< 5.00) mg/L B-Natriuretic Peptide 128 H ( - 100) pg/mL Total Protein (6.4-8.9) g/dL Albumin (3.2-5.2) g/dL Globulin (2-4) g/dL Albumin/Globulin Ratio (1-3) Lipase (11.0-82.0) U/L TSH (0.34-5.60) mcIU/mL Microbiology and Other Data: Microbiology 03/13/17 22:31 Urine Culture - Final Urine No Growth (<1,000 CFU/mL) Diagnostic Imaging: CTA chest/abd/pelvis: 1. No CT evidence of acute pulmonary embolism. 2. There are 2 pulmonary nodules in the right lower lobe measuring 5 and 6 cm in diameter. These can be followed up according to the Fleischner Society criteria. 3. The stomach appears to be mildly distended, but to a lesser degree than was described on the previous CT examination. Please correlate to signs and symptoms of gastric outlet obstruction and/or GI hypomotility. 4. Prostatomegaly. 5. There are additional chronic and degenerative changes described in the body of the report that are unlikely to be directly related to the patient's current presentation. Assess/Plan/Problems-Billing Assessment: Mr. Reyes is a 71 yo male with a PMH of recent TURP, BPH, duodenal ulcer, COPD , recent small bowel obstruction, and inguinal hernia repair who was admitted with concern for abdominal pain and urinary retention. - Patient Problems (1) Chronic duodenal ulcer with gastric outlet obstruction Code(s): K26.7 - CHRONIC DUODENAL ULCER WITHOUT HEMORRHAGE OR PERFORATION Comment: Appreciate surgical and GI input Plan for potential outpatient balloon dilatation Continue pureed diet. Dr. Munoz recommends Zegerid as outpatient. Will consult SW to determine if Zegerid is covered by insurance vs liquid PPI. (2) Urinary retention Code(s): R33.9 - RETENTION OF URINE, UNSPECIFIED Comment: Resolved. May have been precipitated by dehydration due to decreased PO intake Outpatient follow-up with Dr. White (3) COPD (chronic obstructive pulmonary disease) Code(s): J44.9 - CHRONIC OBSTRUCTIVE PULMONARY DISEASE, UNSPECIFIED Comment: No associated exacerbation Cont home inhaled medications (4) Hx of duodenal ulcer Code(s): Z87.19 - PERSONAL HISTORY OF OTHER DISEASES OF THE DIGESTIVE SYSTEM Comment: Noted in September 2016 Continue pantoprazole gtt (5) DVT prophylaxis Code(s): OLR5458 - Comment: SQ heparin Status and Disposition: Inpatient admit. D/c to home.
[2017-03-18 14:18] VITALS: BP 132/64
--- NOTE | 2017-03-19 04:26 | DS ---
MEDICINE DISCHARGE SUMMARY: DATE OF ADMISSION: 03/13/17 DATE OF DISCHARGE: 03/18/17 PROVIDER: Ekaterina Spence NP ATTENDING PHYSICIAN: Dr. Shital Serrano * (as dictated by Ekaterina Spence NP). CONSULTING PHYSICIANS: Dr. Prieto Munoz, Gastroenterology and Dr. Randolph Silveira , Surgery. PRIMARY CARE PHYSICIAN: Nickie Agosto NP PRIMARY DISCHARGE DIAGNOSES: 1. Gastric outlet obstruction. 2. Duodenal ulcer. 3. Duodenal stricture. 4. Urinary retention. SECONDARY DISCHARGE DIAGNOSES: 1. Chronic obstructive pulmonary disease. 2. Benign prostatic hypertrophy. 3. Recent transurethral resection of the bladder tumor on 03/07/17. 4. Inguinal hernia repair. 5. History of small bowel obstruction. MEDICATIONS AT DISCHARGE: 1. Guaifenesin ER 600 mg b.i.d. p.r.n. 2. Symbicort 160/4.5 two puffs inhaled b.i.d. 3. Albuterol inhaler 1 puff inhaled q.4 hours p.r.n. 4. Albuterol nebulizer 2.5 mg inhaled q.4 hours p.r.n. 5. Zegerid 20 mg formulation 1 capsule p.o. b.i.d. This is a new medication recommended by Dr. Munoz. HOSPITAL COURSE OF STAY: For full details, please refer to the H and P provided by Yara Kennedy on 03/13/17. In summary, Mr. Reyes is a 71-year-old male, who has recently been admitted multiple times for various reasons, but came in this admission with concern for abdominal pain and urinary retention. The patient was noted to have greater than 500 mL of urine in the bladder during his initial assessment and a Donis catheter was placed. The patient recently had a Donis catheter removed by Urology following his transurethral resection of the prostate on 02/18/17. Upon further investigation, it appears that the patient had decreased p.o. intake secondary to abdominal pain and a few episodes of diarrhea. It was felt that the patient's urinary retention was likely secondary to dehydration. The catheter was able to be removed after 36 hours, and the patient was able to void appropriately. The patient's abdominal pain did not resolve and appeared to have worsened overnight. In light of his history of duodenal ulcers as well as his presentation, GI was consulted. The patient underwent an endoscopy on . The patient was noted to have duodenal ulcers, presumably from NSAIDs, gastric outlet obstruction at the level of the duodenal bulb. A bezoar was removed from the stomach during the endoscopy. The patient was maintained on IV Protonix per GI's recommendation. Because there was concern for the patient' s obstruction and inability to pass solid foods, the patient was transitioned to at first clear liquids and then pureed foods with good tolerance. We appreciate this consult from Surgery, who recommended that GI interventions would be appropriate at this time including a balloon dilatation. If this is unsuccessful, they are willing to follow the patient in the future for potential surgical correction. The patient did discuss balloon dilatation with Dr. Munoz, who is willing to do this in the future. However, he elected to continue the patient on PPI treatment over the next few weeks, given his large duodenal ulcer. The patient has continued to tolerate diet and has done well with IV Protonix. Per Dr. Munoz, we have prescribed Zegerid for the patient to use at home as it will have better duodenal penetration and will be better absorbed given the patient's obstruction and duodenal strictures. He is to follow up with Dr. Munoz in 2 weeks and at that time, we will discuss the planning and scheduling of balloon dilatation. This was also discussed with the patient's daughter, Jennifer, who helped to arrange this. Additionally, there is concern for the patient's compliance with the diet. We did request a nutritional consult in order to discuss foods the patient can use at home that would be more palatable to maintain his diet adherence. At the time of discharge, the patient is hemodynamically stable. He is tolerating pureed, mechanical soft diet, p.o. intake and there are no acute concerns. The patient is to start Zegerid as instructed by Dr. Munoz and was instructed to call Dr. Munoz's office if there are any concerns with his new medication. Patient was advised to avoid NSAID use. CONCERNS AT DISCHARGE: Mr. Reyes will be discharged to home on 03/18/17. He is to follow up with his PCP within the week as well as Dr. White as previously scheduled for his urinary retention and TURP follow-up. The patient is to call Dr. Munoz for appointment to be seen in 2 weeks. This has been conveyed to the daughter, Jennifer, who spoke with Dr. Munoz already and is aware of the recommendations. DIET: Pureed diet. ACTIVITY: As tolerated. CONDITION: Stable. DISPOSITION: To home. TIME SPENT: Time spent on this discharge was approximately 55 minutes. Again, this is only a brief summary of the patient's hospital course of stay. For full details, please refer to the full medical record. If you have any further questions or need further assistance, please feel free to contact me at . EKATERINA SPENCE NP CC: Nickie Agosto NP* [id number]/[facility] #: [id number] MTDD
== END 2017-03-18 17:30 | disposition home or self-care (01) | DRG 394 ==
LOC: ED 14:28 → MED 21:23 → OBSVTOIN 03-14 15:00
PROVIDERS: ADMIT Hospitalist; ATTEND Internal Medicine
PROC: 0DB68ZX Excision of Stomach, Via Natural or Artificial Opening Endoscopic, Diagnostic (ICD-10-PCS; principal; 2017-03-15)
PROC: 0DB68ZX Excision of Stomach, Via Natural or Artificial Opening Endoscopic, Diagnostic (ICD-10-PCS; 2017-03-15)
PROC: 0DC68ZZ Extirpation of Matter from Stomach, Via Natural or Artificial Opening Endoscopic (ICD-10-PCS; 2017-03-15)
DX: T18.2XXA Foreign body in stomach, initial encounter (principal); K31.1 Adult hypertrophic pyloric stenosis; K31.5 Obstruction of duodenum; J44.9 Chronic obstructive pulmonary disease, unspecified; K26.3 Acute duodenal ulcer without hemorrhage or perforation; K22.10 Ulcer of esophagus without bleeding; R33.9 Retention of urine, unspecified; N40.0 Benign prostatic hyperplasia without lower urinary tract symptoms; X58.XXXA Exposure to other specified factors, initial encounter; R91.8 Other nonspecific abnormal finding of lung field; Y92.9 Unspecified place or not applicable; Z79.899 Other long term (current) drug therapy; Z88.0 Allergy status to penicillin; Z80.9 Family history of malignant neoplasm, unspecified; Z87.891 Personal history of nicotine dependence
CPT/HCPCS: 36415; 71275; 74177; 80048; 80053; 81003; 81015; 82272; 83605; 83690; 83735; 83880; 84443; 84484; 85014; 85018; 85025; 85610; 85730; 86140; 87077; 87086; 94640; 94760; A9270-GY; J1644; J2250; J2270; J2405; Q9967

== ENCOUNTER 2019-01-27 12:05 | Inpatient (IN) | payer MEDICARE, OTHER ==
[2019-01-27] MEDS ORDERED: methylPREDNISolone 125 MG* 2 ML VIAL IV ONE (12:20)
[2019-01-27] MEDS ORDERED: Albuterol/Ipratropium NEB.SOL* Albuterol 2.5 MG/Ipratropium 0.5 MG 3 ML INH ONE ×2 (12:20→14:54)
--- NOTE | 2019-01-27 12:22 | ED ---
HPI Cardiac - HPI Summary HPI Summary: This patient is a 73 year old M presenting to ED with a chief complaint of SOB, chest wall pain, and palpitations since 3-4 days ago. Patient reports he has been using his inhaler. The patient rates the pain 0/10 in severity currently. Symptoms aggravated by nothing. Symptoms alleviated by nothing. PMHx of COPD. - History of Current Complaint Stated Complaint: DIFF BREATHING,CHEST HURTS, PALPITATIONS- PER PT Time Seen by Provider: 01/27/19 12:12 Hx Obtained From: Patient Onset/Duration: Started Days Ago - 3-4 days ago, Still Present Timing: Constant, Lasting Days Aggravating Factor(s): Nothing Alleviating Factor(s): Nothing Associated Signs and Symptoms: Positive: Chest Pain, Shortness of Breath, Palpitations - Additional Pertinent History Primary Care Physician: CHUCK - Allergy/Home Medications Allergies/Adverse Reactions: Allergies Allergy/AdvReac Type Severity Reaction Status Date / Time Penicillins Allergy Mild Rash Verified 01/27/19 12:42 PMH/Surg Hx/FS Hx/Imm Hx Endocrine/Hematology History: Reports: Hx Anemia - r/t bleeding ulcer - on protonix Denies: Hx Anticoagulant Therapy, Hx Diabetes, Hx Thyroid Disease Cardiovascular History: Denies: Hx Hypertension, Hx Pacemaker/ICD Respiratory History: Reports: Hx Chronic Obstructive Pulmonary Disease (COPD), Other Respiratory Problems/Disorders - emphysema Denies: Hx Asthma, Hx Chronic Bronchitis, Hx Pneumonia GI History: Reports: Hx Gastroesophageal Reflux Disease, Hx Ulcer - duodenal ulcer - 1-2 months ago, Other GI Disorders - hx of SBO History: Reports: Hx Benign Prostatic Hyperplasia, Hx Kidney Stones - bladder calculi, Other Problems/Disorders - BPH - has a johnson Denies: Hx Renal Disease Musculoskeletal History: Reports: Hx Arthritis - right knee Denies: Hx Back Problems Sensory History: Reports: Hx Cataracts - slight cataract, Hx Contacts or Glasses Denies: Hx Hearing Aid Opthamlomology History: Reports: Hx Cataracts - slight cataract, Hx Contacts or Glasses Neurological History: Denies: Hx Dementia, Hx Seizures Psychiatric History: Denies: Hx Substance Abuse - Cancer History Cancer Type, Location and Year: bph - Surgical History Surgery Procedure, Year, and Place: right inguinal HERNIA REPAIR 08/29/16. tonsillectomy and adenoids as a child Hx Anesthesia Reactions: No - Immunization History Date of Influenza Vaccine: up to date Infectious Disease History: Denies: Hx Hepatitis, Hx Human Immunodeficiency Virus (HIV), Traveled Outside the [place] in Last 30 Days - Family History Known Family History: Positive: Diabetes - sister, Other - CA Family History: FHx of CA (brothers) - Social History Alcohol Use: Rare Hx Substance Use: No Substance Use Type: Reports: None Hx Tobacco Use: Yes Smoking Status (MU): Former Smoker Review of Systems Positive: Palpitations, Chest Pain Positive: Shortness Of Breath All Other Systems Reviewed And Are Negative: Yes Physical Exam - Summary Physical Exam Summary: Constitutional: Well-developed, thin, Alert. (-) Distressed Skin: Warm, Appears dry, has poor skin turgor HENT: Normocephalic; Atraumatic Eyes: Conjunctiva normal Neck: Musculoskeletal ROM normal neck. (-) JVD, (-) Stridor, (-) Tracheal deviation Cardio: Rhythm regular, tachycardic, Heart sounds normal; Intact distal pulses; The pedal pulses are 2+ and symmetric. Radial pulses are 2+ and symmetric. (-) Murmur Pulmonary/Chest wall: (-) Respiratory distress, (-) Rales, Diminished breath sounds bilaterally with wheezes bilaterally Abd: Soft, (-) tenderness, (-) Distension, (-) Guarding, (-) Rebound Musculoskeletal: (-) Edema Lymph: (-) Cervical adenopathy Neuro: Alert, Oriented x3 Psych: Mood and affect Normal Triage Information Reviewed: Yes Vital Signs On Initial Exam: Initial Vitals Temp Pulse Resp BP Pulse Ox 98.7 F 89 20 133/79 72 01/27/19 12:12 01/27/19 12:12 01/27/19 12:12 01/27/19 12:12 01/27/19 12:12 Vital Signs Reviewed: Yes Diagnostics - Laboratory Result Diagrams: 01/27/19 12:24 01/27/19 12:24 Lab Statement: Any lab studies that have been ordered have been reviewed, and results considered in the medical decision making process. - Radiology CXR Radiology Interpretation Completed By: Radiologist Summary of Radiographic Findings: BIBASILAR INFILTRATES. Dr. Luna has reviewed this radiology report. - EKG 1236 Cardiac Rate: NL - 96 BPM EKG Rhythm: Sinus Rhythm Summary of EKG Findings: Normal sinus rhythm at 96 bpm, normal WY, normal QRS, normal QTc, normal axis, normal ST, normal T-waves, non-specific EKG. 1238 Cardiac Rate: NL - 96 BPM EKG Rhythm: Sinus Rhythm Summary of EKG Findings: Normal sinus rhythm at 97 bpm, normal WY, normal QRS, normal QTc, normal axis, normal ST, normal T-waves, non-specific EKG. Re-Evaluation - Re-Evaluation First Eval Re-Evaluation Time: 12:32 Change: Improved Comment: The patient was put on Bipap and is feeling better now. Second Eval Re-Evaluation Time: 13:33 Comment: Took the bipap off and the patient still wheezes so we put him back on bipap. Discussed with the patient about his results. Disposition - Course Assessment/Plan: This patient is a 73 year old M presenting to ED with a chief complaint of SOB, chest wall pain, and palpitations since 3-4 days ago. On exam , the patient is thin, appears dry, has poor skin turgor, is tachycardic, and has diminished breath sounds bilaterally with wheezes bilaterally. In the ED course, the patient was given fluids, duoneb, and solu-medrol. Normal sinus rhythm at 97 bpm, normal WY, normal QRS, normal QTc, normal axis, normal ST, normal T-waves, non-specific EKG. CXR reveals BIBASILAR INFILTRATES. Consulted Dr. Sylvester at 1352 who accepts the patient for admission. This patient will be admitted with dx of COPD exacerbation, acute renal failure, and elevated troponin. Patient understands and agrees with this plan. - Differential Dx - Cardiopulmonary Differential Diagnoses - Cardiopulmonary: Exacerbation Of COPD, Other - acute renal failure, elevated troponin - Diagnoses Provider Diagnoses: COPD exacerbation, Elevated troponin, Acute renal failure - Physician Notifications Discussed Care Of Patient With: Emma Sylvester Time Discussed With Above Provider: 13:52 Instructed by Provider To: Admit As Inpatient - Critical Care Time Critical Care Time: 30-74 min Discharge - Sign-Out/Discharge Documenting (check all that apply): Patient Departure - admit Patient Received Moderate/Deep Sedation with Procedure: No - Discharge Plan Condition: Stable Disposition: ADMITTED TO [facility] Referrals: Nickie Agosto, [employer] [Primary Care Provider] - - Billing Disposition and Condition Condition: STABLE Disposition: Admitted to [facility] - Attestation Statements Document Initiated by Vonnieibsilvio: Yes Documenting Scribe: Ezequiel Haile Provider For Whom Scribe is Documenting (Include Credential): Oneida Pierre Scribe Attestation: I, Ezequiel Haile, scribed for Oneida Reynoso on 01/27/19 at 2149. Scribe Documentation Reviewed: Yes Provider Attestation: The documentation as recorded by the Ezequiel smith accurately reflects the service I personally performed and the decisions made by me, Oneida Pierre Status of Scribe Document: Viewed
[2019-01-27 12:36] LABS: ABS Basophils 0 10^3/ul (0-0.2); ABS Eosinophils 0 10^3/ul (0-0.6); ABS Lymphocytes 0.4 10^3/ul (1.0-4.8); ABS Monocytes 0.4 10^3/ul (0-0.8); ABS Neutrophils 5.6 10^3/ul (1.5-7.7); ABS Nucleated RBC 0 10^3/ul; Eosinophil % 0 %; Hematocrit 41 % (42-52); Hemoglobin 13.9 g/dl (14.0-18.0); Lymphocyte % 6.5 %; Mean Corpuscular HGB Conc 34 g/dl (31-36); Mean Corpuscular Hemoglobin 30 pg (27-31); Mean Corpuscular Volume 90 fL (80-94); Mean Platelet Volume 9.5 fL (7.4-10.4); Nucleated Red Blood Cells % 0.1; Platelet Count 108 10^3/ul (150-450); Red Blood Count 4.57 10^6/ul (4.00-5.40); Red Cell Distribution Width 14 % (10.5-15); White Blood Count 6.5 10^3/ul (3.5-10.8)
[2019-01-27 12:54] LABS: ALT 28 U/L (7-52); AST 47 U/L (13-39); Albumin 3.9 g/dL (3.2-5.2); Albumin/Globulin Ratio 1.1 (1-3); Alkaline Phosphatase 59 U/L (34-104); Anion Gap 15 mmol/L (2-11); BUN/Creatinine Ratio 26.4 (8-20); Blood Urea Nitrogen 67 mg/dL (6-24); CO2 Carbon Dioxide 24 mmol/L (22-32); Calcium 8.9 mg/dL (8.6-10.3); Chloride 92 mmol/L (101-111); EGFR African American 30.3 (>60); EGFR Non-African American 25.1 (>60); Globulin 3.4 g/dL (2-4); Glucose 141 mg/dL (70-100); Potassium 3.9 mmol/L (3.5-5.0); Sodium 131 mmol/L (135-145); Total Protein 7.3 g/dL (6.4-8.9)
[2019-01-27] MEDS ORDERED: NS 0.9% 500 ML* 500 ML IV ONE (13:10)
[2019-01-27] MEDS ORDERED: NS 0.9% 1000 ML** 1,000 ML IV SCH (13:15)
[2019-01-27 14:07] LABS: Troponin I 0.02 ng/mL (<0.04)
[2019-01-27] MEDS ORDERED: Albuterol/Ipratropium NEB.SOL* Albuterol 2.5 MG/Ipratropium 0.5 MG 3 ML ONE (14:43)
[2019-01-27 15:05] LABS: Influenza A Molecular POSITIVE (Negative)
[2019-01-27 16:55] LABS: Troponin I 0.06 ng/mL (<0.04)
[2019-01-27 19:05] LABS: Troponin I 0.05 ng/mL (<0.04)
[2019-01-27] MEDS ORDERED: Ondansetron INJ* 2 MG/ML VIAL IV PRN (21:03)
[2019-01-27] MEDS ORDERED: Albuterol 2.5 MG/3 ML NEB.SOL* (0.083%) INH PRN (21:06)
[2019-01-27] MEDS ORDERED: guaiFENesin ER TAB 600 MG PO PRN (21:06)
[2019-01-27] MEDS ORDERED: Levofloxacin 500 MG IVPREMIX(* 500 MG/100 ML BAG IVPB ONE (21:30)
--- NOTE | 2019-01-27 23:02 | HP ---
CC: Nickie Agosto NP * HISTORY AND PHYSICAL: DATE OF ADMISSION: 01/27/19 PRIMARY CARE PROVIDER: Nickie Agosto NP. CHIEF COMPLAINT: Shortness of breath. HISTORY OF PRESENT ILLNESS: Mr. Reyes is a 73-year-old male who has a history of COPD, BPH and a past duodenal ulcer, who presented to the emergency room with complaints of shortness of breath. The patient states that his symptoms have been going on for 3 to 4 days. He states that he felt very run down. He states that he felt very breathless with any activity. He also noted that he began to cough up yellowish sputum. He felt like he could not sleep due to feeling short of breath and coughing. He never checked his temperature at home , but denied any shaking chills. He did notice some palpitations. He stated that he did not eat or drink real well over the last few days. PAST MEDICAL HISTORY: 1. COPD. 2. BPH. 3. Duodenal ulcer in 2016. PAST SURGICAL HISTORY: 1. TURBT/TURP. 2. Inguinal hernia repair. 3. Tonsillectomy. MEDICATIONS: 1. Albuterol neb one neb inhaled q.4 hours p.r.n. shortness of breath. 2. Albuterol two puffs inhaled q.4 hours p.r.n. shortness of breath. 3. Symbicort 160/4.5 two puffs inhaled twice daily. 4. Guaifenesin 600 mg p.o. b.i.d. p.r.n. congestion. 5. Zegerid one cap p.o. b.i.d. ALLERGIES: PENICILLIN. FAMILY HISTORY: Both parents are . He was not sure of what they were treated for. SOCIAL HISTORY: The patient is a former smoker of one to two packs a day for 49 years. He quit in 2016. He does not drink alcohol. He does not use any recreational drugs. He was in the [employer]. He is now disabled. He worked at [employer] for a period of time after getting out of the [employer]. He lives with his grandson. He is . His daughter, Jennifer, is his healthcare proxy. REVIEW OF SYSTEMS: A complete 11-system review of systems was obtained. Pertinent positives and negatives are as per HPI. In addition, the patient does state that he has had a couple of loose stools a day over the last few days. The rest of the review of systems is negative. PHYSICAL EXAMINATION GENERAL: The patient is a well-developed elderly male seen sitting up in the stretcher, in no acute distress. VITAL SIGNS: Blood pressure 118/76, pulse 93, respirations 21, temp 98.7, O2 sat 91% on 3 L. HEENT: Pupils are equal and round. Extraocular muscles are intact. Oropharynx is clear. Oral mucosa is dry. There is no submandibular, cervical, or supraclavicular adenopathy. Thyroid is not enlarged. No thyroid nodules noted. PULMONARY: There are bilateral basilar crackles and scattered wheezes. Breath sounds are also diminished throughout. CARDIAC: Normal S1, S2. Heart rate is mildly tachycardic. I do not appreciate any murmurs. There is no lower extremity edema. ABDOMEN: Bowel sounds are present. Abdomen is soft, nontender, and nondistended. NEUROLOGIC: Cranial nerves II through XII are grossly intact. Sensation is intact to light touch throughout. Strength is 5/5 and symmetric in both upper and lower extremities bilaterally. MUSCULOSKELETAL: There is no cyanosis or clubbing of the digits. There is full active range of motion in all 4 extremities. SKIN: Warm and dry. There are no rashes. PSYCHIATRIC: The patient is alert. He is oriented x3. He is a poor historian. Affect appears appropriate. DIAGNOSTIC STUDIES/LAB DATA: WBC 6.5, hemoglobin 13.9, hematocrit 41, platelets 108. Sodium 131, potassium 3.9, chloride 92, CO2 of 24, BUN 67, creatinine 2.54, glucose 141, lactic acid 1.8, calcium 8.9. Bilirubin 0.9, AST 47, ALT 28, alk phos 59. Troponin 0.02, up to 0.06 and subsequently down to 0.05. CRP 427.9, BNP 87, albumin 3.9. Influenza A positive. ABG; 7.39/40/78. EKG reveals sinus tachycardia with minimal ST elevations in the inferior leads. Chest x-ray reveals basilar infiltrates. ASSESSMENT AND PLAN: Mr. Reyes is a 73-year-old male with a known history of chronic obstructive pulmonary disease who presents to the emergency room with complaints of shortness of breath and feeling run down for the last 3 to 4 days and was found to be positive for influenza A with acute hypoxic respiratory failure and chronic obstructive pulmonary disease exacerbation. 1. Influenza A with resultant chronic obstructive pulmonary disease exacerbation and acute hypoxic respiratory failure. At this point, the patient has been treated initially with BiPAP. He is now feeling much improved. He is currently saturating in the low 90s on 3 liters of oxygen and does not appear to be working too hard. At this point, he will be admitted to the medical floor for further treatment. He will be treated with Tamiflu renally dosed. Additionally, I will initiate Levaquin renally dosed given history of copious yellow sputum production along with positive chest x-ray for basilar infiltrates. The patient's CRP is also markedly elevated. We will monitor his respiratory status. The patient continues on 3 liters of oxygen now. We will monitor for further decompensation and if needed, we can reinitiate BiPAP. In terms of COPD exacerbation, the patient has been slightly wheezy. He received Solu-Medrol 125 mg IV x1 in the ER and will continue on 40 mg IV q.12 hours. We will continue p.r.n. albuterol. Additionally, he will remain on inhaled steroids. 2. Acute renal failure. The patient's baseline creatinine is around 0.9 to 1.1 , though the last creatinines we have are from 2017. Currently, his creatinine is markedly elevated at 2.54. I suspect that this is prerenal due to poor oral intake over the last several days. The patient has already received several liters of normal saline in the ER and will continue on normal saline at 100 mL per hour. 3. Elevated troponin. The patient has a mildly elevated troponin, though no complaints of chest pain. His EKG shows slight ST elevation in the inferior leads. I will repeat the EKG now. My suspicion is elevated troponin is secondary to demand ischemia. I will obtain one further troponin now to ensure that it is stable and if that is the case, we will not pursue any further workup at this point but once he is recovered from his acute illness, further cardiac workup as an outpatient could be considered. 4. DVT prophylaxis. According to the Adult Thrombosis Prophylaxis Risk Factor Assessment Guide, the patient has a total risk factor score of 3, making him high risk. Heparin 5000 units subcutaneous q.8 hours will be utilized as DVT prophylaxis. 5. Code status is full. TIME SPENT: Sixty five minutes was spent admitting this patient. [id number]/[facility] #: [id number] MTDNay
[2019-01-27] MEDS: Oseltamivir CAP* 30 MG CAP PO SCH (23:13)
[2019-01-28] MEDS: Heparin VIAL(*) 5000 UNITS/ML VIAL (FIVE THOUSAND) SUBCUT SCH ×4 (00:53→21:11)
[2019-01-28] MEDS: NS 0.9% 1000 ML** 1,000 ML IV SCH ×2 (00:54→12:03)
[2019-01-28] MEDS: Mometasone/Formoter 200/5 MDI INH SCH ×4 (01:52→19:41)
[2019-01-28] MEDS: methylPREDNISolone SOD 40 MG* 1 ML VIAL IV SCH ×2 (05:07→18:11)
[2019-01-28 07:22] LABS: ABS Basophils 0 10^3/ul (0-0.2); ABS Eosinophils 0 10^3/ul (0-0.6); ABS Lymphocytes 0.3 10^3/ul (1.0-4.8); ABS Monocytes 0.4 10^3/ul (0-0.8); ABS Neutrophils 4.1 10^3/ul (1.5-7.7); ABS Nucleated RBC 0 10^3/ul; Eosinophil % 0 %; Hematocrit 35 % (42-52); Hemoglobin 11.9 g/dl (14.0-18.0); Mean Corpuscular HGB Conc 34 g/dl (31-36); Mean Corpuscular Hemoglobin 31 pg (27-31); Mean Corpuscular Volume 90 fL (80-94); Mean Platelet Volume 9.7 fL (7.4-10.4); Nucleated Red Blood Cells % 0; Platelet Count 102 10^3/ul (150-450); Red Cell Distribution Width 15 % (10.5-15); White Blood Count 4.8 10^3/ul (3.5-10.8)
[2019-01-28 07:36] LABS: BUN/Creatinine Ratio 34.2 (8-20); Calcium 8.1 mg/dL (8.6-10.3); EGFR African American 57.4 (>60); EGFR Non-African American 47.5 (>60); Potassium 3.8 mmol/L (3.5-5.0)
[2019-01-28] MEDS ORDERED: Oseltamivir CAP* 75 MG CAP PO SCH (09:00)
[2019-01-28] MEDS ORDERED: Pantoprazole TAB * 40 MG TAB PO SCH (09:00)
[2019-01-28] MEDS ORDERED: Sodium Bicarbonate (ANTACID)* 650 MG TAB PO SCH (09:00)
[2019-01-28] MEDS ORDERED: Azithromycin TAB* 250 MG PO ONE (10:00)
[2019-01-28] MEDS: cefTRIAXone(*) 1 GM in NS 0.9% 50 ML* 50 ML IVPB SCH (10:09)
[2019-01-28] MEDS: Pantoprazole TAB * 40 MG TAB PO SCH ×2 (10:13→21:11)
[2019-01-28] MEDS: Oseltamivir CAP* 30 MG CAP PO SCH ×2 (10:14→21:11)
[2019-01-28] MEDS: Sodium Bicarbonate (ANTACID)* 650 MG TAB PO SCH ×2 (10:14→21:11)
--- NOTE | 2019-01-28 18:44 | PN ---
Subjective Interval History: Pt feeling significantly better but still with cough and O2 requirements. Asking to go home - discussed waiting until pt not hypoxic on room air. Objective Active Medications: Albuterol (Ventolin 2.5 Mg/3 Ml Neb.Tammie*) 2.5 mg INH Q4H PRN PRN Reason: SOB/WHEEZING Azithromycin (Zithromax Tab*) 250 mg PO DAILY [facility] Stop: 02/01/19 09:01 Guaifenesin (Mucinex*) 600 mg PO BID PRN PRN Reason: COUGH Heparin Sodium (Porcine) (Heparin Vial(*)) 5,000 units SUBCUT Q8HR [facility] Last Admin: 01/28/19 15:09 Dose: 5,000 units Ceftriaxone Sodium 1 gm/ (Sodium Chloride) 50 mls @ 200 mls/hr IVPB Q24H [facility] Last Admin: 01/28/19 10:09 Dose: 200 mls/hr Methylprednisolone Sodium Succinate (Solu-Medrol 40 Mg) 40 mg IV Q12H [facility] [place] Last Admin: 01/28/19 18:11 Dose: 40 mg Mometasone Furoate/Formoterol Fumar (Dulera 200/5 Mdi*) 2 puff INH BID [facility] [place]; Protocol Last Admin: 01/28/19 13:16 Dose: 2 puff Ondansetron HCl (Zofran Inj*) 4 mg IV Q6H PRN PRN Reason: NAUSEA Oseltamivir Phosphate (Tamiflu Cap*) 30 mg PO BID [facility] [place] Stop: 02/01/19 09:01 Last Admin: 01/28/19 10:14 Dose: 30 mg Pantoprazole Sodium (Protonix Tab*) 40 mg PO BID [facility] [place] Last Admin: 01/28/19 10:13 Dose: 40 mg Sodium Bicarbonate (Sodium Bicarbonate (Antacid)*) 1,300 mg PO BID [facility] [place] Last Admin: 01/28/19 10:14 Dose: 1,300 mg Vital Signs - 8 hr 01/28/19 01/28/19 11:15 14:24 Temperature 98.9 F Pulse Rate 88 Respiratory 20 18 Rate Blood Pressure 125/63 (mmHg) O2 Sat by Pulse 90 Oximetry Oxygen Devices in Use Now: Nasal Cannula, OxyMask Appearance: well appearing, no increased work of breathing, frequent cough Respiratory: - - diffuse expiratory wheeze and rhonchi; no crackles or focal findings Abdominal: NL Sounds; No Tenderness; No Distention Lymphatic: No Cervical Adenopathy Extremities: No Edema Skin: No Rash or Ulcers Neurological: Alert and Oriented x 3 Result Diagrams: 01/28/19 06:42 01/28/19 06:42 Microbiology and Other Data: Microbiology 01/27/19 15:53 Aerobic Blood Culture - Preliminary Blood Venous No Growth Day 1 Anaerobic Blood Culture - Preliminary No Growth Day 1 01/27/19 14:54 Aerobic Blood Culture - Preliminary Blood Venous No Growth Day 1 Anaerobic Blood Culture - Preliminary No Growth Day 1 01/27/19 13:55 Influenza Types A,B Antigen - Final Nasal Specimen received for Influenza A/B Molecular testing Assess/Plan/Problems-Billing Assessment: 73M with COPD, BPH, and h/o duodenal ulcer, presents with severe fatigue, productive cough, and SOB, found to be influenza A positive. - Patient Problems (1) Influenza A Comment: - cont tamiflu 30mg bid (renal dosing); if renal function improved by discharge , can go to full dose; last day is 01/31 (2) COPD exacerbation Comment: Influenza positive. Also started on empiric antibiotics. - will stop CTX and azithro if cultures negative tomorrow - IV steroids 01/27 - 01/28; will switch to PO tomorrow - cont nebs - on Dulera but unclear why not on Spiriva at home - will DC on this (3) Hx of duodenal ulcer Comment: - cont PPI with sodium bicarb bid (home med) Status and Disposition: Inpatient until without O2 requiremnts.
[2019-01-28] MEDS ORDERED: Levofloxacin 250 MG IVPREMX(*) 250 MG/50 ML BAG IVPB SCH (22:00)
[2019-01-29] MEDS: Heparin VIAL(*) 5000 UNITS/ML VIAL (FIVE THOUSAND) SUBCUT SCH ×3 (05:43→22:20)
[2019-01-29 06:36] LABS: Hematocrit 34 % (36-46); Hemoglobin 11.3 g/dL (14.0-18.0); Mean Corpuscular HGB Conc 33 g/dL (31-36); Mean Corpuscular Hemoglobin 30 pg (27-31); Mean Corpuscular Volume 91 fL (80-94); Mean Platelet Volume 9.1 fL (7.4-10.4); Platelet Count 127 10^3/uL (150-450); Red Blood Count 3.78 10^6 /uL (4.18-5.48); Red Cell Distribution Width 14 % (10.5-15); White Blood Count 5.7 10^3/uL (3.5-10.8)
[2019-01-29 06:57] LABS: BUN/Creatinine Ratio 34.7 (8-20); EGFR African American 73.4 (>60); EGFR Non-African American 60.7 (>60); Magnesium 2.3 mg/dL (1.9-2.7); Potassium 3.8 mmol/L (3.5-5.0)
[2019-01-29 07:20] LABS: ABS Basophils 0 10^3/ul (0-0.2); ABS Eosinophils 0 10^3/ul (0-0.6); ABS Lymphocytes 0.4 10^3/ul (1.0-4.8); ABS Monocytes 0.8 10^3/ul (0-0.8); ABS Neutrophils 4.4 10^3/ul (1.5-7.7); ABS Nucleated RBC 0 10^3/ul; Eosinophil % 0 %; Nucleated Red Blood Cells % 0.1
[2019-01-29] MEDS: cefTRIAXone(*) 1 GM in NS 0.9% 50 ML* 50 ML IVPB SCH (08:25)
[2019-01-29] MEDS: predniSONE TAB* 20 MG PO SCH (08:25)
[2019-01-29] MEDS: Pantoprazole TAB * 40 MG TAB PO SCH ×2 (08:26→22:20)
[2019-01-29] MEDS: Oseltamivir CAP* 30 MG CAP PO SCH (08:26)
[2019-01-29] MEDS: Sodium Bicarbonate (ANTACID)* 650 MG TAB PO SCH ×2 (08:28→22:21)
[2019-01-29] MEDS ORDERED: Azithromycin TAB* 250 MG PO SCH (09:00)
[2019-01-29] MEDS: Mometasone/Formoter 200/5 MDI INH SCH ×2 (10:24→21:21)
--- NOTE | 2019-01-29 18:17 | PN ---
Hospitalist Progress Note Addendum to DC summary. Patient was set to go and had SaO2 > 92% on RA this morning, but by the afternoon his SaO2 decreased to 85% and he was noted to be more dyspnic, especially on ambulation. He is back on supplemental oxygen and will stay admitted at least another day. To continue on Tamiflu and steroids with nebs prn.
--- NOTE | 2019-01-29 20:01 | DS ---
CC: Nickie Agosto NP DISCHARGE SUMMARY: DATE OF ADMISSION: 01/27/19 DATE OF DISCHARGE: 01/29/19 PRIMARY CARE PHYSICIAN: Nickie Agosto NP. DISPOSITION: To home. CONDITION: Improved. PRIMARY DIAGNOSES: 1. Influenza. 2. Chronic obstructive pulmonary disease exacerbation. PERTINENT STUDIES: Influenza A rapid positive. Admission creatinine 2.54, decreased to 1.18 Hemoglobin 11.3, normocytic. Two sets of blood cultures with no growth to date. Chest x-ray on 01/27/19, lungs underinflated with patchy infiltrates at both lung bases, no pleural effusion seen with findings consistent with chronic obstructive pulmonary disease. HISTORY OF PRESENT ILLNESS: A 73-year-old man with a history of COPD, BPH, and history of duodenal ulcer presents to the emergency room with subacute shortness of breath associated with significant fatigue and malaise. He felt breathless with any activity and had an increased productive cough. The shortness of breath was affecting his sleep, so he decided to come to the hospital. He denied fevers, chills, diaphoresis. He did report decreased appetite. HOSPITAL COURSE: In the ER, his rapid influenza A test returned positive. He had initially been treated with BiPAP, but his symptoms improved after starting IV steroids and receiving nebulizer treatments. He was started on Levaquin for increased sputum production as well as Tamiflu and admitted to the medical floor. He was switched to ceftriaxone/azithromycin from Levaquin to cover for community- acquired pneumonia and observed for a couple of days while still requiring supplemental oxygen. On day of discharge, given low concern for bacterial infection, no fevers, no leukocytosis, and no left shift, patient's antibiotics were discontinued and he was maintained on Tamiflu. His SARABJIT on admission resolved. He was able to come off oxygen and maintain SaO2 of 97% on room air. He reported improvements in his shortness of breath and cough and felt ready to go home. Otherwise, 10-point review of systems was negative. PHYSICAL EXAMINATION: Patient is afebrile, heart rate 60s, blood pressure 137/ 67, satting 98% on room air. General: Well-appearing man, conversant and speaking full sentences. Lungs with improved air entry and mild expiratory wheezes diffusely. No accessory muscle use. Heart: Regular rate and rhythm. No murmurs, gallops, or rubs. Abdomen: Soft, nontender, nondistended. Lower Extremities: Warm and well perfused without edema. DISCHARGE PLAN: Patient is to return home. He will continue Tamiflu at full dose, previously was at renal dose, but SARABJIT has resolved. He will also continue steroid burst for 2 more days and he should follow up with his primary care physician within 1 to 2 weeks. He was given return precautions and told to return to the hospital if fever develops or shortness of breath or cough begin to worsen or he begins experiencing shaking chills. He can resume normal diet and level of activity. MEDICATIONS ON DISCHARGE: 1. Oseltamivir 75 mg twice a day for 3 more days. 2. Prednisone 40 mg daily for 2 days. 3. Symbicort 2 puffs twice a day. 4. Albuterol 1 puff every 4 hours as needed for shortness of breath. 5. Guaifenesin 600 mg orally twice a day as needed for cough. 6. Omeprazole/sodium bicarb 20 mg twice a day. Would recommend to PCP to consider starting tiotropium inhaler. TIME SPENT: Approximately 60 minutes were spent on discharge of this patient, more than half of which was spent with care coordination or at bedside for interview and exam. [id number]/[facility] #: [id number] JACQUELINE
[2019-01-29] MEDS: Oseltamivir CAP* 75 MG CAP PO SCH (22:19)
[2019-01-30 06:26] LABS: Hematocrit 34 % (36-46); Hemoglobin 11.3 g/dL (14.0-18.0); Mean Corpuscular HGB Conc 33 g/dL (31-36); Mean Corpuscular Hemoglobin 30 pg (27-31); Mean Corpuscular Volume 91 fL (80-94); Mean Platelet Volume 9.1 fL (7.4-10.4); Platelet Count 152 10^3/uL (150-450); Red Blood Count 3.72 10^6 /uL (4.18-5.48); Red Cell Distribution Width 15 % (10.5-15); White Blood Count 7.2 10^3/uL (3.5-10.8)
[2019-01-30 06:39] LABS: Calcium 8.2 mg/dL (8.6-10.3); EGFR African American 81.3 (>60); EGFR Non-African American 67.2 (>60); Magnesium 2.2 mg/dL (1.9-2.7); Potassium 3.7 mmol/L (3.5-5.0)
[2019-01-30] MEDS: Heparin VIAL(*) 5000 UNITS/ML VIAL (FIVE THOUSAND) SUBCUT SCH ×3 (06:50→21:27)
[2019-01-30 07:23] LABS: Neutrophil % 64 %
[2019-01-30 07:25] LABS: Immature Granulocytes 4 % (0-9); Lymphocytes % 23 %; Metamyelocytes % 1 % (0-2); Monocytes % 9 %; Myelocytes % 2 % (0-1)
[2019-01-30 07:26] LABS: ABS Neutrophils 4.9 10^3/ul (1.5-7.7)
[2019-01-30] MEDS: predniSONE TAB* 20 MG PO SCH (09:09)
[2019-01-30] MEDS: Pantoprazole TAB * 40 MG TAB PO SCH ×2 (09:10→21:28)
[2019-01-30] MEDS: Sodium Bicarbonate (ANTACID)* 650 MG TAB PO SCH ×2 (09:10→21:28)
[2019-01-30] MEDS: Oseltamivir CAP* 75 MG CAP PO SCH ×2 (09:10→21:28)
[2019-01-30] MEDS: Mometasone/Formoter 200/5 MDI INH SCH ×2 (09:12→20:19)
--- NOTE | 2019-01-30 14:39 | PN ---
Subjective Date of Service: 01/30/19 Interval History: Denies any complaints.Discussed plan of care Objective Active Medications: Albuterol (Ventolin 2.5 Mg/3 Ml Neb.Tammie*) 2.5 mg INH Q4H PRN PRN Reason: SOB/WHEEZING Guaifenesin (Mucinex*) 600 mg PO BID PRN PRN Reason: COUGH Last Admin: 01/28/19 21:11 Dose: 600 mg Heparin Sodium (Porcine) (Heparin Vial(*)) 5,000 units SUBCUT Q8HR [facility] Last Admin: 01/30/19 06:50 Dose: 5,000 units Mometasone Furoate/Formoterol Fumar (Dulera 200/5 Mdi*) 2 puff INH BID [facility]; Protocol Last Admin: 01/30/19 09:12 Dose: 2 puff Ondansetron HCl (Zofran Inj*) 4 mg IV Q6H PRN PRN Reason: NAUSEA Oseltamivir Phosphate (Tamiflu Cap*) 75 mg PO BID [facility] Stop: 02/01/19 09:01 Last Admin: 01/30/19 09:10 Dose: 75 mg Pantoprazole Sodium (Protonix Tab*) 40 mg PO BID [facility] Last Admin: 01/30/19 09:10 Dose: 40 mg Prednisone (Deltasone Tab*) 40 mg PO DAILY [facility] Last Admin: 01/30/19 09:09 Dose: 40 mg Sodium Bicarbonate (Sodium Bicarbonate (Antacid)*) 1,300 mg PO BID [facility] Last Admin: 01/30/19 09:10 Dose: 1,300 mg Vital Signs - 8 hr 01/30/19 01/30/19 01/30/19 07:48 08:00 08:24 Temperature 96.7 F Pulse Rate 40 56 Respiratory 30 26 26 Rate Blood Pressure 126/58 (mmHg) O2 Sat by Pulse 98 Oximetry 01/30/19 09:17 Temperature Pulse Rate 85 Respiratory 16 Rate Blood Pressure (mmHg) O2 Sat by Pulse 93 Oximetry Oxygen Devices in Use Now: Nasal Cannula Eyes: No Scleral Icterus Ears/Nose/Mouth/Throat: NL Teeth, Lips, Gums Neck: NL Appearance and Movements; NL JVP Respiratory: Symmetrical Chest Expansion and Respiratory Effort, - - bilateral wheezes Cardiovascular: NL Sounds; No Murmurs; No JVD Abdominal: NL Sounds; No Tenderness; No Distention Skin: No Rash or Ulcers Neurological: Alert and Oriented x 3 Result Diagrams: 01/30/19 05:49 01/30/19 05:49 Microbiology and Other Data: Microbiology 01/27/19 15:53 Aerobic Blood Culture - Preliminary Blood Venous No Growth Day 1 Anaerobic Blood Culture - Preliminary No Growth Day 1 01/27/19 14:54 Aerobic Blood Culture - Preliminary Blood Venous No Growth Day 1 Anaerobic Blood Culture - Preliminary No Growth Day 1 01/27/19 13:55 Influenza Types A,B Antigen - Final Nasal Specimen received for Influenza A/B Molecular testing Assess/Plan/Problems-Billing Assessment: 73M with COPD, BPH, and h/o duodenal ulcer, presents with severe fatigue, productive cough, and SOB, found to be influenza A positive. - Patient Problems (1) COPD exacerbation Current Visit: Yes Status: Acute Code(s): J44.1 - CHRONIC OBSTRUCTIVE PULMONARY DISEASE W (ACUTE) EXACERBATION SNOMED Code(s): 674800178 Comment: Influenza positive. Also started on empiric antibiotics. -On po prednisone - cont nebs -Doxy -Flu rx (2) Influenza A Current Visit: Yes Status: Acute Code(s): J10.1 - FLU DUE TO OTH IDENT INFLUENZA VIRUS W OTH RESP MANIFEST SNOMED Code(s): 734224171 Comment: -Was on renal dosing.Now full dose Tamiflu (3) Hx of duodenal ulcer Current Visit: Yes Status: Acute Code(s): Z87.19 - PERSONAL HISTORY OF OTHER DISEASES OF THE DIGESTIVE SYSTEM SNOMED Code(s): 994014027 Comment: - cont PPI with sodium bicarb bid (home med) (4) Pneumonia Current Visit: Yes Status: Acute Code(s): J18.9 - PNEUMONIA, UNSPECIFIED ORGANISM SNOMED Code(s): 310192475 Comment: superimposed bacterial pneumonia was on iv antibiotics will place on doxy (5) Pneumonia Current Visit: Yes Status: Acute Code(s): J18.9 - PNEUMONIA, UNSPECIFIED ORGANISM SNOMED Code(s): 513428286 Status and Disposition: Desat during d/c yday to 85% o2 being arranged.Also will add doxy and continuer management for flu.Still sob today.If better can be discharged tomorrow or Mon
[2019-01-30] MEDS: DOXYcycline CAP(*) 100 MG PO SCH (21:28)
[2019-01-31] MEDS: Heparin VIAL(*) 5000 UNITS/ML VIAL (FIVE THOUSAND) SUBCUT SCH (05:21)
[2019-01-31 06:11] LABS: Hematocrit 33 % (36-46); Mean Corpuscular HGB Conc 33 g/dL (31-36); Mean Corpuscular Hemoglobin 30 pg (27-31); Mean Corpuscular Volume 91 fL (80-94); Mean Platelet Volume 8.6 fL (7.4-10.4); Platelet Count 172 10^3/uL (150-450); Red Blood Count 3.64 10^6 /uL (4.18-5.48); Red Cell Distribution Width 15 % (10.5-15); White Blood Count 6.6 10^3/uL (3.5-10.8)
[2019-01-31 06:25] LABS: BUN/Creatinine Ratio 39.8 (8-20); Calcium 8.1 mg/dL (8.6-10.3); EGFR African American 85.9 (>60); Potassium 3.6 mmol/L (3.5-5.0)
[2019-01-31 06:34] LABS: ABS Basophils 0 10^3/ul (0-0.2); ABS Eosinophils 0 10^3/ul (0-0.6); ABS Lymphocytes 1.2 10^3/ul (1.0-4.8); ABS Monocytes 0.9 10^3/ul (0-0.8); ABS Neutrophils 4.4 10^3/ul (1.5-7.7); ABS Nucleated RBC 0 10^3/ul
[2019-01-31 06:36] LABS: Lymphocytes % 20 %; Monocytes % 8 %; Myelocytes % 4 % (0-1); Neutrophil % 62 %; Promyelocytes % 3 %
[2019-01-31 06:37] LABS: Immature Granulocytes 9 % (0-9); Variant Lymph % 1 % (0-6)
[2019-01-31 06:38] LABS: ABS Neutrophils 4.7 10^3/ul (1.5-7.7)
[2019-01-31 07:41] VITALS: BP 154/61
[2019-01-31] MEDS: DOXYcycline CAP(*) 100 MG PO SCH (08:54)
[2019-01-31] MEDS: Oseltamivir CAP* 75 MG CAP PO SCH (08:55)
[2019-01-31] MEDS: predniSONE TAB* 20 MG PO SCH (08:55)
[2019-01-31] MEDS: Sodium Bicarbonate (ANTACID)* 650 MG TAB PO SCH (08:55)
[2019-01-31] MEDS: Pantoprazole TAB * 40 MG TAB PO SCH (08:56)
[2019-01-31] MEDS: Mometasone/Formoter 200/5 MDI INH SCH (08:57)
--- NOTE | 2019-01-31 11:51 | DS ---
ADDENDUM: DATE OF ADMISSION: 01/27/19 DATE OF DISCHARGE: 01/31/19 Please refer to the discharge summary dictated by Dr. Leigh on 01/29/19 for full details. The patie nt was noted to have influenza A and COPD exacerbation secondary to influenza, also was going to be d ischarged on 01/29/19 on Tamiflu, however, was noted to be desaturating to 85%. The patient was adde d coverage for superimposed bacterial pneumonia and had been started on doxycycline and doing well. Oxygen has been also arranged for the patient. The patient at this time wants to go home and will go home on oxygen, prednisone taper and patient to complete his Tamiflu course and doxycycline for 5 da ys. Vitals and labs are noted to be stable at time of discharge. DISPOSITION: The patient to be discharged home. PHYSICAL EXAMINATION: Vital Signs: Temperature 97.5, heart rate 55, oxygen saturation 95% on 2 L. HEENT: NCAT. Heart: S1 and S2 present, regular at the time of exam. Lungs: Still noted to have s ome bronchial breath sounds and scattered wheezes. Abdomen: Soft. Extremities: No edema. Neuro: Alert and oriented. For further details, please refer to the discharged summary dictated by Dr. Leigh on 01/29/19. [id number]/[facility] #: [id number]
== END 2019-01-31 16:45 | disposition home or self-care (01) | DRG 193 ==
LOC: ED 12:05 → MED 21:03
PROVIDERS: ADMIT Hospitalist; ATTEND Internal Medicine
DX: J10.00 Influenza due to other identified influenza virus with unspecified type of pneumonia (principal); J96.01 Acute respiratory failure with hypoxia; N17.9 Acute kidney failure, unspecified; J44.1 Chronic obstructive pulmonary disease with (acute) exacerbation; I24.8 Other forms of acute ischemic heart disease; N40.0 Benign prostatic hyperplasia without lower urinary tract symptoms; R74.8 Abnormal levels of other serum enzymes; Z79.51 Long term (current) use of inhaled steroids; Z79.899 Other long term (current) drug therapy; Z88.0 Allergy status to penicillin; Z87.891 Personal history of nicotine dependence; Z87.19 Personal history of other diseases of the digestive system
CPT/HCPCS: 36415; 71045; 80048; 80053; 82803; 83605; 83735; 83880; 84484; 85025; 86140; 87040; 93005; 94640; 99284; A9270-GY; G8978-GP-CI; G8979-GP-CI; G8980-GP-CI; J0696; J1644; J1956; J2920; J2930; J7512

== ENCOUNTER 2019-11-13 06:22 | Emergency (ER) | payer OTHER ==
[2019-11-13] MEDS ORDERED: NS 0.9% 1000 ML** 1,000 ML IV ONE ×2 (07:34→11:27)
[2019-11-13 07:55] LABS: ABS Basophils 0.1 10^3/ul (0-0.2); ABS Eosinophils 0.3 10^3/ul (0-0.6); ABS Lymphocytes 1.1 10^3/ul (1.0-4.8); ABS Monocytes 0.5 10^3/ul (0-0.8); ABS Neutrophils 3.8 10^3/ul (1.5-7.7); Hematocrit 35 % (42-52); Hemoglobin 11.5 g/dL (14.0-18.0); Lymphocyte % 19.5 %; Mean Corpuscular HGB Conc 33 g/dL (31-36); Mean Corpuscular Hemoglobin 30 pg (27-31); Mean Corpuscular Volume 91 fL (80-94); Mean Platelet Volume 9.2 fL (7.4-10.4); Platelet Count 148 10^3/uL (150-450); Red Blood Count 3.82 10^6 /uL (4.18-5.48); Red Cell Distribution Width 14 % (10-15); White Blood Count 5.7 10^3/uL (3.5-10.8)
[2019-11-13 08:06] LABS: Urine Appearance Turbid; Urine Specific Gravity 1.019 (1.010-1.030)
[2019-11-13 08:07] LABS: Urine Color Red
[2019-11-13 08:07] LABS: Albumin 4.1 g/dL (3.2-5.2); Albumin/Globulin Ratio 1.6 (1-3); BUN/Creatinine Ratio 19.5 (8-20); Calcium 9.6 mg/dL (8.6-10.3); EGFR African American 73.2 (>60); EGFR Non-African American 60.5 (>60); Globulin 2.6 g/dL (2-4); Potassium 4.3 mmol/L (3.5-5.0); Total Bilirubin 0.6 mg/dL (0.2-1.0); Total Protein 6.7 g/dL (6.4-8.9)
[2019-11-13] MEDS ORDERED: Iohexol 300* (CONTRAST) 10 ML SDV IV ONE (08:12)
[2019-11-13] MEDS ORDERED: Iodixanol* (CONTRAST) 320 MG/ML 100 ML SDV IV ONE (08:13)
[2019-11-13 08:18] LABS: Activated Partial Thrombo Time 30.7 seconds (26.0-38.0); INR 0.91 (0.82-1.09)
[2019-11-13] MEDS ORDERED: Morphine 4 MG/ML VIAL (1 ml) 4 MG/ML VIAL IV ONE ×2 (08:22→09:44)
[2019-11-13 08:33] LABS: Urine Red Blood Cell 3+(>10/hpf) (Absent)
[2019-11-13] MEDS ORDERED: Lidocaine 2% JELLY* 6 ML JELLY TOPICAL ONE (10:55)
[2019-11-13] MEDS ORDERED: Tamsulosin CAP* 0.4 MG PO ONE (11:28)
--- NOTE | 2019-11-13 14:19 | ED ---
Complaint/Male - History of Current Complaint Chief Complaint: EDUrogenitalProblems Time Seen by Provider: 11/13/19 06:39 - Allergies/Home Medications Allergies/Adverse Reactions: Allergies Allergy/AdvReac Type Severity Reaction Status Date / Time Penicillins Allergy Mild Rash Verified 11/13/19 06:30 PMH/Surg Hx/FS Hx/Imm Hx Endocrine/Hematology History: Reports: Hx Anemia - r/t bleeding ulcer - on protonix Denies: Hx Anticoagulant Therapy, Hx Diabetes, Hx Thyroid Disease Cardiovascular History: Denies: Hx Hypertension, Hx Pacemaker/ICD Respiratory History: Reports: Hx Chronic Obstructive Pulmonary Disease (COPD), Other Respiratory Problems/Disorders - emphysema Denies: Hx Asthma, Hx Chronic Bronchitis, Hx Pneumonia GI History: Reports: Hx Gastroesophageal Reflux Disease, Hx Ulcer - duodenal ulcer - 1-2 months ago, Other GI Disorders - hx of SBO History: Reports: Hx Benign Prostatic Hyperplasia, Hx Kidney Stones - bladder calculi, Other Problems/Disorders - BPH - has a johnson Denies: Hx Renal Disease Musculoskeletal History: Reports: Hx Arthritis - right knee Denies: Hx Back Problems Sensory History: Reports: Hx Cataracts - slight cataract, Hx Contacts or Glasses Denies: Hx Hearing Aid Opthamlomology History: Reports: Hx Cataracts - slight cataract, Hx Contacts or Glasses Neurological History: Denies: Hx Dementia, Hx Seizures Psychiatric History: Denies: Hx Substance Abuse - Cancer History Cancer Type, Location and Year: bph - Surgical History Surgery Procedure, Year, and Place: right inguinal HERNIA REPAIR 08/29/16. tonsillectomy and adenoids as a child Hx Anesthesia Reactions: No - Immunization History Date of Influenza Vaccine: up to date Infectious Disease History: No Infectious Disease History: Denies: Hx Hepatitis, Hx Human Immunodeficiency Virus (HIV), Traveled Outside the [place] in Last 30 Days - Family History Known Family History: Positive: Diabetes - sister, Other - [place] Family History: FHx of [place] (brothers) - Social History Alcohol Use: None Hx Substance Use: No Substance Use Type: Reports: None Hx Tobacco Use: Yes Smoking Status (MU): Former Smoker Physical Exam Vital Signs On Initial Exam: Initial Vitals Temp Pulse Resp BP Pulse Ox 99.2 F 76 18 180/78 97 11/13/19 06:24 11/13/19 06:24 11/13/19 06:24 11/13/19 06:24 11/13/19 06:24 Diagnostics - Vital Signs Vital Signs Temp Pulse Resp BP Pulse Ox 11/13/19 13:10 75 162/93 98 11/13/19 13:00 50 100 11/13/19 12:40 56 134/69 100 11/13/19 12:10 54 124/62 98 11/13/19 12:00 58 98 11/13/19 11:40 60 116/73 98 11/13/19 11:10 60 137/79 96 11/13/19 11:00 70 98 11/13/19 10:41 74 174/109 97 11/13/19 10:10 75 130/85 99 11/13/19 10:00 73 99 11/13/19 09:53 18 11/13/19 09:40 81 162/99 98 11/13/19 09:11 78 176/96 98 11/13/19 09:10 79 98 11/13/19 08:30 18 11/13/19 06:24 99.2 F 76 18 180/78 97 - Laboratory Lab Results: Lab Results 11/13/19 11/13/19 11/13/19 Range/Units 06:50 07:45 07:45 WBC 5.7 (3.5-10.8) 10^3/uL RBC 3.82 L (4.18-5.48) 10^6 /uL Hgb 11.5 L (14.0-18.0) g/dL Hct 35 L (42-52) % MCV 91 (80-94) fL MCH 30 (27-31) pg MCHC 33 (31-36) g/dL RDW 14 (10-15) % Plt Count 148 L (150-450) 10^3/uL MPV 9.2 (7.4-10.4) fL Neut % (Auto) 65.7 % Lymph % (Auto) 19.5 % [place] % (Auto) 8.8 % Eos % (Auto) 5.0 % Baso % (Auto) 1.0 % Absolute Neuts (auto) 3.8 (1.5-7.7) 10^3/ul Absolute Lymphs (auto) 1.1 (1.0-4.8) 10^3/ul Absolute Monos (auto) 0.5 (0-0.8) 10^3/ul Absolute Eos (auto) 0.3 (0-0.6) 10^3/ul Absolute Basos (auto) 0.1 (0-0.2) 10^3/ul Absolute Nucleated RBC 0.0 10^3/ul Nucleated RBC % 0.0 INR (Anticoag Therapy) (0.82-1.09) APTT (26.0-38.0) seconds Sodium 138 (135-145) mmol/L Potassium 4.3 (3.5-5.0) mmol/L Chloride 101 (101-111) mmol/L Carbon Dioxide 33 H (22-32) mmol/L Anion Gap 4 (2-11) mmol/L BUN 23 (6-24) mg/dL Creatinine 1.18 H (0.67-1.17) mg/dL Est GFR ( Amer) 73.2 (>60) Est GFR (Non-Af Amer) 60.5 (>60) BUN/Creatinine Ratio 19.5 (8-20) Glucose 116 H (70-100) mg/dL Calcium 9.6 (8.6-10.3) mg/dL Total Bilirubin 0.60 (0.2-1.0) mg/dL AST 18 (13-39) U/L ALT 11 (7-52) U/L Alkaline Phosphatase 57 (34-104) U/L Total Protein 6.7 (6.4-8.9) g/dL Albumin 4.1 (3.2-5.2) g/dL Globulin 2.6 (2-4) g/dL Albumin/Globulin Ratio 1.6 (1-3) Urine Color Red A Urine Appearance Turbid Ur Specific [place] 1.019 (1.010-1.030) Urine WBC (Auto) [employer] Urine RBC (Auto) 3+(>10/hpf) A (Absent) Urine Bacteria [employer] 11/13/19 Range/Units 07:45 WBC (3.5-10.8) 10^3/uL RBC (4.18-5.48) 10^6 /uL Hgb (14.0-18.0) g/dL Hct (42-52) % MCV (80-94) fL MCH (27-31) pg MCHC (31-36) g/dL RDW (10-15) % Plt Count (150-450) 10^3/uL MPV (7.4-10.4) fL Neut % (Auto) % Lymph % (Auto) % [place] % (Auto) % Eos % (Auto) % Baso % (Auto) % Absolute Neuts (auto) (1.5-7.7) 10^3/ul Absolute Lymphs (auto) (1.0-4.8) 10^3/ul Absolute Monos (auto) (0-0.8) 10^3/ul Absolute Eos (auto) (0-0.6) 10^3/ul Absolute Basos (auto) (0-0.2) 10^3/ul Absolute Nucleated RBC 10^3/ul Nucleated RBC % INR (Anticoag Therapy) 0.91 (0.82-1.09) APTT 30.7 (26.0-38.0) seconds Sodium (135-145) mmol/L Potassium (3.5-5.0) mmol/L Chloride (101-111) mmol/L Carbon Dioxide (22-32) mmol/L Anion Gap (2-11) mmol/L BUN (6-24) mg/dL Creatinine (0.67-1.17) mg/dL Est GFR ( Amer) (>60) Est GFR (Non-Af Amer) (>60) BUN/Creatinine Ratio (8-20) Glucose (70-100) mg/dL Calcium (8.6-10.3) mg/dL Total Bilirubin (0.2-1.0) mg/dL AST (13-39) U/L ALT (7-52) U/L Alkaline Phosphatase (34-104) U/L Total Protein (6.4-8.9) g/dL Albumin (3.2-5.2) g/dL Globulin (2-4) g/dL Albumin/Globulin Ratio (1-3) Urine Color Urine Appearance Ur Specific [place] (1.010-1.030) Urine WBC (Auto) Urine RBC (Auto) (Absent) Urine Bacteria Result Diagrams: 11/13/19 07:45 11/13/19 07:45 Lab Statement: Any lab studies that have been ordered have been reviewed, and results considered in the medical decision making process.
--- NOTE | 2019-11-13 14:24 | ED ---
GI/ HPI - HPI Summary HPI Summary: This patient is a 74-year-old male with a history of BPH and TURP [place] [address] White presenting to the ED with gross hematuria with clots 1.5 days. He is also endorsing pain and burning with urination. He states he has had symptoms similar to this when he had his TURP procedure and has needed Johnson catheters in the past. He denies any fevers, sweats, chills. Denies any abdominal pain. Denies any flank pain. - History of Current Complaint Chief Complaint: EDUrogenitalProblems Time Seen by Provider: 11/13/19 06:39 Stated Complaint: BLOOD IN URINE PER PT Hx Obtained From: Patient Onset/Duration: Started Days Ago Timing: Constant Severity: Moderate Current Severity: Moderate Pain Intensity: 6 Additional Locations for Males: Penis Pain Characteristics: Burning Associated Signs and Symptoms: Negative: Hematemesis, Back Pain, Change in Appetite, Dyspureunia, Flank Pain - Additional Pertinent History Primary Care Physician: CHUCK - Allergy/Home Medications Allergies/Adverse Reactions: Allergies Allergy/AdvReac Type Severity Reaction Status Date / Time Penicillins Allergy Mild Rash Verified 11/13/19 06:30 PMH/Surg Hx/FS Hx/Imm Hx Previously Healthy: Yes Endocrine/Hematology History: Reports: Hx Anemia - r/t bleeding ulcer - on protonix Denies: Hx Anticoagulant Therapy, Hx Diabetes, Hx Thyroid Disease Cardiovascular History: Denies: Hx Hypertension, Hx Pacemaker/ICD Respiratory History: Reports: Hx Chronic Obstructive Pulmonary Disease (COPD), Other Respiratory Problems/Disorders - emphysema Denies: Hx Asthma, Hx Chronic Bronchitis, Hx Pneumonia GI History: Reports: Hx Gastroesophageal Reflux Disease, Hx Ulcer - duodenal ulcer - 1-2 months ago, Other GI Disorders - hx of SBO History: Reports: Hx Benign Prostatic Hyperplasia, Hx Kidney Stones - bladder calculi, Other Problems/Disorders - BPH - has a johnson Denies: Hx Renal Disease Musculoskeletal History: Reports: Hx Arthritis - right knee Denies: Hx Back Problems Sensory History: Reports: Hx Cataracts - slight cataract, Hx Contacts or Glasses Denies: Hx Hearing Aid Opthamlomology History: Reports: Hx Cataracts - slight cataract, Hx Contacts or Glasses Neurological History: Denies: Hx Dementia, Hx Seizures Psychiatric History: Denies: Hx Substance Abuse - Cancer History Cancer Type, Location and Year: bph - Surgical History Surgery Procedure, Year, and Place: right inguinal HERNIA REPAIR 08/29/16. tonsillectomy and adenoids as a child Hx Anesthesia Reactions: No - Immunization History Date of Influenza Vaccine: up to date Hx Pertussis Vaccination: No Immunizations Up to Date: Yes Infectious Disease History: No Infectious Disease History: Denies: Hx Hepatitis, Hx Human Immunodeficiency Virus (HIV), Traveled Outside the [place] in Last 30 Days - Family History Known Family History: Positive: Diabetes - sister, Other - CA Family History: FHx of CA (brothers) - Social History Occupation: Unemployed Lives: With Family Alcohol Use: None Hx Substance Use: No Substance Use Type: Reports: None Hx Tobacco Use: Yes Smoking Status (MU): Former Smoker Review of Systems Negative: Fever, Chills, Fatigue, Skin Diaphoresis Negative: Palpitations, Chest Pain Negative: Shortness Of Breath, Cough Negative: Abdominal Pain, Vomiting, Diarrhea, Nausea Genitourinary: Other - gross hematuria and burning with urination Positive: hematuria Negative: Arthralgia, Myalgia Skin: Negative Neurological: Negative All Other Systems Reviewed And Are Negative: Yes Physical Exam Triage Information Reviewed: Yes Vital Signs On Initial Exam: Initial Vitals Temp Pulse Resp BP Pulse Ox 99.2 F 76 18 180/78 97 11/13/19 06:24 11/13/19 06:24 11/13/19 06:24 11/13/19 06:24 11/13/19 06:24 Vital Signs Reviewed: Yes Appearance: Positive: Well-Appearing, Well-Nourished Skin: Positive: Warm, Skin Color Reflects Adequate Perfusion Head/Face: Positive: Normal Head/Face Inspection Eyes: Positive: EOMI, Conjunctiva Clear Neck: Positive: Supple, No Lymphadenopathy Respiratory/Lung Sounds: Positive: Clear to Auscultation, Breath Sounds Present Cardiovascular: Positive: Pulses are Symmetrical in both Upper and Lower Extremities Bowel Sounds: Positive: Present Musculoskeletal: Positive: Strength/ROM Intact Neurological: Positive: Speech Normal Psychiatric: Positive: Affect/Mood Appropriate AVPU Assessment: Alert Procedures - Sedation Patient Received Moderate/Deep Sedation with Procedure: No Diagnostics - Vital Signs Vital Signs Temp Pulse Resp BP Pulse Ox 11/13/19 13:10 75 162/93 98 11/13/19 13:00 50 100 11/13/19 12:40 56 134/69 100 11/13/19 12:10 54 124/62 98 11/13/19 12:00 58 98 11/13/19 11:40 60 116/73 98 11/13/19 11:10 60 137/79 96 11/13/19 11:00 70 98 11/13/19 10:41 74 174/109 97 11/13/19 10:10 75 130/85 99 11/13/19 10:00 73 99 11/13/19 09:53 18 11/13/19 09:40 81 162/99 98 11/13/19 09:11 78 176/96 98 11/13/19 09:10 79 98 11/13/19 08:30 18 11/13/19 06:24 99.2 F 76 18 180/78 97 - Laboratory Lab Results: Lab Results 11/13/19 11/13/19 11/13/19 Range/Units 06:50 07:45 07:45 WBC 5.7 (3.5-10.8) 10^3/uL RBC 3.82 L (4.18-5.48) 10^6 /uL Hgb 11.5 L (14.0-18.0) g/dL Hct 35 L (42-52) % MCV 91 (80-94) fL MCH 30 (27-31) pg MCHC 33 (31-36) g/dL RDW 14 (10-15) % Plt Count 148 L (150-450) 10^3/uL MPV 9.2 (7.4-10.4) fL Neut % (Auto) 65.7 % Lymph % (Auto) 19.5 % [place] % (Auto) 8.8 % Eos % (Auto) 5.0 % Baso % (Auto) 1.0 % Absolute Neuts (auto) 3.8 (1.5-7.7) 10^3/ul Absolute Lymphs (auto) 1.1 (1.0-4.8) 10^3/ul Absolute Monos (auto) 0.5 (0-0.8) 10^3/ul Absolute Eos (auto) 0.3 (0-0.6) 10^3/ul Absolute Basos (auto) 0.1 (0-0.2) 10^3/ul Absolute Nucleated RBC 0.0 10^3/ul Nucleated RBC % 0.0 INR (Anticoag Therapy) (0.82-1.09) APTT (26.0-38.0) seconds Sodium 138 (135-145) mmol/L Potassium 4.3 (3.5-5.0) mmol/L Chloride 101 (101-111) mmol/L Carbon Dioxide 33 H (22-32) mmol/L Anion Gap 4 (2-11) mmol/L BUN 23 (6-24) mg/dL Creatinine 1.18 H (0.67-1.17) mg/dL Est GFR ( Amer) 73.2 (>60) Est GFR (Non-Af Amer) 60.5 (>60) BUN/Creatinine Ratio 19.5 (8-20) Glucose 116 H (70-100) mg/dL Calcium 9.6 (8.6-10.3) mg/dL Total Bilirubin 0.60 (0.2-1.0) mg/dL AST 18 (13-39) U/L ALT 11 (7-52) U/L Alkaline Phosphatase 57 (34-104) U/L Total Protein 6.7 (6.4-8.9) g/dL Albumin 4.1 (3.2-5.2) g/dL Globulin 2.6 (2-4) g/dL Albumin/Globulin Ratio 1.6 (1-3) Urine Color Red A Urine Appearance Turbid Ur Specific [place] 1.019 (1.010-1.030) Urine WBC (Auto) Almond Blancher Operator Urine RBC (Auto) 3+(>10/hpf) A (Absent) Urine Bacteria Almond Blancher Operator 11/13/19 Range/Units 07:45 WBC (3.5-10.8) 10^3/uL RBC (4.18-5.48) 10^6 /uL Hgb (14.0-18.0) g/dL Hct (42-52) % MCV (80-94) fL MCH (27-31) pg MCHC (31-36) g/dL RDW (10-15) % Plt Count (150-450) 10^3/uL MPV (7.4-10.4) fL Neut % (Auto) % Lymph % (Auto) % [place] % (Auto) % Eos % (Auto) % Baso % (Auto) % Absolute Neuts (auto) (1.5-7.7) 10^3/ul Absolute Lymphs (auto) (1.0-4.8) 10^3/ul Absolute Monos (auto) (0-0.8) 10^3/ul Absolute Eos (auto) (0-0.6) 10^3/ul Absolute Basos (auto) (0-0.2) 10^3/ul Absolute Nucleated RBC 10^3/ul Nucleated RBC % INR (Anticoag Therapy) 0.91 (0.82-1.09) APTT 30.7 (26.0-38.0) seconds Sodium (135-145) mmol/L Potassium (3.5-5.0) mmol/L Chloride (101-111) mmol/L Carbon Dioxide (22-32) mmol/L Anion Gap (2-11) mmol/L BUN (6-24) mg/dL Creatinine (0.67-1.17) mg/dL Est GFR ( Amer) (>60) Est GFR (Non-Af Amer) (>60) BUN/Creatinine Ratio (8-20) Glucose (70-100) mg/dL Calcium (8.6-10.3) mg/dL Total Bilirubin (0.2-1.0) mg/dL AST (13-39) U/L ALT (7-52) U/L Alkaline Phosphatase (34-104) U/L Total Protein (6.4-8.9) g/dL Albumin (3.2-5.2) g/dL Globulin (2-4) g/dL Albumin/Globulin Ratio (1-3) Urine Color Urine Appearance Ur Specific Emmons (1.010-1.030) Urine WBC (Auto) Urine RBC (Auto) (Absent) Urine Bacteria Result Diagrams: 11/13/19 07:45 11/13/19 07:45 Lab Statement: Any lab studies that have been ordered have been reviewed, and results considered in the medical decision making process. GIGU Course/Dx - Course Course Of Treatment: Arrival in the ED, the patient appears to be in no acute distress. Urine obtained which shows gross hematuria with clots. A three-way CBI placed for irrigation. Labs obtained and are unremarkable. Discussed case with Dr. Winchester, urology, who recommends 22 Johnson catheter with irrigation with a piston syringe. This was attempted by RN who was unable to dislodge any clots. Continues to have gross hematuria. Given flomax and 1L NS. Dr. Winchester to see the patient in the ED who was able to dislodge clots. Pt urine clear at this time. OK for DC. He is given Johnson bag and catheter care instructions. Patient will follow-up with urology on Friday. - Diagnoses Differential Diagnoses - Male: Other - bladder CA, BPH, bleeding from prostate Provider Diagnoses: Gross hematuria Discharge ED - Sign-Out/Discharge Documenting (check all that apply): Patient Departure - Discharge Plan Condition: Stable Disposition: HOME Patient Education Materials: Johnson Catheter Placement and Care (ED), Hematuria (ED) Referrals: No Primary Care Phys,NOPCP [Primary Care Provider] - Aleksandar Winchester MD [Medical Doctor] - Additional Instructions: Please call urology office on Friday morning If your catheter becomes clogged, or you develop a fever, please return to the ED immediately - Billing Disposition and Condition Condition: STABLE Disposition: Home - Attestation Statements Provider Attestation: I have seen the patient with the NICO and agree with the plan and documentation below except as noted: Briefly this is a 74-year-old male hematuria found to have significant clots. CT scan with mass versus clot in the bladder. Dr. White evaluated for follow-up with urology. Bladder irrigated. Myron Omalley MD
[2019-11-13 16:07] VITALS: BP 126/69
--- NOTE | 2019-11-13 16:41 | CONS ---
CONSULTATION NOTE: DATE OF CONSULT: 11/13/19 HISTORY OF PRESENT ILLNESS: Mr. Reyes is a 74-year-old white male who has a chronic COPD secondary to heavy chronic smoking, he is on 24-hour oxygen and on inhalers for his lungs. He had a long history of bladder outlet obstruction and he went into urinary retention about 3 years ago. In February 2017, Dr. White performed transurethral resection of the prostate. The pathology was benign and he did well following the surgery with adequate stream and bladder emptying. His voiding has been stable with nocturia up to 3 times, day frequency every 2 hours with some decreased urinary stream, but feeling of good bladder emptying. He denies any recent history of gross hematuria or urinary tract infections. About 3 days ago, he started having painless hematuria. Last night, the hematuria became worse and he went into clot urinary retention and he presented to the emergency room today for management. In the emergency room, he had a Donis catheter placed and about 1,000 cc of bloody urine was drained. A CT urogram was then obtained showing normal kidneys and ureters without any abnormal filling defects. The bladder was distended. The prostate was large impinging on the base of the bladder. There was a soft tissue mass noted in the right base of the bladder measuring about 5 cm. The mass was nonenhancing and it could represent either a bladder tumor or a large blood clot. Following the catheter insertion and irrigation, his urine remained bloody. consultation was obtained. I came to see him in the ER, he had a Donis catheter in place draining bloody urine, the bladder seemed to be still moderately distended. I changed his Donis catheter to a 24 Fr catheter, and after multiple irrigations, I was able to evacuate about 50 cc of fresh clots from his bladder. The catheter was kept in place and the patient was observed for another hour and the urine remained clear. PLAN: The plan at this time is to discharge him home with the Donis catheter. He was instructed regarding the care of the Donis and was also instructed to come back to the emergency room this week-end if the gross hematuria recurs and he has recurrence of the clot retention or if he runs a fever. The patient will be seen next week in the office. Considering the history of chronic smoking, he is at high risk of having bladder tumors and a cystoscopy will be performed to evaluate the prostate and the bladder. If the bleeding turns out to be prostatic in origin, he will be placed on finasteride. [id number]/[facility] #: [id number] [facility]ERNay
== END 2019-11-13 15:30 | disposition home or self-care (01) ==
LOC: ED 06:22
DX: R31.0 Gross hematuria (principal); R91.1 Solitary pulmonary nodule; N40.0 Benign prostatic hyperplasia without lower urinary tract symptoms; Z88.0 Allergy status to penicillin; Z87.891 Personal history of nicotine dependence
CPT/HCPCS: 36415; 51702; 74178; 76377; 80053; 81003; 85025; 85610; 85730; 96361; 96374; 96376; 99283; J2270; Q9967

== ENCOUNTER 2019-11-24 21:30 | Emergency (ER) | payer MEDICARE, OTHER ==
[2019-11-25 02:14] LABS: Urine Appearance Clear; Urine Bilirubin Negative (Negative); Urine Blood 3+ (Negative); Urine Glucose Negative (Negative); Urine Ketones Negative (Negative); Urine Nitrite Negative (Negative); Urine Protein 1+(30 mg/dL) (Negative); Urine Urobilinogen Negative (Negative)
[2019-11-25 02:16] LABS: Urine Bacteria Absent (Absent); Urine Red Blood Cell Trace(0-2/hpf) (Absent); Urine White Blood Cell Trace(0-5/hpf) (Absent)
[2019-11-25 02:17] LABS: Urine Color Red
--- NOTE | 2019-11-25 02:44 | ED ---
GI/ HPI - HPI Summary HPI Summary: Patient is a 74 y/o M presenting to [facility] with chief complaint of blood in his Johnson catheter. Blood was first noticed the evening of 11/24/19 at around 1999. Patient also reports a burning sensation at his meatus and RLQ abdominal pain, where he had a previous hernia mesh surgery. He states that the bleeding has progressively worsened and notes production of blood clots as well. Urine bag is not attached to leg, he notes that he has been dragging his urine bag on the floor. He had similar Sx around two weeks ago. Patient notes that there was a mass found at his bladder during this previous visit as well. Patient is scheduled for scope 12/07/19. Patient notes Hx of prostate surgery and blood transfusions for GI bleed secondary to excessive Tylenol consumption. He takes Symbicort for his COPD. Patient also has a Provair inhaler. Pencillin allergy noted. Home medications and allergies are reviewed. - History of Current Complaint Chief Complaint: EDUrogenitalProblems Time Seen by Provider: 11/25/19 01:32 Stated Complaint: BLADDER PROBLEM PER GRANDSON Hx Obtained From: Patient Onset/Duration: Started Hours Ago, Still Present Timing: Lasting Hours Severity: Moderate Current Severity: Moderate Pain Intensity: 6 Location of Pain: RLQ Additional Locations for Males: Penis Pain Characteristics: Burning Associated Signs and Symptoms: Positive: Hematuria, Abdominal Pain, Other: - burning sensation at the meatus - Additional Pertinent History Primary Care Physician: CHUCK - Allergy/Home Medications Allergies/Adverse Reactions: Allergies Allergy/AdvReac Type Severity Reaction Status Date / Time Penicillins Allergy Mild Rash Verified 11/24/19 21:41 PMH/Surg Hx/FS Hx/Imm Hx Endocrine/Hematology History: Reports: Hx Anemia - r/t bleeding ulcer - on protonix Denies: Hx Anticoagulant Therapy, Hx Diabetes, Hx Thyroid Disease Cardiovascular History: Denies: Hx Hypertension, Hx Pacemaker/ICD Respiratory History: Reports: Hx Chronic Obstructive Pulmonary Disease (COPD), Other Respiratory Problems/Disorders - emphysema Denies: Hx Asthma, Hx Chronic Bronchitis, Hx Pneumonia GI History: Reports: Hx Gastroesophageal Reflux Disease, Hx Ulcer - duodenal ulcer - 1-2 months ago, Other GI Disorders - hx of SBO History: Reports: Hx Benign Prostatic Hyperplasia, Hx Kidney Stones - bladder calculi, Other Problems/Disorders - BPH - has a johnson Denies: Hx Renal Disease Musculoskeletal History: Reports: Hx Arthritis - right knee Denies: Hx Back Problems Sensory History: Reports: Hx Cataracts - slight cataract, Hx Contacts or Glasses Denies: Hx Hearing Aid Opthamlomology History: Reports: Hx Cataracts - slight cataract, Hx Contacts or Glasses Neurological History: Denies: Hx Dementia, Hx Seizures Psychiatric History: Denies: Hx Substance Abuse - Cancer History Cancer Type, Location and Year: bph - Surgical History Surgery Procedure, Year, and Place: right inguinal HERNIA REPAIR 08/29/16. tonsillectomy and adenoids as a child Hx Anesthesia Reactions: No - Immunization History Date of Influenza Vaccine: up to date Infectious Disease History: No Infectious Disease History: Denies: Hx Hepatitis, Hx Human Immunodeficiency Virus (HIV), Traveled Outside the [place] in Last 30 Days - Family History Known Family History: Positive: Diabetes - sister, Other - CA Family History: FHx of CA (brothers) - Social History Alcohol Use: None Hx Substance Use: No Substance Use Type: Reports: None Hx Tobacco Use: Yes Smoking Status (MU): Former Smoker Review of Systems Positive: Abdominal Pain Positive: burning - burning sensation at the meatus , hematuria All Other Systems Reviewed And Are Negative: Yes Physical Exam - Summary Physical Exam Summary: General: Well-developed, Thin, elderly male. No acute distress. Tam hematuria in Johnson. HEENT: Normocephalic, Atraumatic. Eyes: Conjuctiva normal, PERRL. Oropharynx: Clear, mucous membranes moist, (-) exudates. Neck: Soft, FROM, (-) lymphadenopathy, (-) thyromegaly, (-) JVD. Cardiovascular: Normal sinus rhythm, (-) murmur. Lungs: Clear to auscultation bilaterally (-) wheezes, (-) rales, (-) rhonchi. Abdomen: Soft, mild RLQ tenderness, non-distended, (-) organomegaly, normal bowel sounds. Back: (-) CVA tenderness Extremities: No edema. Skin: Warm, dry, (-) rash. Neuro: Alert and oriented x3, no focal deficits. Psychiatric: Mood normal, affect normal. Triage Information Reviewed: Yes Vital Signs On Initial Exam: Initial Vitals Temp Pulse Resp BP Pulse Ox 99.0 F 84 16 119/80 96 11/24/19 21:35 11/24/19 21:35 11/24/19 21:35 11/24/19 21:35 11/24/19 21:35 Vital Signs Reviewed: Yes Procedures - Sedation Patient Received Moderate/Deep Sedation with Procedure: No Diagnostics - Vital Signs Vital Signs Temp Pulse Resp BP Pulse Ox 11/25/19 02:00 64 99 11/25/19 01:49 63 128/74 99 11/25/19 01:20 70 97 11/25/19 01:19 76 159/93 97 11/24/19 23:57 99.4 F 65 16 135/83 97 11/24/19 21:35 99.0 F 84 16 119/80 96 - Laboratory Lab Results: Lab Results 11/25/19 Range/Units 02:00 Urine Color Pending Urine Appearance Clear Urine pH 6.0 (5-9) Ur Specific [place] 1.000 L (1.010-1.030) Urine Protein 1+(30 mg/dl) A (Negative) Urine Ketones Negative (Negative) Urine Blood 3+ A (Negative) Urine Nitrate Negative (Negative) Urine Bilirubin Negative (Negative) Urine Urobilinogen Negative (Negative) Ur Leukocyte Esterase Trace A (Negative) Urine Glucose Negative (Negative) Result Diagrams: 11/25/19 02:37 11/25/19 02:37 Lab Statement: Any lab studies that have been ordered have been reviewed, and results considered in the medical decision making process. GIGU Course/Dx - Course Course Of Treatment: 74 year old male presents with daughter for hematuria. patient states he has been leaking blood into his johnson catheter again tonight. large amount of blood with clots. was here recently for this. saw physician, had johnson flushed and was advised to follow up with urology for cystoscopy. it was not scheduled until dec 07. no f/c/n/v/d. no abd pain. he does describe pressure and burning. exam wnl. workup shows only blood in urine. johnson catheter is flushed until urine runs clear. leg bag applied. follow up with PCP , follow up sooner for any worsening symptoms. Assessment/Plan: During ED course, patient received fluids. - Diagnoses Provider Diagnoses: Hematuria Discharge ED - Sign-Out/Discharge Documenting (check all that apply): Patient Departure - discharge - Discharge Plan Condition: Stable Disposition: HOME Patient Education Materials: Hematuria (ED) Referrals: Herbie White MD [Medical Doctor] - 1 Day Additional Instructions: CALL YOUR UROLOGIST IN THE MORNING TO SEE IF YOU CAN HAVE YOUR SCOPE MOVED UP. PLEASE RETURN TO ED FOR ANY NEW OR WORSENING SYMPTOMS. - Billing Disposition and Condition Condition: STABLE Disposition: Home - Attestation Statements Document Initiated by Scribe: Yes Documenting Scribe: FÉLIX DIEGO Provider For Whom Scribe is Documenting (Include Credential): PARKER RIVERS MD Scribe Attestation: I, FÉLIX DIEGO, scribed for PARKER RIVERS MD on 11/25/19 at 0610. Scribe Documentation Reviewed: Yes Provider Attestation: The documentation as recorded by the FÉLIX smith accurately reflects the service I personally performed and the decisions made by me, PARKER RIVERS MD Status of Scribe Document: Viewed
[2019-11-25 02:49] LABS: ABS Basophils 0.1 10^3/ul (0-0.2); ABS Eosinophils 0.3 10^3/ul (0-0.6); ABS Lymphocytes 1.2 10^3/ul (1.0-4.8); ABS Monocytes 0.6 10^3/ul (0-0.8); ABS Neutrophils 3.9 10^3/ul (1.5-7.7); Eosinophil % 4.8 %; Hematocrit 34 % (42-52); Hemoglobin 11.5 g/dL (14.0-18.0); Lymphocyte % 20.1 %; Mean Corpuscular HGB Conc 34 g/dL (31-36); Mean Corpuscular Hemoglobin 31 pg (27-31); Mean Corpuscular Volume 91 fL (80-94); Mean Platelet Volume 9.2 fL (7.4-10.4); Platelet Count 179 10^3/uL (150-450); Red Blood Count 3.71 10^6 /uL (4.18-5.48); Red Cell Distribution Width 14 % (10-15); White Blood Count 6.1 10^3/uL (3.5-10.8)
[2019-11-25 02:53] LABS: INR 0.94 (0.82-1.09)
[2019-11-25] MEDS: NS 0.9% 1000 ML** 1,000 ML IV ONE (02:57)
[2019-11-25 03:04] LABS: Albumin/Globulin Ratio 1.6 (1-3); BUN/Creatinine Ratio 24.8 (8-20); EGFR African American 83.8 (>60); EGFR Non-African American 69.2 (>60); Globulin 2.5 g/dL (2-4); Total Bilirubin 0.6 mg/dL (0.2-1.0); Total Protein 6.5 g/dL (6.4-8.9)
[2019-11-25] MEDS: Albuterol HFA INHALER* 8 gm MDI INH ONE (05:33)
[2019-11-25 05:38] VITALS: BP 153/87
--- NOTE | 2019-11-28 12:11 | ED ---
Imaging and Labs Follow Up Follow Up Type: Labs/Cultures Labs/Culture Result: Urine culture growing 75-100k staph epidermidis. Patient Communication/Plan: Pt. with indwelling johnson. Was seen for hematuria and dysuria. Attempted to call pt. today at 1210 with no answer. Message left to return call. Rx for macrobid sent to pharmacy. Provider Diagnoses: Hematuria
== END 2019-11-25 05:37 | disposition home or self-care (01) ==
LOC: ED 21:30
DX: R31.9 Hematuria, unspecified (principal); J44.9 Chronic obstructive pulmonary disease, unspecified; D64.9 Anemia, unspecified; K21.9 Gastro-esophageal reflux disease without esophagitis; N40.0 Benign prostatic hyperplasia without lower urinary tract symptoms; Z87.442 Personal history of urinary calculi; Z87.891 Personal history of nicotine dependence; Z79.899 Other long term (current) drug therapy; Z88.0 Allergy status to penicillin
CPT/HCPCS: 36415; 80053; 81003; 81015; 83605; 83690; 85025; 85610; 87077; 87086; 87186; 96360; 99283; A9270-GY